=== PATIENT | female | born 1935 | race Hispanic/Latino ===

== ENCOUNTER 2017-06-09 13:52 | Emergency (ER) | payer MEDICARE ==
[~2017-06-09] VITALS: Ht 142.2 cm; Wt 35.4 kg
--- NOTE | ~2017-06-09 | EKG ---
[facility] [address] [facility], [place] [address] Draft EK completed, results pending confirmation PATIENT NAME: ARAMIS STARK Electrocardiogram DATE OF : 33 PHYSICIAN: PRELIMINARY REPORT #: [id number] REPORT IS CONFIDENTIAL AND NOT TO BE RELEASED WITHOUT AUTHORIZATION
[~2017-06-09 13:52] MED LIST: ALBUTEROL2.5 MG/3 M INH; ASPIR-LOW81 MG PO; AZITHROMYCIN500 MG PO; BENAZEPRIL HCL20 MG PO; BUSPIRONE HCL5 MG PO; CEPHALEXIN500 M1 PO; DEXILANT60 MG PO; FERROUS SULFAT325 MG PO; HYDROCHLOROTH12.5 M1 PO; HYDROCODON-ACE1 EAC8 PO; IPRAT-ALBUT 0.5-3 ML INH; LEXAPRO10 MG PO; METOPROLOL TART25 MG PO; MIRALAX17 GM PO; PREDNISONE10 MG PO; RANITIDINE HCL150 MG PO; SYNTHROID50 MCG PO; VITAMIN C500 M1 PO; ZOFRAN ODT4 MG PO
[2017-06-09] MEDS ORDERED: NORCO 7.5-3251 EACH PO (14:15)
[2017-06-09] MEDS ORDERED: BUSPIRONE HCL5 MG PO (14:15)
--- NOTE | 2017-06-09 21:36 | EKG ---
[facility] [address] [facility] [place] [address] Signed Sinus tachycardia Left bundle branch block Abnormal ECG No previous ECGs available Confirmed by YADI HAWK MD ([id number]) on 06/09/2017 9:36:34 PM Electronically Signed By: YADI HAWK MD 06/09/17 2136 PATIENT NAME: JOE STARKNIA EULOGIO Electrocardiogram DATE OF : 33 PHYSICIAN: YADI HAWK MD REPORT #: [id number] REPORT IS CONFIDENTIAL AND NOT TO BE RELEASED WITHOUT AUTHORIZATION
--- NOTE | 2017-06-09 21:36 | EKG ---
[facility] [address] [facility] [place], [place] [address] Signed Sinus tachycardia Left bundle branch block Abnormal ECG When compared with ECG of 09-JUN-2017 14:04, (Unconfirmed) No significant change was found Confirmed by YADI HAWK MD ([id number]) on 06/09/2017 9:36:44 PM Electronically Signed By: YADI HAWK MD 06/09/17 2136 PATIENT NAME: STARKARAMIS Electrocardiogram DATE OF : 33 PHYSICIAN: YADI HAWK MD REPORT #: [id number] REPORT IS CONFIDENTIAL AND NOT TO BE RELEASED WITHOUT AUTHORIZATION
== END 2017-06-09 17:00 ==
LOC: ED 13:52
DX: I44.7 Left bundle-branch block, unspecified (principal); I10 Essential (primary) hypertension; Z88.6 Allergy status to analgesic agent; Z79.899 Other long term (current) drug therapy
CPT/HCPCS: 80053; 84484; 85025; 85610; 93005; 93010; 96374; 99285

== ENCOUNTER 2018-01-08 11:17 | Inpatient (IN) | payer MEDICARE ==
[~2018-01-08] VITALS: Ht 142.2 cm; Wt 43.5 kg
--- OUTSIDE RECORDS SUMMARY | ~2018-01-08 | XMS | Encounter Summary ---
Demographics + + + | Address | [address] | | | [place] [address] | + + + | Home Phone | | + + + | Preferred Language | Unknown | + + + | Marital Status | | + + + | Hindu Affiliation | 1041 | + + + | Race | Unknown | + + + | Ethnic Group | Unknown | + + + Author + + + | Author | [facility] | | | and Rajinderana | + + + | Organization | [facility] | | | and Rajinderana [...] Team Providers + +------+ + | Care Pin Game Machine Inspector Name | Role | Phone | + [...] + + | 10/21/ | Office | [facility] [place] | Ranjan Gómez MD | Chest pain, | | 2018 | Visit | CARDIOLOGY [address] | | unspecified type | | | | [place], | | | | | | [place] [address] | | | | | | [phone] | | | +--------+---------+ + + + [...] on file | | + + + as of this encounter Last Filed Vital Signs + + + + | Vital Sign | Reading | Time Taken | + + + + | Blood Pressure | 145/72 | 10/21/20171127 PDT | + + + + | Pulse | 45 | 10/21/20171127 PDT | + + + + | Temperature | - | - | + + + + | Respiratory Rate | 14 | 10/21/20171127 PDT | + + + + | Oxygen Saturation | - | - | + + + + | Inhaled Oxygen | - | - | | Concentration | | | + + + + | Weight | 36 kg (79 lb 5.9 oz) | 10/21/20171127 PDT | + + + + | Height | 142.2 cm (4' 8") | 10/21/20171127 PDT | + + + + | Body Mass Index | 17.79 | 10/21/20171127 PDT | + + + + in this encounter Instructions Patient Instructions - Sirisha Rich RN - 10/21/2017 1100 PDT Decrease Amiodarone to 100mg one time daily Follow up appointment: 6 months Provider: Ranjan Gómez MD Date: Check-In Time: in this encounter Progress Notes Ranjan Gómez MD - 10/21/2017 1100 PDTFormatting of this note may be different from the o riginal. PATIENT NAME: Luz Falcon : 1935: AGE: 82 y.o. PRIMARY CARE: Brooks Cardnoa MD CARDIOLOGY CLINIC PROGRESS NOTE Ms. Falcon [...] change was found Confirmed by JOLENE LOWE, [facility] ([id number] on 10/21/2017 4:29:15 PM IMAGING: No results found. Resting ECG 10/21/17: Sinus bradycardia 45 bpm, first-degree AV block, left bundle branch b lock, when compared with prior ECG dated , the CA interval is slightly more prolonge d DIAGNOSES [...] this patient. Ranjan Gómez MD, 11/03/2017 11:39 in this encounter Plan of Treatment Not on fileas of this encounter Procedures + +--------+ + + + | Procedure Name | Priori | Date/Time | Associated Diagnosis | Comments | | | ty | | | | + +--------+ + + + | ECG 12 LEAD | Routin | 10/21/2017 | Chest pain, | Results for this | | | e | 1139 PDT | unspecified type | procedure are in the | | | | | | results section. | + +--------+ + + + in this encounter Results ECG 12 lead (10/21/2017 1139) + + + + + | Component | Value | Ref Range | Performed At | + + + + + | VENTRICULAR RATE EKG | 45 | BPM | [facility] | + + + + + | ATRIAL RATE | 45 | BPM | [facility] | + + + + + | P-R INTERVAL | 202 | ms | [facility] | + + + + + | QRS DURATION | 152 | ms | [facility] | + + + + + | Q-T INTERVAL | 548 | ms | [facility] | + + + + + | Q-T INTERVAL | 474 | ms | [facility] | | (CORRECTED) | | | | + + + + + | P WAVE AXIS | 67 | degrees | [facility] | + + + + + | QRS AXIS | 5 | degrees | [facility] | + + + + + | T AXIS | 66 | degrees | [facility] | + + + + + | INTERPRETATION TEXT | Sinus bradycardiaLeft | | [facility] | | | bundle branch | | | | | blockAbnormal ECGWhen | | | | | compared with ECG of | | | | | 10-JUL-2017 13:17,No | | | | | significant change was | | | | | foundConfirmed by | | | | | JOLENE LOWE, MATT | | | | | ([id number]) on 10/21/2017 | | | | | 4:29:15 PM | | | + + + + + + + + | Narrative | Performed At | + + + | | | + + + + +---------+ + + | Performing | Address | City/State/Zipcode | Phone Number | | Organization | | | | + +---------+ + + | [facility] | | | | + +---------+ + + in this encounter Visit Diagnoses + + | Diagnosis | + + | Chest pain, unspecified type | + +
--- OUTSIDE RECORDS SUMMARY | ~2018-01-08 | XMS | Clinical Summary ---
Demographics + + + | Address | [address] | | | [place] [address] | + + + | Home Phone | | + + + | Preferred Language | Unknown | + + + | Marital Status | | + + + | Confucianism Affiliation | 1041 | + + + | Race | Unknown | + + + | Ethnic Group | Unknown | + + + Author + + + | Author | [facility] | | | and Rajinderana | + + + | Organization | [facility] | | | and Rajinderana [...] Team Providers + +------+ + | Care Service Station Console Operator Name | Role | Phone | + +------+ + | Brooks Cardona MD | PP | | + +------+ + Allergies + + + + + + | Active Allergy | Reactions | Severity | Noted | Comments | | | | | Date | | + + + + + + | Acetaminophen | Itching | Low | 05/18/19 | | | | | | 15 | | + + + + + + Current Medications + + +--------+---------+------+------+-------+ | Prescription | Sig. | Disp. | Refills | Star | End | Statu | | | | | | t | Date | s | | | | | | Date | | | + + +--------+---------+------+------+-------+ | busPIRone (BUSPAR) | Take 5 mg by mouth 3 | | | | | Activ | | 5 mg tablet | times daily. | | | | | e | + + +--------+---------+------+------+-------+ | dexlansoprazole | Take 60 mg by mouth | | | | | Activ | | (DEXILANT) [address] | Daily. | | | | | e | | capsule | | | | | | | + + +--------+---------+------+------+-------+ | ferrous sulfate | Take 325 mg by mouth | | | | | Activ | | 325 mg tablet | 2 times daily (with | | | | | e | | | breakfast & | | | | | | | | dinner). | | | | | | + + +--------+---------+------+------+-------+ | | Take 1 tablet by | | | | | Activ | | HYDROcodone-acetamin | mouth 3 times daily. | | | | | e | | ophen (NORCO) | | | | | | | | 7.5-325 mg per | | | | | | | | tablet | | | | | | | + + +--------+---------+------+------+-------+ | metoprolol | Take 25 mg by mouth | | | | | Activ | | tartrate (LOPRESSOR) | 2 times daily. | | | | | e | | 25 mg tablet | | | | | | | + + +--------+---------+------+------+-------+ | Multiple | Take 1 tablet by | | | | | Activ | | Vitamins-Minerals | mouth Daily. | | | | | e | | (ADULT MULTIVITAMIN | | | | | | | | WITH MINERALS/IRON) | | | | | | | | TABS | | | | | | | + + +--------+---------+------+------+-------+ | ascorbic acid | Take 500 mg by mouth | | | | | Activ | | (VITAMIN C) 500 mg | Daily. | | | | | e | | tablet | | | | | | | + + +--------+---------+------+------+-------+ | apixaban (ELIQUIS) | Take 1 tablet by | 60 | 1 | 02/2 | | Activ | | 2.5 mg tablet | mouth 2 times daily. | tablet | | 1/20 | | e | | | | | | 18 | | | + + +--------+---------+------+------+-------+ | aspirin 81 MG EC | Take 1 tablet by | 30 | | 02/2 | | Activ | | tablet | mouth Daily. | tablet | | 2/20 | | e | | | | | | 18 | | | + + +--------+---------+------+------+-------+ | | Take 1 tablet by | 30 | 5 | 03/2 | | Activ | | hydroCHLOROthiazide | mouth Daily. | tablet | | 2/20 | | e | | 25 mg tablet | | | | 18 | | | + + +--------+---------+------+------+-------+ | benazepril | Take 40 mg by mouth | | | | | Activ | | (LOTENSIN) 40 MG | Daily. Patient is | | | | | e | | tablet | taking 20mg in the | | | | | | | | am and 20mg in the | | | | | | | | pm | | | | | | + + +--------+---------+------+------+-------+ | amiodarone | Take 0.5 tablets by | 45 | 3 | 07/0 | 08/0 | Activ | | (PACERONE) 200 mg | mouth Daily. | tablet | | 3/20 | 2/20 | e | | tablet | | | | 18 | 19 | | + + +--------+---------+------+------+-------+ Active Problems + + + | Problem | Noted Date | + + + | Chest pain | 10/21/2017 | + + + | Influenza A | 06/10/2017 | + + + | Paroxysmal atrial flutter (HCC) | 06/10/2017 | + + + | Moderate protein-calorie malnutrition (HCC) | 06/10/2017 | + + + | Essential hypertension | 06/10/2017 | + + + | GERD (gastroesophageal reflux disease) | 06/10/2017 | + + + Encounters +--------+---------+ + + + | Date | Type | Specialty | Care Team | Description | +--------+---------+ + + + | 10/21/ | Office | | Ranjan Gómez MD | Chest pain, | | 2018 | Visit | | | unspecified type | +--------+---------+ + + + from Last 3 Months [...] | Blood Pressure | 145/72 | 10/21/2017 1128 PDT | + + + + | Pulse | 45 | 10/21/20171127 PDT | + + + + | Temperature | 35.7 C (96.3 F) | 06/11/2017755 PST | + + + + | Respiratory Rate | 14 | 10/21/20171127 PDT | + + + + | Oxygen Saturation | 98% | 06/11/2017755 PST | + + + + | Inhaled [...] 10/21/20171127 PDT | + + + + Plan of Treatment + + + + + | Health Maintenance | Due Date | Last Done | Comments | + + + + + | Vaccine: | | | | | Dtap/Tdap/Td (1 - | 4 | | | | Tdap) | | | | + + + + + | Vaccine: Zoster (1 | | | | | of 2) | 5 | | | + + + + + | Vaccine: | | 01/19/2014 | | | Pneumococcal 65+ | 5 | | | | Low/Medium Risk (2 | | | | | of 2 - PPSV23) | | | | + + + + + | Vaccine: Influenza | | | | | (#1) | 8 | | | + + + + [...] section. | + +--------+ + + + from Last 3 Months Results ECG 12 lead (10/21/2017 1139) + [...] foundConfirmed by | | | | | MATT FERNÁNDEZ MD | | | | | ([id number]) on 10/21/2017 | | | | | [...] Last 3 Months Insurance + +--------+ +--------+ +---------+ | Payer | Benefi | Subscriber | Type | Phone | Address | | | t Plan | ID | | | | | | / | | | | | | | Group | | | | | + +--------+ +--------+ +---------+ | MEDICARE | MEDICA | [id number] | Medica | [phone] | | | RE | | re | [phone] | | | | PART A | | | | | | | AND B | | | | | + +--------+ +--------+ +---------+ + +--------+ +--------+ + + | Guarantor Name | Accoun | Relation to | Date | Phone | Billing Address | | | t Type | Patient | of | | | | | | | | | | + +--------+ +--------+ + + | LUZ STARK | Person | Self [birth year] | Home: | [address] | | | al/Fam | | 1936 | [phone] | [place] [address] | | | josephine | | | [phone] | | + +--------+ +--------+ + +
[~2018-01-08 11:17] MED LIST changes: +NORCO 7.5-3251 EACH PO; -VITAMIN C500 M1 PO; +VITAMIN C500 M5 PO
--- NOTE | 2018-01-08 16:10 | NUR ---
PATIENT TO THE ROOM. ASSISTED TO BED FROM . DAUGHTER IN ROOM TO ASSIST WITH COMMUNICATION. PATIENT WEAK WITH TRANSFER NEEDING ASSISTANCE. REPOSITIONED IN BED. VITALS DONE. ORIENTED TO ROOM. ASSESSMENT COMPLETE. IV PLACED. SCHEDULED TYLENOL AND TORADOL GIVEN. PATIENT RATING PAIN 6/10.
--- NOTE | 2018-01-08 16:45 | NUR ---
CRYO CUFF IN ROOM. SET UP WITH BREAKFAST ORDER. ENSURE BROUGHT TO ROOM.
[2018-01-08] MEDS ORDERED: HYDROCHLOROTHIA25 MG PO (17:19)
[2018-01-08] MEDS ORDERED: AMIODARONE HCL200 MG PO (17:21)
[2018-01-08] MEDS ORDERED: ELIQUIS2.5 MG PO (17:21)
[2018-01-08] MEDS ORDERED: ONDANSETRON ODT8 MG PO (17:22)
--- NOTE | 2018-01-08 17:45 | NUR ---
TEDS, SCDS, HEEL PROTECTORS PLACED ON PATIENT.
--- NOTE | 2018-01-08 17:45 | NUR ---
PATIENT WAS A DIRECT ADMIT FROM [facility] THIS AFTERNOON. PATIENT WILL BE SWG BED WHILE SHE IS HERE. DR. MCLAUGHLIN HERE TO SEE PATIENT ONCE TO FLOOR. VITALS DONE. IV STARTED. PRN PAIN MEDICATION ORDERED. PATIENT IS PRIMARY SLOVENIAN SPEAKING. DOING WELL WITH FOLLOW INSTRUCTIONS AND ANSWERING QUESTIONS. IF ANY QUESTIONS PLEASE CALL DAUGHTER. NUMBER IS ON THE BOARD. TEDS, SCDS, CYRO, AND HEEL PROTECTORS ON PATIENT. PLAN TO WORK WITH PT AND OT WHILE SHE IS HERE.
--- NOTE | 2018-01-08 21:35 | NUR ---
COOP WITH ASSESSMENT6, TURNS EASILY IN BED, MEDICATED WITH TORADOL IV, DRESSING INTACT R KNEE, TEDHOSE, SCDS, HEEL PROTECTORS IN PLACE, CRYOCUFF IN PLACE
--- NOTE | 2018-01-08 21:59 | NUR ---
Declined MOM and Tylenol. "I get sores in my head states"
--- NOTE | 2018-01-09 00:01 | NUR ---
RESTING, NO C/O PAIN, NO REQUESTS, CRYOCUFF, SCDS, JASPER HOSE, HEEL PROTECTORS IN PLACE, DRESSING R KNEE CDI, GOOD CMS. FRESH WATER WITH NO ICE GIVEN. SL INTACT
--- NOTE | 2018-01-09 01:59 | NUR ---
RESTING, NO C/O PAIN, EARLIER DECLINED TYLENOL SCHEDULED , CRYOCUFF, SCDS, JASPER HOSE AND HEEL PROTECTORS IN PLACE, TURNS SELF IN BED
--- NOTE | 2018-01-09 03:00 | NUR ---
ASSUMED CARE FOR THIS PT AT 0230. PAIN AT THIS TIME IS 6/10, SCHEDULED TORADOL TO BE GIVEN. PT DENIED ANY OTHER NEEDS AT THIS TIME.
--- NOTE | 2018-01-09 05:05 | NUR ---
PT IS RESTING AT THIS TIME.
--- NOTE | 2018-01-09 06:09 | NUR ---
SINCE 229 PT HAD AN UNEVENTFUL NIGHT. SO FAR PT HAS ONLY REQUIRED HER SCHEDULED DOSE OF TORADOL FOR PAIN. PT REFUSES TYLENOL. V/S WDL, KRAMEE TO RIGHT KNEE. NO NEW CONCERNS AT THIS TIME.
--- NOTE | 2018-01-09 07:55 | NUR ---
PATIENT AWAKE IN BED WITH HOB ELEVATED. PATIENT REQUEST TO USE BR. STBY ASSIST TO BR. PATIENT STATING WHILE RESTING IN BED PAIN WAS 3/10. 6/10 WHEN AMBULATING. PATIENT VOIDED 150MLS OF URINE. ASSISTED TO CHAIR FOR BREAKFAST. COFFEE GIVEN TO PATIENT. WARM BLANKER. PATIENTS CRYO FILLED WITH ICE. CALL LIGHT GIVEN TO PATIENT. PATIENT VERY STRONG WITH ACTIVITY. UPDATED ON PLAN OF CARE AND PLAN FOR MEDICATION THIS MORNING WITH BREAKFAST.
--- NOTE | 2018-01-09 09:49 | NUR ---
PATIENT FINISHED BREAKFAST. DOING WELL. EATING 50 PERCENT. ASSISTED IN ORDERING LUNCH. PATIENT STATING HER CURRENT PAIN RATING IS 3/10 WITH THE TORADOL THAT WAS GIVEN THIS MORNING. UPDATED ON PLAN OF CARE TO DO PT THIS MORNING. ASKED IF SHE WOULD LIKE MORE PAIN MEDICATION BEFORE THERAPY. PATIENT STATED OF RIGHT NOW SHE IS DOING WELL. UPDATED CHELSEY FROM PT THAT SHE IS READY WHEN EVER SHE IS TO WORK WITH HER. CALL LIGHT WITHIN REACH. PATIENT SITTING IN CHAIR WITH LEGS ELEVATED.
--- NOTE | 2018-01-09 10:02 | NUR ---
physical therapy in room working with patient.
--- NOTE | 2018-01-09 10:49 | NUR ---
patient resting in bed. patient stated having 6/10 pain. oxy 5 mg given. patient request to take just one pill at this time. scds, cryo, and heel protectors in place. no other needs at this time.
--- NOTE | 2018-01-09 11:40 | NUR ---
PATIENT SET UP FOR LUNCH. PATEINT CURRENTLY ON HER PHONE. STATING JUST EAT IN BED AT THIS TIME. PAIN OKAY AT THIS TIME.
--- NOTE | 2018-01-09 11:57 | NUR ---
THIS MORNING PATIENT WAS ALREADY SITTING UP IN HER CHAIR. LINENS CHANGED.
[2018-01-09] MEDS ORDERED: BENAZEPRIL HCL40 MG PO (11:58)
--- NOTE | 2018-01-09 12:07 | NUR ---
MED REC COMPLETE
--- NOTE | 2018-01-09 12:09 | NUR ---
COME IN TO CHECK ON HER TO SEE IF SHE WAS DONE WITH LUNCH AND SHE WAS THAN SHE SAID SHE HAD TO USE THE RESTROOM TOOK HER WAITED UNTIL SHE WAS DONE. NOW SITTING UP IN THE CHAIR WAITING DO GET A BED BATH DONE.
--- NOTE | 2018-01-09 12:38 | NUR ---
PATIENT IS SITTING UP IN CHAIR BED BATH DONE. CRYO ON AND FEET UP CALL LIGHT NEXT TO HER.
--- NOTE | 2018-01-09 13:22 | NUR ---
PATIENT SITTING UP IN CHAIR. PATIENT STATED NO PAIN AT THIS TIME.
--- NOTE | 2018-01-09 13:54 | NUR ---
PATIENT WORKING WITH PT. AMBULATING IN ANTOINE. TOLERATING THE ENTIRE LAP WELL.
--- NOTE | 2018-01-09 15:15 | NUR ---
WALKED INTO HER ROOM AROUND 1500 AND PATIENT WAS SLEEPING SO I LEFT THE NEWSPAPERS ON HER BEDSIDE TABLE. NOW SHE HAS VISITORS IN HER ROOM.
--- NOTE | 2018-01-09 15:22 | NUR ---
PATIENT HAD FMAILY VISITORS. GAVE SCHEDULED MEDICATION. PATIENT STATED THAT HER PAIN IS 8/10. OXY 5 MG GIVEN WITH PLAN TO RECHECK IN 30 MIN AND IF PAIN NOT IMPROVED THAN GIVEN ANOTHER 5 MG OXY. PATIENT AGREED. ORDERED DINNER. CRYO FILLED WITH ICE AT THIS TIME.
--- NOTE | 2018-01-09 16:43 | NUR ---
MARYJANETNET DOING WELL TODAY. SCHEDULED TYLENOL GIVEN. OXY 5 MG GIVEN X 2. AMBULATED IN THE ANTOINE WITH PT. TOLERATING WELL. CRYO, TEDS, SCDS, AND HEEL PROTECTORS SET UP FOR PATIENT. ENCOURAGING PO. OFFERING ENSURE INBETWEEN MEALS.
--- NOTE | 2018-01-09 18:14 | NUR ---
patient requesting to ambulate in rowley. patient tolerated well. ambulated well. assisted to br to brush her teeth. assisted back to bed. patient tolerated well.
--- NOTE | 2018-01-09 20:00 | NUR ---
RECEIVED REPORTAT 0, FOUND PT IN BED SLEEPING. PT DENIED PAIN AND HAD NO OTHER NEEDS OR CONCERNS AT THAT TIME.
--- NOTE | 2018-01-09 20:15 | NUR ---
FILLED CRYO WITH FRESH ICE. PT NEEDS NOTHING AT THIS TIME.
--- NOTE | 2018-01-09 22:00 | NUR ---
V/S ARE WDL, SOME VERY FINE CRACKLES NOTED IN THE BASES. ABD SOUNDS ARE ACTIVE. RIGHT KNEE DRESSING IS C/D/I, EDEMA ON RIGHT KNEE IS MINIMAL. PEDIS PULSES ARE +2. PAIN IS WELL CONTROLLED WITH SCHEDULED AND PRN PAIN MEDS AVAILABLE. SCHEDULED TYLENOL WAS GIVEN AND PT DID NOT REFUSE. NO NEW CONCERNS AT THIS TIME.
--- NOTE | 2018-01-10 | NUR ---
PT IS SLEEPING AT THIS TIME.
--- NOTE | 2018-01-10 00:20 | NUR ---
MAINTENANCE DATA ANALYST ROUNDING. PT RESTING WITH EYES CLOSED, APPEARS TO BE SLEEPING, PT WAKES EASILY WHEN MOLD PRESS OPERATOR ENTERS THE ROOM. CALL LIGHT WITHIN REACH.
--- NOTE | 2018-01-10 01:35 | NUR ---
HELPED PT TO THE BATHROOM AND BACK TO BED WITH HER FWW. FILLED HER CRYO WITH MORE ICE. BEDSIDE TABLE AND CALL LIGHT IN REACH. BED ALARM SET.
--- NOTE | 2018-01-10 02:00 | NUR ---
PT AT THIS TIME IS SLEEPING. NO NEW CONCERNS AT THIS TIME.
--- NOTE | 2018-01-10 06:38 | NUR ---
PT SLEPT MOST OF THIS SHIFT. V/S ARE WDL, RIGHT KNEE EDEMA IS MINIMAL. PEDIS PULSES ARE +2 KRYO TO RIGHT KNEE. PAIN IS WELL CONTROLLED AND PT IS ABLE TO GET IN AND OUT OF BED BY HERSELF. BILATERAL LOWER LOBES HAVE FINE CRACKLES PRESENT. UPPER LOBES ARE CLEAR. PT DENIES SOB. NO NEW CONCERNS SO FAR THIS SHIFT.
--- NOTE | 2018-01-10 08:46 | NUR ---
Kimberleyt used restroom, she is up in her chair using the cryo cuff, she ate her breakfast and is currently relaxing, patient needed no other assistance at the time, will recheck soon
--- NOTE | 2018-01-10 11:15 | NUR ---
DR MCLAUGHLIN CALLED TO CLARIFY MEDICATION ADMINISTRATION. BP TAKEN AT BEGINNING OF MED PASS AND SBP FOUND TO BE 100. DR MCLAUGHLIN ORDERED AMIODARONE TO BE GIVEN WITH MED PASS TO CONTROL HER HEART RATE. HCTZ, BENAZAPRIL, AND METOPROLOL HELD. WILL FOLLOW BPs THROUGHOUT DAY. IF BP ELEVATES LATER IN SHIFT, DR MCLAUGHLIN STATED HE WOULD LIKE METOPROLOL GIVEN, BUT WILL CALL TO CLARIFY ABOUT OTHER MEDS WELL. PT SITTING UP IN RECLINER WITH CRYOCUFF IN PLACE. NO NEEDS AT THIS TIME.
--- NOTE | 2018-01-10 11:35 | NUR ---
0735 RECIEVED CHANGE OF SHIFT REPORT FROM RIKY DIEGO. PATIENT RESTING COMFORTABLY IN BED. DR. MCLAUGHLIN IN ROOM VISITING PATIENT. NO COMPLAINTS AT THIS TIME. CALL LIGHT WITHIN REACH. POSSESSIONS AT BEDSIDE. 1050: ROUNDED ON PATIENT FOR MEDICATION ADMINISTRATON AND ASSESSMENT. PATIENT'S BLOOD PRESSURE 100/73, DR. MCLAUGHLIN NOTIFIED AND STATED TO HOLD HYDROCHLOROTHIZIDE, METOPROPOLOL, AND BENAZEPRIL, WILL CONTINUE TO MONITOR PATIENTS BLOOD PRESSURE THROUGHOUT THE DAY. PATIENT STATED PAIN WAS A "5/10" SCHEDULED TORADOL ADMINISTERED AND PRN OXYCODONE. PATIENT UP WITH PHYSICAL THERAPIST, PATIENT STATES THEY FEEL "GOOD" AFTER THERAPY SESSION. CALL LIGHT WITHIN REACH. CRYOCUFF ON. NO MORE COMPLAINTS AT THIS TIME. WILL CONTINUE TO MONITOR PAIN LEVELS. POSSESSIONS AT BEDSIDE.
--- NOTE | 2018-01-10 12:25 | NUR ---
ROUNDED ON PATIENT TO ASSESS PAIN LEVEL. PATIENT REPORTS "3/10" PAIN, WHICH DECREASED FROM A PREVIOUS "5/10" PAIN LEVEL. PATIENT RESTING COMFORTABLY IN CHAIR EATING LUNCH. PATIENT REPORTS AN INCREASED APPETITE. EDUCATED ON USING CALL LIGHT, PATIENT EXPRESSED UNDERSTANDING. NO MORE COMPLAINTS AT THIS TIME. WILL CONTINUE TO MONITOR PATIENT.
--- NOTE | 2018-01-10 13:50 | NUR ---
THIS RN ASSISTED WITH SET UP FOR SHOWER. DAUGHTER ASSISTING WITH ACTUAL SHOWER. THIS RN COVERED IV WITH ZIPLOC AND FOAM TAPE. GRANDDAUGHTER AT BEDSIDE ALSO.
--- NOTE | 2018-01-10 14:32 | NUR ---
ROUNDED ON PATIENT FOR MEDICATION ADMINISTRATION. PATIENT UP IN CHAIR AFTER TAKING SHOWER, STATED THAT THE SHOWER MADE HER FEEL A LOT BETTER. BLOOD PRESSURE REASSESSED: 125/67, MAP: 78, PULSE: 69, TEMPERATURE: 98.0, O2 SATS: 100%. ASSESSED PATIENT'S PAIN LEVEL, REPORTS "6/10" PAIN IN RIGHT KNEE, PATIENT WOULD LIKE ANOTHER OXYCODONE, PLAN TO BRING PATIENT ANOTHER DOSE AROUND 1530. BROUGHT PATIENT FRESH WATER. NO MORE COMPLAINTS AT THIS TIME. CALL LIGHT WITHIN REACH.
--- NOTE | 2018-01-10 18:24 | NUR ---
ROUNDED ON PATIENT TO REASSESS PAIN. PATIENT REPORTS "5/10" PAIN IN RIGHT KNEE. PATIENT STATES THEY WOULD LIKE TO GET UP IN THE HALLWAY AND WALK, PLAN TO HAVE PATIENT AMBULATE SOON.
--- NOTE | 2018-01-10 18:50 | NUR ---
PATIENT UP WITH ELECTRIC DRILL OPERATOR WALKING IN HALLWAY. EDUCATION PROVIDED TO PATIENT ABOUT THE IMPORTANCE OF HAVING ASSISTANCE WHILE AMBULATING IN ROOM WITH FWW, PATIENT EXPRESSED UNDERSTANDING, CONTINUES TO AMBULATE IN ROOM AFTER EDUCATION WAS PROVIDED. WILL CONTINUE TO REINFORCE.
--- NOTE | 2018-01-10 20:00 | NUR ---
RECEIVED REPORT AT 1900, PT WAS WALKING FROM THE HALLWAY TO HER ROOM AT THAT TIME. PT WAS ASKED TO STAY SEATED UNTIL REPORT WAS DONE. PT HOWEVER PROCEEDED TO WALK AROUND IN HER ROOM ALONE. PT WAS EDUCATED IN REGARDS TO SAFETY POLICY OF THIS HOSPITAL. PT AGREED AND SAT AT THE EDGE OF HER BED. PT WANTED TO GET HER NITGHT GOWN ON AND GET READY FOR BED. I TOLD HER THAT I WOULD RETURN AFTER REPORT AND HELP HER WITH ALL THAT.
--- NOTE | 2018-01-10 20:02 | NUR ---
PATIENT IS ALERT AND ORIENTED X4. SWING BED. RECIEVED PRN OXYCODONE FOR PAIN, LAST DOSE WAS ADMINISTERED AT 1540. WORKED WITH PHYSICAL THERAPY TODAY. SHOWERED TODAY. ONLY ADMINISTRED AMIODARONE WITH MORNING MEDICATIONS FOR BLOOD PRESSURE DUE TO 100/73 BP, DOCTOR ARNOLDO AWARE. SALINE LOCKED. DRESSING ON RIGHT KNEE, CDI. MAY NEED BED/CHAIR ALARM DUE TO PATIENT NOT USING CALL LIGHT APPROPRIATELY TO AMBULATE.
--- NOTE | 2018-01-10 22:00 | NUR ---
ASSISTED PT WITH BEDTIME ROUTINE. V/S ARE WDL, RIGHT KNEE HAS MINIMAL EDEMA AND AQUACEL DRESSING IS C/D/I. PT IS DOING VERY WELL WALKING AND GEETING IN AND OUT OF BED ON HER OWN. ALL LOBES ARE CLEAR, ABD SOUNDS ARE PRESENT. NO NEW CONCERNS FOR THIS PT AT THIS TIME. PT IS IN BED SLEEPING.
--- NOTE | 2018-01-11 00:08 | NUR ---
PT IS SLEEPING AT THIS TIME.
--- NOTE | 2018-01-11 02:00 | NUR ---
PT IS SLEEPING AT THIS TIME.
--- NOTE | 2018-01-11 02:28 | NUR ---
ASSISTED PT TO AND FROM BATHROOM, PT STATED PAIN IS TOLERABLE AT THIS TIME. I NOTED THAT HER RIGHT KNEE AND LOWER LEG EDEMA HAS INCREASED SOME. KENNY TO RIGHT KNEE. WILL CONTINUE TO MONITOR.
--- NOTE | 2018-01-11 04:03 | NUR ---
PT IS SLEEPING AT THIS TIME.
--- NOTE | 2018-01-11 04:23 | NUR ---
ASSISTED PT TO BATHROOM AND BACK TO BED. PT STATED THAT HER PAIN IS NOT TOO BAD. PT BACK IN BED TRYING TO SLEEP. NO NEW CONCERNS AT THIS TIME.
--- NOTE | 2018-01-11 05:31 | NUR ---
PT OVERALL HAD AN UNEVENTFUL NIGHT. NO PRN PAIN MEDICATION NEEDED SO FAR. PT IS ABLE TO FUNCTION ON HER OWN. KRYO TO RIGHT KNEE. NO NEW CONCERNS NOTED FOR THIS PT SO FAR THIS SHIFT.
[2018-01-11] MEDS ORDERED: NEURONTIN300 MG PO (08:07)
[2018-01-11] MEDS ORDERED: OXYCODONE HCL5 MG PO (08:07)
--- NOTE | 2018-01-11 08:23 | NUR ---
PATIENT WAS ASSISTED BY NURSE IN THE BATHROOM, AND WENT TO THE CHAIR, VISITED HER, SHE IS CURRENTLY EATING HER BREAKFAST.
--- NOTE | 2018-01-11 08:50 | NUR ---
ROUNDED ON PATIENT FOR MORNING ASSESSMENT AND MEDICATION ADMINSTRATION. UP IN CHAIR. CALL LIGHT WITHIN REACH. RECIEVED PRN OXYCODONE FOR PAIN. PLAN TO WORK WITH PHYSICAL THERAPY THIS AM. POSSESSIONS AT BEDSIDE. NO MORE NEEDS AT THIS TIME. SALINE LOCKED. NO MORE NEEDS AT THIS TIME.
--- NOTE | 2018-01-11 10:52 | NUR ---
PATIENT BEING DISCHARGED FROM PHYSICAL THEARPY, PATIENT ABLE TO AMBULATE IN HALLS AND STAIRS MULTIPLE TIMES. REPORTS PAIN CONTROLLED, WITH ACTIVITY PATIENT REPORTS PAIN 3/10, TOLERABLE. NOTIFIED DR. MCLAUGHLIN VIA TELEPHONE OF PATIENT STATUS, AND NOTIFIED OF SCRIPT NEEDING TO BE SIGNED. DR. MCLAUGHLIN VERBAL ORDER FOR UA, AND THAT HE WILL BE IN LATER THIS AFTERNOON.
--- NOTE | 2018-01-11 11:16 | NUR ---
ROUNDED ON PATIENT TO REASSESS PAIN LEVEL, PATIENT REPORTS A "3/10" PAIN LEVEL AND DOING "OK". PATIENT REPORTS THAT THEY TOLERATED PHYSICAL THERAPY AND "IT WENT WELL". PATIENT GAVE LUNCH ORDER TO NURSING STAFF TO PROVIDE TO DIETARY, DIETARY NOTIFIED. CALL LIGHT WITHIN REACH. POSSESSIONS AT BEDSIDE. PATIENT UP TO CHAIR AND RESTING COMFORTABLY. PLAN TO PLACE CRYOCUFF ON PATIENT'S RIGHT KNEE. NO MORE NEEDS AT THIS TIME.
--- NOTE | 2018-01-11 11:52 | NUR ---
CRYOCUFF ON AND IN PLACE.
--- NOTE | 2018-01-11 12:32 | NUR ---
COLLECTED URINE SAMPLE, SENT TO LAB. DAUGHTER ASSISTING PATIENT WITH DRESSING. NEW COMPRESSION STOCKINGS PROVIDED.
--- NOTE | 2018-01-11 12:45 | NUR ---
ROUNDED ON PATIENT TO REPLACE ANTISLIP SOCKS DUE TO OLDER PAIR BECOMING DIRTY. WAIT TO FIND COMPRESSION SOCKS THAT ARE PATIENTS SIZE, WILL PLACE ON PATIENT ONCE THOSE ARE RECIEVED. CRYOCUFF PLACED ON PATIENT. FAMILY AT BEDSIDE. CALL LIGHT WITHIN REACH. NO COMPLAINTS AT THIS TIME.
--- NOTE | 2018-01-11 14:09 | NUR ---
ROUNDED ON PATIENT FOR MEDICATION ADMINISTRTION. PATIENT REPORTED A "7/10" PAIN LEVEL, SCHEDULED TYLENOL AND TORADOL GIVEN, PRN OXYCODONE ADMINISTRED WELL. PATIENT UP TO RESTROOM AND BACK UP IN CHAIR. FAMILY AT BEDSIDE. NO MORE COMPLAINTS AT THIS TIME. CALL LIGHT WITHIN REACH. CRYOCUFF IN PLACE.
--- NOTE | 2018-01-11 14:50 | NUR ---
TOOK OUT PATIENT IV, CATHETER IN TACT
--- NOTE | 2018-01-11 15:21 | NUR ---
PATIENT DISCHARGED HOME WITH DAUGHTER, RATES PAIN 3/10 ON PAIN SCALE, REPORTS TOLERABLE. DISCUSSED MEDICATIONS AND DISCHARGE INSTRUCTIONS. PROIVED DC EDUCATION IN REGARDS TO S/S OF INFECTION AND HOME CARE. PATIENT TO FOLLOW UP WITH OUTPATIENT PHYSICAL THERAPY AND CALL TO MAKE AN APPOINTMENT FOR FOLLOW UP WITH DR. MCLAUGHLIN. XIAO LYNN.
--- NOTE | 2018-01-12 07:24 | DS ---
[facility] [address] [place] [address] Signed ADMISSION DATE: 01/08/2018 DISCHARGE DATE: 01/11/2018 ADMISSION DIAGNOSIS: Status post right total knee. DISCHARGE DIAGNOSIS: Status post right total knee. PROCEDURE PERFORMED THIS HOSPITALIZATION: None. BRIEF HISTORY: Luz is an 82-year-old female, who underwent total knee arthroplasty at an outside facility on Friday, but needed continued inpatient rehab and wished to be closer to home. I accepted her on transfer and placed her on swing bed. She was given physical therapy daily and did well. She was able to ambulate up and down the rowley and up and down stairs by discharge. She was kept on DVT prophylaxis of SCDs, TEDs, and her normal blood thinner. The apixaban was kept to 2.5 mg b.i.d. She was kept on a regular diet and her lab work remained normal throughout her hospitalization. She was felt to be stable for discharge by physical therapy today and would be discharged to home with continued outpatient rehab. Should she have any problems, she will notify me or her doctor in [facility]. Solis Brandon MD BA/AMIE /[id number] Copies: ~ Electronically Signed By: SOLIS BRANDON MD 01/12/18 0724 PATIENT NAME: LUZ STARK DISCHARGE SUMMARY DATE OF : 33 REPORT #: [id number] PHYSICIAN: SOLIS BRANDON MD PCP: POPEYE HOWARD MD REPORT IS CONFIDENTIAL AND NOT TO BE RELEASED WITHOUT AUTHORIZATION
== END 2018-01-11 15:10 | disposition home or self-care (01) | DRG 555 ==
LOC: MS 11:17
PROVIDERS: ADMIT Specialist
DX: M25.561 Pain in right knee (principal); J18.9 Pneumonia, unspecified organism; Z96.651 Presence of right artificial knee joint; I44.7 Left bundle-branch block, unspecified; R00.0 Tachycardia, unspecified; I10 Essential (primary) hypertension; K21.9 Gastro-esophageal reflux disease without esophagitis; D64.9 Anemia, unspecified
CPT/HCPCS: 81001; 97110; 97116; 97162; G8978; G8979; G8980; J1885

== ENCOUNTER 2019-11-14 19:23 | Emergency (ER) | payer MEDICARE ==
[~2019-11-14] VITALS: Ht 142.2 cm; Wt 40.4 kg
--- OUTSIDE RECORDS SUMMARY | ~2019-11-14 | XMS | Encounter Summary ---
Demographics + + + | Address | [address] | | | [place] [address] | + + + | Home Phone | | + + + | Preferred Language | Unknown | + + + | Marital Status | | + + + | Caodaism Affiliation | 1041 | + + + | Race | Unknown | + + + | Ethnic Group | Unknown | + + + Author + + + | Author | [facility] | | | and [place] | + + + | Organization | [facility] | | | and [place] | + + + | Address | Unknown | + + + | Phone | Unavailable | + + + Support + + +---------+ + | Name | Relationship | Address | Phone | + + +---------+ + | Jeana Brandon | ECON | Unknown | | + + +---------+ + Care Team Providers + +------+ + | Care Vegetable Loader Machine Operator Name | Role | Phone | + +------+ + | Brooks Cardona MD | PCP | | + +------+ + Reason for Visit + + + | Reason | Comments | + + + | Medication Refill | | + + + Encounter Details +--------+--------+ + + + | Date | Type | Department | Care Team | Description | +--------+--------+ + + + | 07/20/ | Refill | [facility] | Ranjan Gómez MD | Medication Refill | | 2018 | | CARDIOLOGY [address] | | | | | [place], | [place], [place] | | | | | [place] [address] | [address] | | | | | [phone] | | | +--------+--------+ + + + Social History + +-------+ +--------+------+ | Tobacco Use | Types | Packs/Day | Years | Date | | | | | Used | | + +-------+ +--------+------+ | Never Smoker | | | | | + +-------+ +--------+------+ + +---+---+---+ | Smokeless Tobacco: | | | | | Never Used | | | | + +---+---+---+ + + + | Sex Assigned at | Date Recorded | | | | + + + | Not on file | | + + + documented as of this encounter Plan of Treatment Not on filedocumented as of this encounter Visit Diagnoses Not on filedocumented in this encounter"
--- OUTSIDE RECORDS SUMMARY | ~2019-11-14 | XMS | Encounter Summary ---
Demographics + + + | Address | [address] | | | [place] [address] | + + + | Home Phone | | + + + | Preferred Language | Unknown | + + + | Marital Status | | + + + | Sikhism Affiliation | 1041 | + + + | Race | Unknown | + + + | Ethnic Group | Unknown | + + + Author + + + | Author | [facility] | | | and [place] | + + + | Organization | [facility] | | | and [place] | [...] Team Providers + +------+ + | Care Senior Linux Administrator Name | Role | Phone | + [...] Description | +--------+--------+ + + + | 02/18/ | Refill | [facility] [place] | Ranjan Gómez MD | Medication Refill | | 2018 | | CARDIOLOGY [address] | | | | | [place], | [place], [place] | | | | | [place] [address] | [address] | | | | | [phone] | | | +--------+--------+ + + + [...]
--- OUTSIDE RECORDS SUMMARY | ~2019-11-14 | XMS | Encounter Summary ---
Demographics + + + | Address | [address] | | | [place] [address] | + + + | Home Phone | | + + + | Preferred Language | Unknown | + + + | Marital Status | | + + + | Yazdanism Affiliation | 1041 | + + + | Race | Unknown | + + + | Ethnic Group | Unknown | + + + Author + + + | Author | [facility] | | | and [place] | + + + | Organization | [facility] | | | and [place] [...] Team Providers + +------+ + | Care Kiss Machine Operator Name | Role | Phone | + +------+ + | Brooks Cardona MD | PCP | | + +------+ + Reason for Visit + + + | Reason | Comments | + + + | Follow-up | | + + + | Chest Pain | | + + + Encounter Details +--------+---------+ + + + | Date | Type | Department | Care Team | Description | +--------+---------+ + + + | 10/21/ | Office | [facility] | Ranjan Gómez MD | Chest pain, | | 2017 | Visit | CARDIOLOGY [address] | unspecified type | | | | [place], | [place], [place] | | | | | [place] [address] | [address] | | | | | [phone] | | | +--------+---------+ + + + Social History + +-------+ [...] + + documented as of this encounter Last Filed Vital Signs + + + + + | Vital Sign | Reading | Time Taken | Comments | + + + + + | Blood Pressure | 145/72 | 10/21/2017 11:28 AM | | | | | PDT | | + + + + + | Pulse | 45 | 10/21/2017 11:28 AM | | | | | PDT | | + + + + + | Temperature | - | - | | + + + + + | Respiratory Rate | 14 | 10/21/2017 11:28 AM | | | | | PDT | | + + + + + | Oxygen Saturation | - | - | | + + + + + | Inhaled Oxygen | - | - | | | Concentration | | | | + + + + + | Weight | 36 kg (79 lb 5.9 oz) | 10/21/2017 11:28 AM | | | | | PDT | | + + + + + | Height | 142.2 cm (4' 8") | 10/21/2017 11:28 AM | | | | | PDT | | + + + + + | Body Mass Index | 17.79 | 10/21/2017 11:28 AM | | | | | PDT | | + + + + + documented in this encounter Patient Instructions Patient Instructions Sirisha Rich RN - 10/21/2017 11:00 AM PDT Decrease Amiodarone to 100mg one time daily Follow up appointment: 6 months Provider: Ranjan Gómez MD Date: Check-In Time: documented in this encounter Progress Notes Ranjan Gómez MD - 10/21/2017 11:00 AM PDT PATIENT NAME: Luz Falcon : 1935: AGE: 82 y.o. PRIMARY CARE: Brooks Cardona MD CARDIOLOGY CLINIC PROGRESS NOTE Ms. Falcon presents for clinic follow-up. Since her visit of 07/10/17, she is doing well f rom a cardiac viewpoint without complaints of rapid heart beating. She continues on amiodar one 200 mg daily. She is experiencing some right-sided chest pain that is nonexertional and has been a chronic problem in the past. Her blood pressure readings at home have been elev ated at times. MEDICATIONS: Current Outpatient Prescriptions Medication Sig Dispense Refill amiodarone (PACERONE) 200 mg tablet Take 0.5 tablets by mouth Daily. 45 tablet 3 apixaban (ELIQUIS) 2.5 mg tablet Take 1 tablet by mouth 2 times daily. 60 tablet 1 ascorbic acid (VITAMIN C) 500 mg tablet Take 500 mg by mouth Daily. aspirin 81 MG EC tablet Take 1 tablet by mouth Daily. 30 tablet benazepril (LOTENSIN) 40 MG tablet Take 40 mg by mouth Daily. Patient is taking 20mg in the am and 20mg in the pm busPIRone (BUSPAR) 5 mg tablet Take 5 mg by mouth 3 times daily. dexlansoprazole (DEXILANT) [address] capsule Take 60 mg by mouth Daily. ferrous sulfate 325 mg tablet Take 325 mg by mouth 2 times daily (with breakfast & dinn er). hydroCHLOROthiazide 25 mg tablet Take 1 tablet by mouth Daily. 30 tablet 5 HYDROcodone-acetaminophen (NORCO) 7.5-325 mg per tablet Take 1 tablet by mouth 3 times daily. metoprolol tartrate (LOPRESSOR) 25 mg tablet Take 25 mg by mouth 2 times daily. Multiple Vitamins-Minerals (ADULT MULTIVITAMIN WITH MINERALS/IRON) TABS Take 1 tablet b y mouth Daily. No current facility-administered medications for this visit. ALLERGIES Allergies Allergen Reactions Acetaminophen Itching PHYSICAL EXAM Vital signs: Vitals: 10/21/17 1128 BP: 145/72 Pulse: (!) 45 Resp: 14 Admit Weight: Weight: 36 kg (79 lb 5.9 oz) Current weight: Weight: 36 kg (79 lb 5.9 oz) Body mass index is 17.79 kg/m. General: Resting comfortably Chest: Clear Cardiovascular: Nondisplaced apical impulse, regular rhythm, normal S1, paradoxic splitting of S2, S4 present, no S3, jugular venous pressure normal Gastrointestinal: Abdomen soft, non-tender, normal bowel sounds, no organomegaly nor masses . Extremities: No edema Neuro: within normal LABS: Office Visit on 10/21/2017 Component Date Value Ref Range Status VENTRICULAR RATE EKG 10/21/2017 45 BPM Final ATRIAL RATE 10/21/2017 45 BPM Final P-R INTERVAL 10/21/2017 202 ms Final QRS DURATION 10/21/2017 152 ms Final Q-T INTERVAL 10/21/2017 548 ms Final Q-T INTERVAL (CORRECTED) 10/21/2017 474 ms Final P WAVE AXIS 10/21/2017 67 degrees Final QRS AXIS 10/21/2017 5 degrees Final T AXIS 10/21/2017 66 degrees Final INTERPRETATION TEXT 10/21/2017 Final Value:Sinus bradycardia Left bundle branch block Abnormal ECG When compared with ECG of 10-JUL-2017 13:17, No significant change was found Confirmed by JOLENE LOWE, [facility] ([id number]) on 10/21/2017 4:29:15 PM IMAGING: No results found. Resting ECG 10/21/17: Sinus bradycardia 45 bpm, first-degree AV block, left bundle branch b lock, when compared with prior ECG dated , the [place] interval is slightly more prolonge d DIAGNOSES AND ASSESSMENTS: 1. Paroxysmal atrial flutter: The patient remains in a sinus rhythm. She continues on apix aban 2. Hypertension: Patient's blood pressure control remains borderline PLAN OR RECOMMENDATIONS: Decrease amiodarone 100 mg daily Home blood pressure monitoring Clinic follow-up 6 months or sooner as needed I appreciate the opportunity of participating in the care of this patient. Ranjan Gómez MD, 11/03/2017 11:39 documented in this enc ounter Plan of Treatment Not on filedocumented as of this encounter Procedures + +--------+ + + + | Procedure Name | Priori | Date/Time | Associated Diagnosis | Comments | | | ty | | | | + +--------+ + + + | ECG 12 LEAD | Routin | 10/21/2017 | Chest pain, | Results for this | | | e | 11:39 AM | unspecified type | procedure are in the | | | | PDT | | results section. | + +--------+ + + + documented in this encounter Results ECG 12 lead (10/21/2017 11:39 AM PDT) + + + + + + | Component | Value | Ref Range | Performed | Pathologist | | | | | At | Signature | + + + + + + | VENTRICULAR | 45 | BPM | [facility] | | | RATE EKG | | | | | + + + + + + | ATRIAL RATE | 45 | BPM | [facility] | | + + + + + + | P-R | 202 | ms | [facility] | | | INTERVAL | | | | | + + + + + + | QRS | 152 | ms | [facility] | | | DURATION | | | | | + + + + + + | Q-T | 548 | ms | [facility] | | | INTERVAL | | | | | + + + + + + | Q-T | 474 | ms | [facility] | | | INTERVAL | | | | | | (CORRECTED) | | | | | + + + + + + | P WAVE AXIS | 67 | degrees | [facility] | | + + + + + + | QRS AXIS | 5 | degrees | [facility] | | + + + + + + | T AXIS | 66 | degrees | [facility] | | + + + + + + | INTERPRETAT | Sinus bradycardiaLeft | | [facility] | | | ION TEXT | bundle branch | | | | | | blockAbnormal ECGWhen | | | | | | compared with ECG of | | | | | | 10-JUL-2017 13:17,No | | | | | | significant change was | | | | | | foundConfirmed by | | | | | | MATT FERNÁNDEZ MD | | | | | | ([id number]) on 10/21/2017 | | | | | | 4:29:15 PM | | | | + + + + + + + + | Specimen | + + | | + + + + + | Narrative | Performed At | + + + | | | + + + + +---------+ + + | Performing | Address | City/State/Zipcode | Phone Number | | Organization | | | | + +---------+ + + | [facility] | | | | + +---------+ + + documented in this encounter Visit Diagnoses + + | Diagnosis | + + | Chest pain, unspecified type | + + documented in this encounter
--- OUTSIDE RECORDS SUMMARY | ~2019-11-14 | XMS | Encounter Summary ---
Demographics + + + | Address | [address] | | | [place] [address] | + + + | Home Phone | | + + + | Preferred Language | Unknown | + + + | Marital Status | | + + + | Restorationism Affiliation | 1041 | + + + | Race | Unknown | + + + | Ethnic Group | Unknown | + + + Author + + + | Author | [facility] | | | and [place] | + + + | Organization | [facility] | | | and [...] Team Providers + +------+ + | Care Certified Juvenile Probation Officer Name | Role | Phone | + +------+ + PCP | Unavailable | + +------+ + Encounter Details +--------+ + + + + | Date | Type | Department | Care Team | Description | +--------+ + + + + | 10/02/ | Hospital | [facility] | Conversion | Postmenopausal | | 1995 - | Encounter | [facility] | Transaction, | bleeding | | | | CLINICAL DECISION | Provider Unknown | | | 10/04/ | | [address] | | | | 1996 | | [place], [place] | | | | | | [address] | | | | | | [phone] | | | +--------+ + + + + Social History + +-------+ +--------+------+ | Tobacco Use | Types | Packs/Day | Years | Date | | | | | Used | | + +-------+ +--------+------+ | Never Assessed | | | | | + +-------+ +--------+------+ + + + | Sex Assigned at | Date Recorded | | | | + + + | Not on file | | + + + documented as of this encounter Plan of Treatment Not on filedocumented as of this encounter Visit Diagnoses + + | Diagnosis | + + | Postmenopausal bleeding | + + documented in this encounter"
--- OUTSIDE RECORDS SUMMARY | ~2019-11-14 | XMS | Encounter Summary ---
Demographics + + + | Address | [address] | | | [place] [address] | + + + | Home Phone | | + + + | Preferred Language | Unknown | + + + | Marital Status | | + + + | Rastafari Affiliation | 1041 | + + + | Race | Unknown | + + + | Ethnic Group | Unknown | + + + Author + + + | Author | [facility] | | | and [place] | + + + | Organization | [facility] | | | and [place] | [...] Team Providers + +------+ + | Care Student Driving Instructor Name | Role | Phone | + [...] Description | +--------+--------+ + + + | 09/25/ | Refill | [facility] [place] | Ranjan Gómez MD | Medication Refill | | 2019 | | CARDIOLOGY [address] | | | | | [place], | [place], [place] | | | | | [place] [address] | [address] | | | | | [phone] | | | +--------+--------+ + + + [...]
--- OUTSIDE RECORDS SUMMARY | ~2019-11-14 | XMS | Encounter Summary ---
Demographics + + + | Address | [address] | | | [place] [address] | + + + | Home Phone | | + + + | Preferred Language | Unknown | + + + | Marital Status | | + + + | Restoration Affiliation | [id number] | + + + | Race | Unknown | + + + | Ethnic Group | Unknown | + + + Author + + + | Author | [facility] | | | and Rajinderana | + + + | Organization | [facility] | | | and Rajinderana | [...] Team Providers + +------+ + | Care Exceptional Needs Teacher Name | Role | Phone | + +------+ + | Brooks Cardona MD | PCP | | + +------+ + Encounter Details +--------+ + + + + | Date | Type | Department | Care Team | Description | +--------+ + + + + | 08/21/ | Abstract | [facility] | Ranjan Gómez MD | | | 2018 | | CARDIOLOGY [address] | | | | | [place], | [place] | | | | | [place] [address] | [address] | | | | | [phone] | | | +--------+ + + + [...] | + +--------+ + + + | EXTERNAL LAB: SUZE | Routin | 08/18/2017 | | Results for this | | | e | | | procedure are in the | | | | | | results section. | + +--------+ + + + | EXTERNAL LAB: | Routin | 08/18/2017 | | Results for this | | GLUCOSE | e | | | procedure are in the | | | | | | results section. | + +--------+ + + + | EXTERNAL LAB: ALT | Routin | 08/18/2017 | | Results for this | | | e | | | procedure are in the | | | | | | results section. | + +--------+ + + + | EXTERNAL LAB: AST | Routin | 08/18/2017 | | Results for this | | | e | | | procedure are in the | | | | | | results section. | + +--------+ + + + | EXTERNAL LAB: | Routin | 08/18/2017 | | Results for this | | BILIRUBIN, TOTAL | e | | | procedure are in the | | | | | | results section. | + +--------+ + + + | EXTERNAL LAB: | Routin | 08/18/2017 | | Results for this | | ALBUMIN | e | | | procedure are in the | | | | | | results section. | + +--------+ + + + | EXTERNAL LAB: | Routin | 08/18/2017 | | Results for this | | PROTEIN, TOTAL | e | | | procedure are in the | | | | | | results section. | + +--------+ + + + | EXTERNAL LAB: | Routin | 08/18/2017 | | Results for this | | CALCIUM | e | | | procedure are in the | | | | | | results section. | + +--------+ + + + | EXTERNAL LAB: CARBON | Routin | 08/18/2017 | | Results for this | | DIOXIDE | e | | | procedure are in the | | | | | | results section. | + +--------+ + + + | EXTERNAL LAB: | Routin | 08/18/2017 | | Results for this | | CHLORIDE | e | | | procedure are in the | | | | | | results section. | + +--------+ + + + | EXTERNAL LAB: | Routin | 08/18/2017 | | Results for this | | POTASSIUM | e | | | procedure are in the | | | | | | results section. | + +--------+ + + + | EXTERNAL LAB: SODIUM | Routin | 08/18/2017 | | Results for this | | | e | | | procedure are in the | | | | | | results section. | + +--------+ + + + | EXTERNAL LAB: EGFR | Routin | 08/18/2017 | | Results for this | | | e | | | procedure are in the | | | | | | results section. | + +--------+ + + + | EXTERNAL LAB: | Routin | 08/18/2017 | | Results for this | | CREATININE | e | | | procedure are in the | | | | | | results section. | + +--------+ + + + | COMPREHENSIVE | Routin | 08/18/2017 | | Results for this | | METABOLIC PANEL | e | | | procedure are in the | | | | | | results section. | + +--------+ + + + documented in this encounter Results Comprehensive Metabolic Panel (08/18/2017) + +-------+ + + + | Component | Value | Ref Range | Performed | Pathologist | | | | | At | Signature | + +-------+ + + + | Anion Gap | 15 | mmol/L | | | + +-------+ + + + | BUN/Creatin | 25.5 | | | | | ine Ratio | | | | | + +-------+ + + + + + | Specimen | + + | Blood | + + External Lab: BUN (08/18/2017) + +-------+ + + + | Component | Value | Ref Range | Performed | Pathologist | | | | | At | Signature | + +-------+ + + + | BUN, | 27 | | | | | External | | | | | + +-------+ + + + External Lab: Glucose (08/18/2017) + +-------+ + + + | Component | Value | Ref Range | Performed | Pathologist | | | | | At | Signature | + +-------+ + + + | Glucose, | 91 | | | | | External | | | | | + +-------+ + + + External Lab: ALT (08/18/2017) + +-------+ + + + | Component | Value | Ref Range | Performed | Pathologist | | | | | At | Signature | + +-------+ + + + | ALT, | 15 | | | | | External | | | | | + +-------+ + + + External Lab: AST (08/18/2017) + +-------+ + + + | Component | Value | Ref Range | Performed | Pathologist | | | | | At | Signature | + +-------+ + + + | AST, | 24 | | | | | External | | | | | + +-------+ + + + External Lab: Bilirubin, Total (08/18/2017) + +-------+ + + + | Component | Value | Ref Range | Performed | Pathologist | | | | | At | Signature | + +-------+ + + + | Bilirubin, | 39 | | | | | Total, | | | | | | External | | | | | + +-------+ + + + External Lab: Albumin (08/18/2017) + +-------+ + + + | Component | Value | Ref Range | Performed | Pathologist | | | | | At | Signature | + +-------+ + + + | Albumin, | 3.9 | | | | | External | | | | | + +-------+ + + + External Lab: Protein, Total (08/18/2017) + +-------+ + + + | Component | Value | Ref Range | Performed | Pathologist | | | | | At | Signature | + +-------+ + + + | Protein, | 6.5 | | | | | Total, | | | | | | External | | | | | + +-------+ + + + External Lab: Calcium (08/18/2017) + +-------+ + + + | Component | Value | Ref Range | Performed | Pathologist | | | | | At | Signature | + +-------+ + + + | Calcium, | 8.9 | | | | | External | | | | | + +-------+ + + + External Lab: Carbon Dioxide (08/18/2017) + +-------+ + + + | Component | Value | Ref Range | Performed | Pathologist | | | | | At | Signature | + +-------+ + + + | Carbon | 21 | | | | | Dioxide, | | | | | | External | | | | | + +-------+ + + + External Lab: Chloride (08/18/2017) + +-------+ + + + | Component | Value | Ref Range | Performed | Pathologist | | | | | At | Signature | + +-------+ + + + | Chloride, | 106 | | | | | External | | | | | + +-------+ + + + External Lab: Potassium (08/18/2017) + +-------+ + + + | Component | Value | Ref Range | Performed | Pathologist | | | | | At | Signature | + +-------+ + + + | Potassium, | 4.5 | | | | | External | | | | | + +-------+ + + + External Lab: Sodium (08/18/2017) + +-------+ + + + | Component | Value | Ref Range | Performed | Pathologist | | | | | At | Signature | + +-------+ + + + | Sodium, | 137 | | | | | External | | | | | + +-------+ + + + External Lab: eGFR (08/18/2017) + +-------+ + + + | Component | Value | Ref Range | Performed | Pathologist | | | | | At | Signature | + +-------+ + + + | eGFR, | 50 | | | | | External | | | | | + +-------+ + + + + + | Specimen | + + | Blood | + + External Lab: Creatinine (08/18/2017) + +-------+ + + + | Component | Value | Ref Range | Performed | Pathologist | | | | | At | Signature | + +-------+ + + + | Creatinine, | 1.06 | | | | | External | | | | | + +-------+ + + + + + | Specimen | + + | Blood | + + documented in this encounter Visit Diagnoses Not on filedocumented in this encounter"
--- OUTSIDE RECORDS SUMMARY | ~2019-11-14 | XMS | Encounter Summary ---
Demographics + + + | Address | [address] | | | [place] [address] | + + + | Home Phone | | + + + | Preferred Language | Unknown | + + + | Marital Status | | + + + | Rastafarian Affiliation | [id number] | + + + | Race | Unknown | + + + | Ethnic Group | Unknown | + + + Author + + + | Author | [facility] | | | and Rajinderana | + + + | Organization | [facility] | | | and Rajinderana | + [...] Team Providers + +------+ + | Care Real Estate Administrator Name | Role | Phone | + +------+ + | Brooks Cardona MD | PCP | | + +------+ + Reason for Visit + + + | Reason | Comments | + + + | Follow-up | | + + + Follow Up (Routine) + +--------+ + + + + | Status | Reason | Specialty | Diagnoses / | Referred By | Referred To | | | | | Procedures | Contact | Contact | + +--------+ + + + + | Authorized | | Cardiology | Diagnoses | Brendan, | Rico | | | | | Essential | Brooks | MD Ranjan | | | | | (primary) | MD Lupis | [address] | | | | | hypertension | [address] [place] | | | | | Procedures | [place] | [place] | | | | | FOLLOW UP | [place], | [address] Phone: | | | | | | [place] [address] | [phone] | | | | | | Phone: | Fax: | | | | | | [phone] | [phone] | | | | | | Fax: | | | | | | | [phone] | | + +--------+ + + + + Encounter Details +--------+---------+ + + + | Date | Type | Department | Care Team | Description | +--------+---------+ + + + | 10/20/ | Office | [facility] [place] | Ranjan Gómez MD | Essential | | 2020 | Visit | CARDIOLOGY [address] | hypertension | | | | [place], | [place], [place] | (Primary Dx); | | | | [place] [address] | [address] | Paroxysmal atrial | | | | [phone] | | flutter (HCC) | +--------+---------+ + + + Social History [...] + + + | Blood Pressure | 146/74 | 10/21/2019 11:02 AM | | | | | PDT | | + + + + + | Pulse | 66 | 10/21/2019 11:02 AM | | | | | PDT | | + + + + + | Temperature | - | - | | + + + + + | Respiratory Rate | 14 | 10/21/2019 11:02 AM | | | | | PDT | | + + + + + | Oxygen Saturation | - | - | | + + + + + | Inhaled Oxygen | - | - | | | Concentration | | | | + + + + + | Weight | 38 kg (83 lb 12.4 | 10/21/2019 11:02 AM | | | | oz) | PDT | | + + + + + | Height | 142.2 cm (4' 8") | 10/21/2019 11:02 AM | | | | | PDT | | + + + + + | Body Mass Index | 18.78 | 10/21/2019 11:02 AM | | | | | PDT | | + + + + + documented in this encounter Patient Instructions Patient Instructions Efrain Bailon RN - 10/21/2019 11:00 AM PDT You will need blood drawn soon. The orders will be faxed to [facility] in [place]. Blood test: Fasting- 12 hours prior to test, no food, no caffiene, water is ok and encourag ed Date Due: soon Where to go for labs: [facility] Follow up appointment: 1 year Provider: Ranjan Gómez MD Date: Check-In Time: documented in this encounter Progress Notes Ranjan Gómez MD - 10/21/2019 11:00 AM PDT PATIENT NAME: Luz Falcon : 1935: AGE: 84 y.o. PRIMARY CARE: Brooks Cardona MD CARDIOLOGY CLINIC PROGRESS NOTE Ms. Falcon presents for clinic follow-up. Since her visit in 11/19/18, she is doing well f rom a cardiac viewpoint without complaints of palpitation. She has been very active physica lly without limiting symptoms. She has not had lab work done since last summer. She contin ues on amiodarone 100 mg daily as well as oral anticoagulation with apixaban. She has had n o black dark or bloody stools. MEDICATIONS: Current Outpatient Medications Medication Sig Dispense Refill amiodarone (PACERONE) 200 mg tablet take 1/2 tablet by mouth once daily 45 tablet 3 apixaban (ELIQUIS) 2.5 mg [...] Take 5 mg by mouth 3 times daily Patient is not taking. citalopram (CELEXA) 10 mg tablet Take 10 mg by mouth Daily. dexlansoprazole (DEXILANT) [address] capsule Take 60 mg by mouth Daily. ferrous sulfate 325 mg tablet Take 325 mg by mouth 2 times daily (with breakfast & dinn er). furosemide (LASIX) 20 mg tablet take 1 tablet by mouth once daily 30 tablet 3 gabapentin (NEURONTIN) 300 mg capsule Patient is not taking. 0 HYDROcodone-acetaminophen (NORCO) 7.5-325 mg per tablet Take 1 tablet by mouth 3 times daily. metoprolol tartrate (LOPRESSOR) 25 mg tablet Take 25 mg by mouth 2 times daily. Multiple Vitamins-Minerals (ADULT MULTIVITAMIN WITH MINERALS/IRON) TABS Take 1 tablet b y mouth Daily. No current facility-administered medications for this visit. ALLERGIES Allergies Allergen Reactions Acetaminophen Itching PHYSICAL EXAM Vital signs: Vitals: 10/21/19 1102 BP: 146/74 Pulse: 66 Resp: 14 Admit Weight: Weight: 38 kg (83 lb 12.4 oz) Current weight: Weight: 38 kg (83 lb 12.4 o z) Body mass index is 18.78 kg/m. General: Alert, resting comfortably Chest: Clear Cardiovascular: Nondisplaced apical impulse, regular rhythm, paradoxic splitting S2, no S3, jugular venous pressure normal Gastrointestinal: Abdomen soft, non-tender, normal bowel sounds, no organomegaly nor masses . Extremities: No edema Neuro: within normal LABS: No visits with results within 7 Day(s) from this visit. Latest known visit with results is: Abstract on 11/24/2018 Component Date Value Ref Range Status Creatinine, External 11/04/2018 1.32* 0.7 - 1.11 Final eGFR, External 11/04/2018 38 Final TSH, External 11/04/2018 1.67 0.27 - 4.2 Final WBC, External 11/04/2018 7.0 4.5 - 11 Final HGB, External 11/04/2018 10.9* 12 - 16 Final HCT, External 11/04/2018 33.7* 35 - 45 Final PLT, External 11/04/2018 323 140 - 440 Final Neutrophils %, External 11/04/2018 62.8 39 - 80 Final Lymphocytes %, External 11/04/2018 23.7* 24 - 44 Final Monocytes %, External 11/04/2018 7.9 0 - 12 Final Eosinophils %, External 11/04/2018 4.6 0 - 6 Final RBC, External 11/04/2018 3.64* 3.8 - 5.1 Final MCV, External 11/04/2018 93 81 - 99 Final RDW, External 11/04/2018 14 10.5 - 15 Final Sodium, External 11/04/2018 140 132 - 143 Final Potassium, External 11/04/2018 5.0 3.6 - 5.1 Final Chloride, External 11/04/2018 108 95 - 112 Final Carbon Dioxide, External 11/04/2018 21 19 - 31 Final Calcium, External 11/04/2018 8.7 8.5 - 10.3 Final Protein, Total, External 11/04/2018 6.7 6 - 8.3 Final Albumin, External 11/04/2018 3.7 3.5 - 5 Final Bilirubin, Total, External 11/04/2018 0.3 0 - 1.2 Final ALP, External 11/04/2018 55 31 - 130 Final AST, External 11/04/2018 20 13 - 39 Final ALT, External 11/04/2018 13 7 - 52 Final Glucose, External 11/04/2018 95 70 - 100 Final BUN, External 11/04/2018 16.0 7 - 21 Final BUN/Creatinine Ratio 11/04/2018 15.9 6.0 - 28.6 Final Globulin 11/04/2018 3.0 1.8 - 3.5 Final Albumin/Globulin Ratio 11/04/2018 1.2 1.1 - 2.4 Final [facility], POC 11/04/2018 30 27 - 33 Final [facility], POC 11/04/2018 32 30 - 36 Final % Basophils 11/04/2018 1.0 0.0 - 2.0 % Final IMAGING: No results found. Resting ECG 10/21/19: Sinus bradycardia 46 bpm, left bundle branch block, when compared wit h prior ECG dated 10/27/18, the sinus rate is slower DIAGNOSES AND ASSESSMENTS: 1. Paroxysmal atrial flutter: The patient has good symptom control on low-dose amiodarone. She continues on oral anticoagulation 2. Congestive heart failure with preserved ejection fraction: Patient continues to do well on low-dose furosemide PLAN OR RECOMMENDATIONS: CMP, TSH, CBC fasting lipid profile Follow-up 1 year or sooner as needed I appreciate the opportunity of participating in the care of this patient. Ranjan Gómez MD,[facility], 10/21/2019 11:24 AM PDT documented in this enc ounter Plan of Treatment Not on filedocumented as of this encounter Procedures + +--------+ + + + | Procedure Name | Priori | Date/Time | Associated Diagnosis | Comments | | | ty | | | | + +--------+ + + + | ECG 12 LEAD | Routin | 10/21/2019 | Essential | Results for this | | | e | 11:27 AM | hypertension | procedure are in the | | | | PDT | Paroxysmal atrial | results section. | | | | | flutter (HCC) | | + +--------+ + + + documented in this encounter Results ECG 12 lead (10/21/2019 11:27 AM PDT) + + + + + + | Component | Value | Ref Range | Performed | Pathologist | | | | | At | Signature | + + + + + + | VENTRICULAR | 46 | BPM | [facility] | | | RATE EKG | | | | | + + + + + + | ATRIAL RATE | 46 | BPM | [facility] | | + + + + + + | P-R | 196 | ms | [facility] | | | INTERVAL | | | | | + + + + + + | QRS | 146 | ms | [facility] | | | DURATION | | | | | + + + + + + | Q-T | 532 | ms | [facility] | | | INTERVAL | | | | | + + + + + + | Q-T | 465 | ms | [facility] | | | INTERVAL | | | | | | (CORRECTED) | | | | | + + + + + + | P WAVE AXIS | 65 | degrees | [facility] | | + + + + + + | QRS AXIS | 26 | degrees | [facility] | | + + + + + + | T AXIS | 64 | degrees | [facility] | | + + + + + + | INTERPRETAT | Sinus bradycardiaLeft | | [facility] | | | ION TEXT | bundle branch | | | | | | blockAbnormal ECGWhen | | | | | | compared with ECG of | | | | | | 27-OCT-2018 08:10,No | | | | | | significant change was | | | | | | foundConfirmed by | | | | | | MATT FERNÁNDEZ MD | | | | | | ([id number]) on 10/25/2019 | | | | | | 2:52:40 PM | | | | + + [...] + | Diagnosis | + + | Essential hypertension - Primary Unspecified essential hypertension | + + | Paroxysmal atrial flutter (HCC) Atrial flutter | + + documented in this encounter
--- OUTSIDE RECORDS SUMMARY | ~2019-11-14 | XMS | Encounter Summary ---
Demographics + + + | Address | [address] | | | [place] [address] | + + + | Home Phone | | + + + | Preferred Language | Unknown | + + + | Marital Status | | + + + | Yazdanism Affiliation | 1041 | + + + | Race | Unknown | + + + | Ethnic Group | Unknown | + + + Author + + + | Author | [facility] | | | and Rajinderana | + + + | Organization | [facility] | | | and Rajinderana [...] Team Providers + +------+ + | Care Design Maker Name | Role | Phone | + +------+ + | Brooks Cardona MD | PCP | | + +------+ + Reason for Visit + + + | Reason | Comments | + + + | Follow-up | | + + + Encounter Details +--------+---------+ + + + | Date | Type | Department | Care Team | Description | +--------+---------+ + + + | 11/19/ | Office | [facility] [place] | Ranjan Gómez MD | Essential | | 2019 | Visit | CARDIOLOGY [address] | hypertension | | | | [place], | [place], [place] | (Primary Dx) | | | | [place] [address] | [address] | | | | [phone] | | | +--------+---------+ + + + [...] + + + | Blood Pressure | 142/76 | 11/19/2018 11:14 AM | | | | | PDT | | + + + + + | Pulse | 68 | 11/19/2018 11:14 AM | | | | | PDT | | + + + + + | Temperature | - | - | | + + + + + | Respiratory Rate | 14 | 11/19/2018 11:14 AM | | | | | PDT | | + + + + + | Oxygen Saturation | - | - | | + + + + + | Inhaled Oxygen | - | - | | | Concentration | | | | + + + + + | Weight | 40.8 kg (90 lb) | 11/19/2018 11:14 AM | | | | | PDT | | + + + + + | Height | 142.2 cm (4' 8") | 11/19/2018 11:14 AM | | | | | PDT | | + + + + + | Body Mass Index | 20.18 | 11/19/2018 11:14 AM | | | | | PDT | | + + + + + documented in this encounter Patient Instructions Patient Instructions Amanda Dillon RN - 11/19/2018 11:00 AM PDT Blood test: Non-fasting Date Due: 3 months Where to go for labs: Lab of your choice, please see lab orders, take them with you to the lab. Follow up appointment: 3 months Provider: Rnajan Gómez MD Date: Check-In Time: documented in this encounter Progress Notes Ranjan Gómez MD - 11/19/2018 11:00 AM PDT PATIENT NAME: Luz Falcon : 1935: AGE: 83 y.o. PRIMARY CARE: Brooks Cardona MD CARDIOLOGY CLINIC PROGRESS NOTE Ms. Falcon presents for clinic follow-up. Since her prior visit of 10/27/18, she is feelin g improved with resolution of orthopnea, cough, and leg swelling. She continues on low-dose furosemide. Chest radiograph on 11/04/18 shows no acute nor chronic pulmonary process. Tr ansthoracic echocardiogram done today shows mild left ventricular systolic dysfunction with regional wall motion abnormality, moderate mitral valve regurgitation and mild pulmonary hyp ertension. There is no obvious significant interval change from her prior echocardiogram in 2018 though the prior echo was technically limited. MEDICATIONS: Current Outpatient Medications Medication Sig Dispense [...] dinn er). furosemide (LASIX) 20 mg tablet Take 1 tablet by mouth Daily. 30 tablet 3 gabapentin (NEURONTIN) 300 mg capsule take 1 capsule by mouth twice a day 0 HYDROcodone-acetaminophen (NORCO) 7.5-325 mg per tablet Take 1 tablet by mouth 3 times daily. metoprolol tartrate (LOPRESSOR) 25 mg tablet Take 25 mg by mouth 2 times daily. Multiple Vitamins-Minerals (ADULT MULTIVITAMIN WITH MINERALS/IRON) TABS Take 1 tablet b y mouth Daily. No current facility-administered medications for this visit. ALLERGIES Allergies Allergen Reactions Acetaminophen Itching PHYSICAL EXAM Vital signs: Vitals: 11/19/18 1114 BP: 142/76 Pulse: 68 Resp: 14 Admit Weight: Weight: 40.8 kg (90 lb) Current weight: Weight: 40.8 kg (90 lb) Body mass index is 20.18 kg/m. General: Alert, resting comfortably Chest: Clear Cardiovascular: Nondisplaced apical impulse, regular rhythm, no S3, jugular venous pressure normal Gastrointestinal: Abdomen soft, non-tender, normal bowel sounds, no organomegaly nor masses . Extremities: No edema Neuro: within normal LABS: Hospital Outpatient Visit on 11/19/2018 Component Date Value Ref Range Status Patient Weight (lbs) 11/19/2018 90 Final Patient Height 11/19/2018 4'8" Final LVIDd 11/19/2018 4.43 cm Final FS 11/19/2018 16 % Final LA volume 11/19/2018 85.57 mL Final Ascending aorta 11/19/2018 3.59 cm Final Aortic arch 11/19/2018 2.87 cm Final AV mean gradient 11/19/2018 4.02 mmHg Final MV mean gradient 11/19/2018 86.36 mmHg Final MV Area by P 1/2 method 11/19/2018 3.72 cm2 Final IVRT 11/19/2018 132.6 msec Final LVOT peak aric 11/19/2018 76.27 cm/s Final LVOT peak VTI 11/19/2018 18.23 cm Final AV peak aric 11/19/2018 142 cm/s Final AV VTI 11/19/2018 32.21 cm Final MR max aric 11/19/2018 608.67 cm/s Final AV peak gradient 11/19/2018 8.07 mmHg Final MV peak gradient 11/19/2018 148.19 mmHg Final MV VTI 11/19/2018 260.96 cm Final MV Pressure 1/2 time 11/19/2018 59.15 msec Final LA Volume Index 11/19/2018 68 mL/m2 Final AV LVOT Peak Gradient 11/19/2018 2.33 mmHg Final AV LVOT Mean Gradient 11/19/2018 1.13 mmHg Final TR Peak Gradient 11/19/2018 36 mmHg Final TR Velocity 11/19/2018 299.44 cm Final LV Diastolic Length 4C 11/19/2018 7.17 cm Final LV Systolic Area PSAX 11/19/2018 13.52 cm2 Final LV Su's Biplane EF 11/19/2018 60 % Final AV Acceleration Time 11/19/2018 82.88 msec Final LV ED Volume (Su's) 11/19/2018 72.7 ml Final LV ED Volume Index 11/19/2018 58 ml/m2 Final LV ES Volume 11/19/2018 28.78 ml Final LVOT Mean Velocity 11/19/2018 49.42 cm/s Final MV A' Lateral Velocity 11/19/2018 8.96 cm/s Final MV E' Lateral Velocity 11/19/2018 8.96 cm/s Final MV A' Septal Velocity 11/19/2018 7.88 cm/s Final MV E' Septal Velocity 11/19/2018 5.62 cm/s Final MV Deceleration [place] 11/19/2018 423.76 cm/s2 Final MV Deceleration Time 11/19/2018 203.97 msec Final MV E/A Ratio 11/19/2018 1.04 Final MV Peak A-Wave 11/19/2018 82.13 cm/s Final MV Peak E-Wave 11/19/2018 85.65 cm/s Final AV Mean Velocity 11/19/2018 93.64 cm/s Final LA/Aorta Ratio 11/19/2018 1.08 Final LA Area 11/19/2018 25.47 cm2 Final LA Systolic Pressure 11/19/2018 13.95 mmHg Final MR [place] Area 11/19/2018 0.21 cm2 Final MV E/E SEPTAL 11/19/2018 15.24 Final MV E/E LATERAL 11/19/2018 9.56 Final LA Major 11/19/2018 0.3221 cm Final LV ES Volume Index 11/19/2018 23 ml/m2 Final LV Area Diastolic 11/19/2018 25.83 cm2 Final Aortic Root Diameter 11/19/2018 3.27 cm Final IVS Diastolic Thickness MM 11/19/2018 0.99 cm Final LVPW Diastolic Thickness MM 11/19/2018 0.92 cm Final IVS Systolic Thickness MM 11/19/2018 1.06 cm Final LV Systolic Diameter MM 11/19/2018 3.73 cm Final LVPW Systolic Thickness MM 11/19/2018 0.9 cm Final AV Cusp Seperation MM 11/19/2018 2.03 cm Final LA Systolic Diameter MM 11/19/2018 3.53 cm Final TAPSE 11/19/2018 1.7 cm Final LVEF-TTE TRANSTHORACIC ECHO 11/19/2018 50 % Final IMAGING: No results found. DIAGNOSES AND ASSESSMENTS: 1. Congestive heart failure with preserved ejection fraction: The patient's symptoms are im proved on low-dose furosemide. She appears well compensated 2. Paroxysmal atrial flutter: The patient remains in a regular rhythm on amiodarone. She c ontinues on oral anticoagulation PLAN OR RECOMMENDATIONS: Home blood pressure monitoring Clinic follow-up 6 months or sooner as needed BMP prior to next visit I appreciate the opportunity of participating in the care of this patient. Ranjan Gómez MD,[facility], 11/21/2018 10:32 documented in this enc ounter Plan of Treatment Not on filedocumented as of this encounter Visit Diagnoses + + | Diagnosis | + + | Essential hypertension - Primary Unspecified essential hypertension | + + documented in this encounter
--- OUTSIDE RECORDS SUMMARY | ~2019-11-14 | XMS | Encounter Summary ---
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 | + +--------+ + + + | EXTERNAL LAB: | Routin | 11/04/2018 | | Results for this | | GLUCOSE | e | | | procedure are in the | | | | | | results section. | + +--------+ + + + | EXTERNAL LAB: LIA | Routin | 11/04/2018 | | Results for this | | | e | | | procedure are in the | | | | | | results section. | + +--------+ + + + | EXTERNAL LAB: AST | Routin | 11/04/2018 | | Results for this | | | e | | | procedure are in the | | | | | | results section. | + +--------+ + + + | EXTERNAL LAB: | Routin | 11/04/2018 | | Results for this | | ALKALINE PHOSPHATASE | e | | | procedure are in the | | | | | | results section. | + +--------+ + + + | EXTERNAL LAB: | Routin | 11/04/2018 | | Results for this | | BILIRUBIN, TOTAL | e | | | procedure are in the | | | | | | results section. | + +--------+ + + + | EXTERNAL LAB: | Routin | 11/04/2018 | | Results for this | | ALBUMIN | e | | | procedure are in the | | | | | | results section. | + +--------+ + + + | EXTERNAL LAB: | Routin | 11/04/2018 | | Results for this | | PROTEIN, TOTAL | e | | | procedure are in the | | | | | | results section. | + +--------+ + + + | EXTERNAL LAB: | Routin | 11/04/2018 | | Results for this | | CALCIUM | e | | | procedure are in the | | | | | | results section. | + +--------+ + + + | EXTERNAL LAB: CARBON | Routin | 11/04/2018 | | Results for this | | DIOXIDE | e | | | procedure are in the | | | | | | results section. | + +--------+ + + + | EXTERNAL LAB: | Routin | 11/04/2018 | | Results for this | | CHLORIDE | e | | | procedure are in the | | | | | | results section. | + +--------+ + + + | EXTERNAL LAB: | Routin | 11/04/2018 | | Results for this | | POTASSIUM | e | | | procedure are in the | | | | | | results section. | + +--------+ + + + | EXTERNAL LAB: SODIUM | Routin | 11/04/2018 | | Results for this | | | e | | | procedure are in the | | | | | | results section. | + +--------+ + + + | EXTERNAL LAB: CBC | Routin | 11/04/2018 | | Results for this | | | e | | | procedure are in the | | | | | | results section. | + +--------+ + + + | EXTERNAL LAB: TSH | Routin | 11/04/2018 | | Results for this | | | e | | | procedure are in the | | | | | | results section. | + +--------+ + + + | EXTERNAL LAB: EGFR | Routin | 11/04/2018 | | Results for this | | | e | | | procedure are in the | | | | | | results section. | + +--------+ + + + | EXTERNAL LAB: | Routin | 11/04/2018 | | Results for this | | CREATININE | e | | | procedure are in the | | | | | | results section. | + +--------+ + + + | COMPREHENSIVE | Routin | 11/04/2018 | | Results for this | | METABOLIC PANEL | e | | | procedure are in the | | | | | | results section. | + +--------+ + + + documented in this encounter Results Comprehensive Metabolic Panel (11/04/2018) + +-------+ + + + | Component | Value | Ref Range | Performed | Pathologist | | | | | At | Signature | + +-------+ + + + | BUN/Creatin | 15.9 | 6.0 - 28.6 | | | | ine Ratio | | | | | + +-------+ + + + | Globulin | 3.0 | 1.8 - 3.5 | | | + +-------+ + + + | Albumin/Madonna | 1.2 | 1.1 - 2.4 | | | | bulin Ratio | | | | | + +-------+ + + + | MCH, POC | 30 | 27 - 33 | | | + +-------+ + + + | MCHC, POC | 32 | 30 - 36 | | | + +-------+ + + + | % Basophils | 1.0 | 0.0 - 2.0 % | | | + +-------+ + + + + + | Specimen | + + | Blood | + + External Lab: BUN (11/04/2018) + +-------+ + + + | Component | Value | Ref Range | Performed | Pathologist | | | | | At | Signature | + +-------+ + + + | BUN, | 16.0 | 7 - 21 | | | | External | | | | | + +-------+ + + + External Lab: Glucose (11/04/2018) + +-------+ + + + | Component | Value | Ref Range | Performed | Pathologist | | | | | At | Signature | + +-------+ + + + | Glucose, | 95 | 70 - 100 | | | | External | | | | | + +-------+ + + + External Lab: ALT (11/04/2018) + +-------+ + + + | Component | Value | Ref Range | Performed | Pathologist | | | | | At | Signature | + +-------+ + + + | ALT, | 13 | 7 - 52 | | | | External | | | | | + +-------+ + + + External Lab: AST (11/04/2018) + +-------+ + + + | Component | Value | Ref Range | Performed | Pathologist | | | | | At | Signature | + +-------+ + + + | AST, | 20 | 13 - 39 | | | | External | | | | | + +-------+ + + + External Lab: Alkaline Phosphatase (11/04/2018) + +-------+ + + + | Component | Value | Ref Range | Performed | Pathologist | | | | | At | Signature | + +-------+ + + + | ALP, | 55 | 31 - 130 | | | | External | | | | | + +-------+ + + + External Lab: Bilirubin, Total (11/04/2018) + +-------+ + + + | Component | Value | Ref Range | Performed | Pathologist | | | | | At | Signature | + +-------+ + + + | Bilirubin, | 0.3 | 0 - 1.2 | | | | Total, | | | | | | External | | | | | + +-------+ + + + External Lab: Albumin (11/04/2018) + +-------+ + + + | Component | Value | Ref Range | Performed | Pathologist | | | | | At | Signature | + +-------+ + + + | Albumin, | 3.7 | 3.5 - 5 | | | | External | | | | | + +-------+ + + + External Lab: Protein, Total (11/04/2018) + +-------+ + + + | Component | Value | Ref Range | Performed | Pathologist | | | | | At | Signature | + +-------+ + + + | Protein, | 6.7 | 6 - 8.3 | | | | Total, | | | | | | External | | | | | + +-------+ + + + External Lab: Calcium (11/04/2018) + +-------+ + + + | Component | Value | Ref Range | Performed | Pathologist | | | | | At | Signature | + +-------+ + + + | Calcium, | 8.7 | 8.5 - 10.3 | | | | External | | | | | + +-------+ + + + External Lab: Carbon Dioxide (11/04/2018) + +-------+ + + + | Component | Value | Ref Range | Performed | Pathologist | | | | | At | Signature | + +-------+ + + + | Carbon | 21 | 19 - 31 | | | | Dioxide, | | | | | | External | | | | | + +-------+ + + + External Lab: Chloride (11/04/2018) + +-------+ + + + | Component | Value | Ref Range | Performed | Pathologist | | | | | At | Signature | + +-------+ + + + | Chloride, | 108 | 95 - 112 | | | | External | | | | | + +-------+ + + + External Lab: Potassium (11/04/2018) + +-------+ + + + | Component | Value | Ref Range | Performed | Pathologist | | | | | At | Signature | + +-------+ + + + | Potassium, | 5.0 | 3.6 - 5.1 | | | | External | | | | | + +-------+ + + + External Lab: Sodium (11/04/2018) + +-------+ + + + | Component | Value | Ref Range | Performed | Pathologist | | | | | At | Signature | + +-------+ + + + | Sodium, | 140 | 132 - 143 | | | | External | | | | | + +-------+ + + + External Lab: CBC (11/04/2018) + + + + + + | Component | Value | Ref Range | Performed | Pathologist | | | | | At | Signature | + + + + + + | WBC, | 7.0 | 4.5 - 11 | | | | External | | | | | + + + + + + | HGB, | 10.9 (A) | 12 - 16 | | | | External | | | | | + + + + + + | HCT, | 33.7 (A) | 35 - 45 | | | | External | | | | | + + + + + + | PLT, | 323 | 140 - 440 | | | | External | | | | | + + + + + + | Neutrophils | 62.8 | 39 - 80 | | | | %, | | | | | | External | | | | | + + + + + + | Lymphocytes | 23.7 (A) | 24 - 44 | | | | %, | | | | | | External | | | | | + + + + + + | Monocytes | 7.9 | 0 - 12 | | | | %, External | | | | | + + + + + + | Eosinophils | 4.6 | 0 - 6 | | | | %, | | | | | | External | | | | | + + + + + + | RBC, | 3.64 (A) | 3.8 - 5.1 | | | | External | | | | | + + + + + + | MCV, | 93 | 81 - 99 | | | | External | | | | | + + + + + + | RDW, | 14 | 10.5 - 15 | | | | External | | | | | + + + + + + External Lab: TSH (11/04/2018) + +-------+ + + + | Component | Value | Ref Range | Performed | Pathologist | | | | | At | Signature | + +-------+ + + + | TSH, | 1.67 | 0.27 - 4.2 | | | | External | | | | | + +-------+ + + + + + | Specimen | + + | Blood | + + External Lab: eGFR (11/04/2018) + +-------+ + + + | Component | Value | Ref Range | Performed | Pathologist | | | | | At | Signature | + +-------+ + + + | eGFR, | 38 | | | | | External | | | | | + +-------+ + + + + + | Specimen | + + | Blood | + + External Lab: Creatinine (11/04/2018) + + + + + + | Component | Value | Ref Range | Performed | Pathologist | | | | | At | Signature | + + + + + + | Creatinine, | 1.32 (A) | 0.7 - 1.11 | | | | External | | | | | + + + + + + + + | Specimen | + + | Blood | + + documented in this encounter Visit Diagnoses Not on filedocumented in this encounter"
--- OUTSIDE RECORDS SUMMARY | ~2019-11-14 | XMS | Encounter Summary ---
Demographics + + + | Address | [address] | | | [place] [address] | + + + | Home Phone | | + + + | Preferred Language | Unknown | + + + | Marital Status | | + + + | Pentecostal Affiliation | [id number] | + + + | Race | Unknown | + + + | Ethnic Group | Unknown | + + + Author + + + | Author | [facility] | | | and Rajinderana | + + + | Organization | [facility] | | | and Rajinderana [...] Team Providers + +------+ + | Care Media Director Name | Role | Phone | + +------+ + | Brooks Cardona MD | PCP | | + +------+ + Reason for Visit Auth/Cert +--------+--------+ + + + + | Status | Reason | Specialty | Diagnoses / | Referred By | Referred To | | | | | Procedures | Contact | Contact | +--------+--------+ + + + + | | | | Diagnoses | | | | | | | NSTEMI | | | +--------+--------+ + + + + Encounter Details +--------+ + + + + | Date | Type | Department | Care Team | Description | +--------+ + + + + | 06/09/ | Hospital | [facility] | Ranjan Alejandre MD | Atrial fibrillation | | 2018 - | Encounter | [facility] | [address] | with RVR ([facility]); | | | | [address] | [place], [place] | Viral URI with | | 06/11/ | | [place] [address] | [id number] | cough; Essential | | 2018 | | [phone] | | hypertension; | | | | | Chen Padron MD | Depression, | | | | | [address] | unspecified | | | | | [place], [place] | depression type; | | | | | [phone] | Typical atrial | | | | | | flutter ([facility]); | | | | | | Influenza A; | | | | | | Moderate | | | | | | protein-calorie | | | | | | malnutrition (HCC) | +--------+ + + + + Social [...] + + + | Blood Pressure | 126/70 | 06/11/2017 7:56 AM | | | | | PST | | + + + + + | Pulse | 60 | 06/11/2017 7:56 AM | | | | | PST | | + + + + + | Temperature | 35.7 C (96.3 F) | 06/11/2017 7:56 AM | | | | | PST | | + + + + + | Respiratory Rate | 18 | 06/11/2017 7:56 AM | | | | | PST | | + + + + + | Oxygen Saturation | 98% | 06/11/2017 7:56 AM | | | | | PST | | + + + + + | Inhaled Oxygen | - | - | | | Concentration | | | | + + + + + | Weight | 37.1 kg (81 lb 12.7 | 06/10/2017 4:00 AM | | | | oz) | PST | | + + + + + | Height | 142.2 cm (4' 8") | 06/09/2017 6:53 PM | | | | | PST | | + + + + + | Body Mass Index | 18.34 | 06/09/2017 6:53 PM | | | | | PST | | + + + + + documented in this encounter Discharge Summaries John Osorio MD - 06/11/2017 11:17 AM PSTFormatting of this note might be different f rom the original. DISCHARGE SUMMARY Patient Name: Luz Falcon : 1935 Date of Admission: 06/09/2017 Date of Discharge: 06/11/17 Admitting Physician: Ranjan Mondragon MD Discharging Physician: John Osorio MD Primary Care Provider: Brooks Cardona MD Discharge Diagnoses: Active Problems: Influenza A Moderate protein-calorie malnutrition GERD (gastroesophageal reflux disease) Essential hypertension Paroxysmal atrial flutter Resolved Problems: * No resolved hospital problems. * Patient Active Problem List Diagnosis Influenza A Paroxysmal atrial flutter Moderate protein-calorie malnutrition Essential hypertension GERD (gastroesophageal reflux disease) Consultants: Dr. Ranjan Alejandre of cardiology Procedures: 06/09 CXR: Findings: Extensive areas of peripheral predominant scarring/fibrosis are seen throughout both lungs. Mildly increased focal prominence of the interstitial markings and slight blunting of the costophrenic sulci is also thought to be most compatible with fibrosis no evidence of pneumothorax or pleural effusion. Heart is normal in size. Scattered degenerative changes are seen throughout the thoracic spine and right shoulder. 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 IMPRESSION - Peripheral predominant areas of interstitial thickening and scarring is thought to most likely represent chronic interstitial fibrosis. Blunting of the costophrenic angles is also most likely compatible with above-mentioned UIP pattern of fibrosis with superimposed infectious etiology unable to be excluded. 06/10 Echo: Conclusions Summary Left ventricle is normal in size and function. Ejection fraction is estimated at 56%. There is grade 1 LV diastolic dysfunction. Mitral valve is mildly thickened with evidence of chordal calcification without significant insufficiency or stenosis. Aortic valve is a sclerotic probable trileaflet valve with good systolic excursion. Tricuspid valve is normal with trace insufficiency and peak velocity consistent with normal pulmonary pressures. Recent Results (from the past 48 hour(s)) Culture, MRSA Result Value Ref Range Culture Negative for MRSA by chromogenic agar method Extra Blue Top Tube Result Value Ref Range Extra Blue Top Tube Done Extra Green Top Tube Result Value Ref Range Extra Green Top Tube Done Extra Lavender Top Tube Result Value Ref Range Extra Lavender Top Tube Done Procalcitonin Result Value Ref Range Procalcitonin 0.14 <=0.50 ng/mL Comment Troponin I Result Value Ref Range Troponin I 0.12 (H) <0.06 ng/mL TSH Result Value Ref Range TSH 0.94 0.45 - 5.33 uIU/mL ECG 12 lead Result Value Ref Range VENTRICULAR RATE EKG 83 BPM ATRIAL RATE 83 BPM P-R INTERVAL 152 ms QRS DURATION 130 ms Q-T INTERVAL 430 ms Q-T INTERVAL (CORRECTED) 505 ms P WAVE AXIS 63 degrees QRS AXIS -27 degrees T AXIS 70 degrees INTERPRETATION TEXT Normal sinus rhythm Left bundle branch block Abnormal ECG No previous ECGs available Confirmed by LOPEZ SAUL MD ([id number]) on 06/10/2017 7:07:54 AM Influenza A and B RNA, NAAT Result Value Ref Range Influenza A PCR Positive (A) Negative Influenza B PCR Negative Negative Troponin I Result Value Ref Range Troponin I 0.11 (H) <0.06 ng/mL Basic Metabolic Panel Result Value Ref Range NA 137 136 - 149 mmol/L K 4.2 3.5 - 5.1 mmol/L CL 103 98 - 109 mmol/L CO2 25 24 - 31 mmol/L ANION GAP 9 3 - 16 mmol/L GLUCOSE 107 70 - 109 mg/dL BUN 24 (H) 7 - 18 mg/dL Creatinine, Serum/Plasma 1.28 0.60 - 1.30 mg/dL eGFR if not 40 (L) >=60 mL/min/1.73m2 CALCIUM 8.7 8.3 - 10.5 mg/dL BUN/CREA 18.8 CBC with Differential Result Value Ref Range WBC 5.4 4.0 - 11.0 K/uL RBC 3.87 3.70 - 5.20 M/uL Hgb 11.7 11.5 - 16.0 g/dL Hct 35.5 34.0 - 47.0 % MCV 91.7 83.0 - 101.0 fL MCH 30.3 28.0 - 35.0 pg MCHC 33.0 32.0 - 36.0 g/dL RDW-CV 12.9 <15.0 % Platelet Count 216 140 - 440 K/uL MPV 8.1 fL % Neutrophils 54.6 45.0 - 82.0 % % Lymphocytes 28.0 20.0 - 45.0 % % Monocytes 13.1 (H) 4.0 - 12.0 % % Eosinophils 3.8 0.0 - 5.0 % % Basophils 0.5 0.0 - 1.0 % Absolute Neutrophils 3.00 1.80 - 8.50 K/uL Absolute Lymphocytes 1.50 0.60 - 3.20 K/uL Absolute Monocytes 0.70 0.00 - 1.00 K/uL Absolute Eosinophils 0.20 0.00 - 0.40 K/uL Absolute Basophils 0.00 0.00 - 0.10 K/uL Magnesium Result Value Ref Range MG 2.5 1.8 - 2.5 mg/dL Troponin I Result Value Ref Range Troponin I 0.08 (H) <0.06 ng/mL Extra Lavender Top Tube Result Value Ref Range Extra Lavender Top Tube Done ECHO Complete Result Value Ref Range LVEF-TTE TRANSTHORACIC ECHO 56 Troponin I Result Value Ref Range Troponin I 0.07 (H) <0.06 ng/mL Reason for Admission: Please refer to the H&P for full details. In short, this is a 81 y.o. female with a histor y of hypertension, recent weight loss, a week of influenza symptoms, who presented with tach ycardia, weakness, found to have atrial flutter with RVR initially. Problem-Oriented Hospital Course: 1. New onset afib/flutter w/ RVR--Converted to NSR after amiodarone drip, has remained in N SR since 06/10. Continue home metoprolol, discussed with Dr. Alejandre and will continue po ami odarone until cardiology follow up in 2-4 weeks. Started apixaban for stroke prophylaxis. Echo showed normal EF, no significant valvular disease, TSH normal, serial trops trended becky n from 0.12 to 0.07. May have underlying CAD, and Dr. Alejandre recommended daily aspirin unti l follow up. 2. Influenza A: --CXR showed chronic scarring, no new consolidations. Afebrile, symptoms for almost a week, no respiratory distress or hypoxia, no indication for oseltamivir. Sympt oms improving daily. 3. HTN--Takes metoprolol, benazepril, and HCTZ at home, and BP here were on the lower side at 101/53 at times. She appeared somewhat hypovolemic on arrival, so advised her to continu e metoprolol, cut benazepril from 40 to 20 mg daily, and stop HCTZ. 4. Depression--continue buspar 5. Moderate protein calorie malnutrition: 20 pound weight loss in last year, encourage outp atient workup. Eating adequately in the hospital, no difficulty swallowing. Code Status: Full Code Disposition: Home Discharge Condition: stable Thin, oriented, pleasant Lungs with scattered rhonchi/crackles Heart RRR in the 60's Abd soft, NT, bowel sounds present No edema, Ext WWP Follow-up Information Brooks Cardona MD In 1 week. Specialty: Family Medicine Contact information: [address] [place] [address] Ranjan Alejandre MD In 2 weeks. Specialties: Interventional Cardiology, Cardiology Contact information: [address] [facility] [address] Discharge Medications New Medications Details amiodarone 200 mg tablet Take 1 tablet by mouth 2 times daily for 30 days. aka: PACERONE apixaban 2.5 mg tablet Take 1 tablet by mouth 2 times daily. aka: ELIQUIS aspirin 81 MG EC tablet Take 1 tablet by mouth Daily. Start: 06/12/2017 Changed Medications Details benazepril 20 mg tablet Take 1 tablet by mouth Daily. What changed: medication strength how much to take aka: LOTENSIN Unchanged Medications Details adult multivitamin with minerals/iron Tabs Take 1 tablet by mouth Daily. ascorbic acid 500 mg tablet Take 500 mg by mouth Daily. aka: VITAMIN C busPIRone 5 mg tablet Take 5 mg by mouth 3 times daily. aka: BUSPAR DEXILANT [address] capsule Generic drug: dexlansoprazole Take 60 mg by mouth Daily. ferrous sulfate 325 mg tablet Take 325 mg by mouth 2 times daily (with breakfast & dinner). HYDROcodone-acetaminophen 7.5-325 mg per tablet Take 1 tablet by mouth 3 times daily. aka: NORCO metoprolol tartrate 25 mg tablet Take 25 mg by mouth 2 times daily. aka: LOPRESSOR Discontinued Medications hydroCHLOROthiazide 12.5 MG capsule aka: MICROZIDE Studies With Pending Results: None Less than 30 minutes were spent on discharge and coordination of post-hospital care. Electronically signed by: John Osorio MD, 06/11/2017 11:17 [facility] documented in this encounter Discharge Instructions Instructions John Osorio MD - 06/11/2017You were admitted with influenza, mild dehyd ration, and fast irregular heart rate. With the medicine amiodarone, your heart rate return ed to normal. You need to take amiodarone twice daily until you follow up with the cardiolo gy team. Take apixaban twice daily to help prevent stroke. Your bloodwork showed slight st ress on the heart on arrival, and you need to take a baby aspirin daily to help prevent hear t attack. The aspirin and apixaban can increase your risk of bleeding, so if you have signi ficant bleeding, stop taking aspirin and apixaban and call your doctor. You were somewhat d ehydrated on arrival, and to avoid dehydration, stop taking hydrochlorothiazide, and decreas e your benazepril from 40 to 20 mg daily. documented in this encounter Medications at Time of Discharge + + + +---------+ + + | Medication | Sig | Dispensed | Refills | Start | End Date | | | | | | Date | | + + + +---------+ + + | apixaban (ELIQUIS) | Take 1 tablet by | 60 | 1 | 06/11/19 | | | 2.5 mg tablet | mouth 2 times daily. | tablet | | 18 | | + + + +---------+ + + | ascorbic acid | Take 500 mg by mouth | | 0 | | | | (VITAMIN C) 500 mg | Daily. | | | | | | tablet | | | | | | + + + +---------+ + + | aspirin 81 MG EC | Take 1 tablet by | 30 | 0 | 06/12/19 | | | tablet | mouth Daily. | tablet | | 18 | | + + + +---------+ + + | busPIRone (BUSPAR) | Take 5 mg by mouth 3 | | 0 | | | | 5 mg tablet | times daily Patient | | | | | | | is not taking. | | | | | + + + +---------+ + + | dexlansoprazole | Take 60 mg by mouth | | 0 | | | | (DEXILANT) [address] | Daily. | | | | | | capsule | | | | | | + + + +---------+ + + | ferrous sulfate | Take 325 mg by mouth | | 0 | | | | 325 mg tablet | 2 times daily (with | | | | | | | breakfast & | | | | | | | dinner). | | | | | + + + +---------+ + + | | Take 1 tablet by | | 0 | | | | HYDROcodone-acetamin | mouth 3 times daily. | | | | | | ophen (NORCO) | | | | | | | 7.5-325 mg per | | | | | | | tablet | | | | | | + + + +---------+ + + | metoprolol | Take 25 mg by mouth | | 0 | | | | tartrate (LOPRESSOR) | 2 times daily. | | | | | | 25 mg tablet | | | | | | + + + +---------+ + + | Multiple | Take 1 tablet by | | 0 | | | | Vitamins-Minerals | mouth Daily. | | | | | | (ADULT MULTIVITAMIN | | | | | | | WITH MINERALS/IRON) | | | | | | | TABS | | | | | | + + + +---------+ + + | amiodarone | Take 1 tablet by | 60 | 0 | 06/11/19 | | | (PACERONE) 200 mg | mouth 2 times daily | tablet | | 18 | 8 | | tablet | for 30 days. | | | | | + + + +---------+ + + | benazepril | Take 1 tablet by | 30 | 1 | 06/11/19 | | | (LOTENSIN) 20 mg | mouth Daily. | tablet | | 18 | 8 | | tablet | | | | | | + + + +---------+ + + documented as of this encounter Progress Notes John Osorio MD - 06/10/2017 6:08 PM PSTFormatting of this note might be different f rom the original. [facility] Hospitalist Progress Note Luz Falcon is a 81 y.o. female SUBJECTIVE: Reports about 20 pound weight loss over the past year, poor appetite. No chest pain curr ently, no acute shortness of breath. No nausea/vomiting, no difficulty swallowing, feels be tter than yesterday. Converted to NSR last night, has remained in NSR. VITALS: Temp: 36.8 C (98.2 F), Pulse: 86, Resp: 24, BP: 112/56, SpO2 97 % on room air at flow r ate L/min Temp Min: 35.7 C (96.3 F) Max: 36.8 C (98.2 F) Weight: 35.5 kg (78 lb 4.2 oz) Intake/Output Summary (Last 24 hours) at 06/10/171815 Last data filed at 06/10/17 1003 Gross per 24 hour Intake 528.2 ml Output 425 ml Net 103.2 ml PHYSICAL EXAM: General: Alert, pleasant, frail, thin Cardiovascular: RRR Respiratory: CTA bilaterally other than scattered rhonchi Abdomen: Soft, scaphoid, bowel sounds present Extremities: No edema Neurological: Alert, no distress Rivera catheter present: No DIAGNOSTIC STUDIES: Available data and images were reviewed personally. Significant results and findings are a ddressed here or in the Assessment and Plan. Recent Results (from the past 24 hour(s)) Culture, MRSA Result Value Ref Range Culture Negative for MRSA by chromogenic agar method Extra Blue Top Tube Result Value Ref Range Extra Blue Top Tube Done Extra Green Top Tube Result Value Ref Range Extra Green Top Tube Done Extra Lavender Top Tube Result Value Ref Range Extra Lavender Top Tube Done Procalcitonin Result Value Ref Range Procalcitonin 0.14 <=0.50 ng/mL Comment Troponin I Result Value Ref Range Troponin I 0.12 (H) <0.06 ng/mL TSH Result Value Ref Range TSH 0.94 0.45 - 5.33 uIU/mL ECG 12 lead Result Value Ref Range VENTRICULAR RATE EKG 83 BPM ATRIAL RATE 83 BPM P-R INTERVAL 152 ms QRS DURATION 130 ms Q-T INTERVAL 430 ms Q-T INTERVAL (CORRECTED) 505 ms P WAVE AXIS 63 degrees QRS AXIS -27 degrees T AXIS 70 degrees INTERPRETATION TEXT Normal sinus rhythm Left bundle branch block Abnormal ECG No previous ECGs available Confirmed by LOPEZ SAUL MD ([id number]) on 06/10/2017 7:07:54 AM Influenza A and B RNA, NAAT Result Value Ref Range Influenza A PCR Positive (A) Negative Influenza B PCR Negative Negative Troponin I Result Value Ref Range Troponin I 0.11 (H) <0.06 ng/mL Basic Metabolic Panel Result Value Ref Range NA 137 136 - 149 mmol/L K 4.2 3.5 - 5.1 mmol/L CL 103 98 - 109 mmol/L CO2 25 24 - 31 mmol/L ANION GAP 9 3 - 16 mmol/L GLUCOSE 107 70 - 109 mg/dL BUN 24 (H) 7 - 18 mg/dL Creatinine, Serum/Plasma 1.28 0.60 - 1.30 mg/dL eGFR if not 40 (L) >=60 mL/min/1.73m2 CALCIUM 8.7 8.3 - 10.5 mg/dL BUN/CREA 18.8 CBC with Differential Result Value Ref Range WBC 5.4 4.0 - 11.0 K/uL RBC 3.87 3.70 - 5.20 M/uL Hgb 11.7 11.5 - 16.0 g/dL Hct 35.5 34.0 - 47.0 % MCV 91.7 83.0 - 101.0 fL MCH 30.3 28.0 - 35.0 pg MCHC 33.0 32.0 - 36.0 g/dL RDW-CV 12.9 <15.0 % Platelet Count 216 140 - 440 K/uL MPV 8.1 fL % Neutrophils 54.6 45.0 - 82.0 % % Lymphocytes 28.0 20.0 - 45.0 % % Monocytes 13.1 (H) 4.0 - 12.0 % % Eosinophils 3.8 0.0 - 5.0 % % Basophils 0.5 0.0 - 1.0 % Absolute Neutrophils 3.00 1.80 - 8.50 K/uL Absolute Lymphocytes 1.50 0.60 - 3.20 K/uL Absolute Monocytes 0.70 0.00 - 1.00 K/uL Absolute Eosinophils 0.20 0.00 - 0.40 K/uL Absolute Basophils 0.00 0.00 - 0.10 K/uL Magnesium Result Value Ref Range MG 2.5 1.8 - 2.5 mg/dL Troponin I Result Value Ref Range Troponin I 0.08 (H) <0.06 ng/mL Extra Lavender Top Tube Result Value Ref Range Extra Lavender Top Tube Done ECHO Complete Result Value Ref Range LVEF-TTE TRANSTHORACIC ECHO 56 Troponin I Result Value Ref Range Troponin I 0.07 (H) <0.06 ng/mL Xr Chest Ap Portable Result Date: 06/09/2017 XR CHEST AP PORTABLE 06/09/2017 8:28 PM HISTORY: coarse breath sounds. COMPARISON: None. Fin dings: Extensive areas of peripheral predominant scarring/fibrosis are seen throughout both lungs. Mildly increased focal prominence of the interstitial markings and slight blunting of the costophrenic sulci is also thought to be most compatible with fibrosis no evidence of p neumothorax or pleural effusion. Heart is normal in size. Scattered degenerative changes are seen throughout the thoracic spine and right shoulder. 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 IMPRESSION - Peripheral predominant areas of interstitial thickening and scarring is thought to most likely represent chronic interstitial fibrosis. Blunting of the costophrenic angles is also most likely compatible with above-mentioned UIP pattern of fibro sis with superimposed infectious etiology unable to be excluded. Dictated and Signed by: Jaspreet Norman MD Electronically signed: 06/09/2017 8:59 PM ASSESSMENT and PLAN: Active Hospital Problems Diagnosis Influenza A Moderate protein-calorie malnutrition GERD (gastroesophageal reflux disease) Essential hypertension Paroxysmal atrial flutter Resolved Hospital Problems Diagnosis Date Noted Date Resolved No resolved problems to display. 1. New onset afib/flutter w/ RVR--Converted to NSR after amiodarone drip, has remained in N SR since 06/10. Continue metoprolol, now on po amiodarone. Started apixaban for stroke prop hylaxis. Echo pending, TSH normal, serial trops trended down from 0.12 to 0.07. 2. Influenza A: --CXR from OSH reportedly negative for infiltrate. Afebrile, symptoms for almost a week, no respiratory distress or hypoxia, no indication for oseltamivr 3. HTN--continue lisinopril and metoprolol. 4. Depression--continue buspar 5. Moderate protein calorie malnutrition: 20 pound weight loss in last year, encourage outp atient workup, nutrition to see in the hospital Disposition : Transfer to floor today Prophylaxis : apixaban Current Facility-Administered Medications: amiodarone 200 mg Oral BID apixaban 2.5 mg Oral BID aspirin 81 mg Oral Daily benzonatate 200 mg Oral TID PRN bisacodyl 10 mg Rectal Daily PRN busPIRone 5 mg Oral TID calcium carbonate 1,000 mg Oral Q4H PRN docusate sodium 100 mg Oral BID PRN ferrous sulfate 325 mg Oral BID WC guaiFENesin 200 mg Oral Q4H PRN HYDROcodone-acetaminophen 1 tablet Oral Q6H PRN ipratropium 500 mcg Nebulization RT Q8H lisinopril 40 mg Oral Daily melatonin 1.5 mg Oral Nightly PRN metoprolol tartrate 25 mg Oral BID pantoprazole 40 mg Oral QAM AC polyethylene glycol 17 g Oral Daily PRN senna 8.6 mg Oral BID PRN Total time of approximately 25 minutes was spent with the patient and/or patient's family, and/or on the patient's floor/unit, of which more than 50% was spent counseling and/or coord ination the patient's care as outlined above. John Osorio 06/10/2017 18:16 [facility] Ranjan Aguero MD - 06/10/2017 2:36 PM PST PATIENT NAME: Luz Falcon : 1935: AGE: 81 y.o. ADMISSION DATE: 06/09/2017 HOSPITAL DAY NUMBER: 1 PRIMARY CARE: Brooks Cardona MD CARDIOLOGY PROGRESS NOTE The patient is alert, sitting up in a chair this morning, feeling clinically improved. The patient converted from atrial flutter to sinus rhythm late last evening on IV amiodarone. She has no complaints of chest pain this morning. Serum troponin levels were 0.12, 0.11, an d 0.08. TSH is in the low range of normal. Chest x-ray showed evidence of chronic fibrotic change without evidence of pneumonitis. The patient remains afebrile with normal white blo od cell count. Her blood pressure control is good. MEDICATIONS: Current Facility-Administered Medications Medication Dose Route Frequency Provider Last Rate Last Dose amiodarone (PACERONE) tablet 200 mg 200 mg Oral BID Ranjan Mondragon MD 200 mg at 0959 apixaban (ELIQUIS) tablet 2.5 mg 2.5 mg Oral BID Ranjan Mondragon MD 2.5 mg at 06/10 0959 aspirin EC tablet 81 mg 81 mg Oral Daily Chen Padron MD 81 mg at 06/10/17 0819 benzonatate (TESSALON) capsule 200 mg 200 mg Oral TID PRN Chen Padron MD bisacodyl (DULCOLAX) suppository 10 mg 10 mg Rectal Daily PRN Chen Padron MD busPIRone (BUSPAR) tablet 5 mg 5 mg Oral TID Chen Padron MD 5 mg at 06/10/17 0819 calcium carbonate (TUMS) chewable tablet 1,000 mg 1,000 mg Oral Q4H PRN Chen Padron MD docusate sodium (COLACE) capsule 100 mg 100 mg Oral BID PRN Chen Padron MD ferrous sulfate tablet 325 mg 325 mg Oral BID WC Chen Padron MD 325 mg at 8 0819 guaiFENesin (ROBITUSSIN) 100 mg/5 mL liquid 200 mg 200 mg Oral Q4H PRN Chen Padron MD ipratropium (ATROVENT) 500 mcg/2.5 mL nebulizer solution 500 mcg 500 mcg Nebulization RT Q8H Sarah Maynard MD 500 mcg at 06/10/17 1433 lisinopril (PRINIVIL,ZESTRIL) tablet 40 mg 40 mg Oral Daily Chen Padron MD 40 mg at 06/10/17 0819 melatonin tablet 1.5 mg 1.5 mg Oral Nightly PRN Chen Padron MD metoprolol tartrate (LOPRESSOR) tablet 25 mg 25 mg Oral BID Chen Padron MD 25 mg at 06/10/17 0819 pantoprazole (PROTONIX) DR tablet 40 mg 40 mg Oral QAM AC Chen Padron MD 40 mg at 06/10/17 0642 polyethylene glycol (MIRALAX) powder 17 g 17 g Oral Daily PRN Chen Padron MD senna (SENOKOT) tablet 8.6 mg 8.6 mg Oral BID PRN Chen Padron MD ALLERGIES Allergies Allergen Reactions Acetaminophen Itching PHYSICAL EXAM Vital signs: Vitals: 06/10/17 1137 BP: 126/59 Pulse: 58 Resp: 20 Temp: 36 C (96.8 F) Admit Weight: Weight: 35.5 kg (78 lb 4.2 oz) Current weight: Weight: 37.1 kg (81 lb 12. 7 oz) Body mass index is 18.34 kg/m. General: Alert, resting comfortably Chest: Coarse breath sounds right posterior lung field with coarse crackles Cardiovascular: Regular rhythm, no S3, jugular venous pressure normal Gastrointestinal: Abdomen soft, non-tender, normal bowel sounds Extremities: No edema Neuro: within normal LABS: Admission on 06/09/2017 Component Date Value Ref Range Status Culture 06/09/2017 Negative for MRSA by chromogenic agar method Final Troponin I 06/09/2017 0.12* <0.06 ng/mL Final Troponin I 06/10/2017 0.11* <0.06 ng/mL Final TSH 06/09/2017 0.94 0.45 - 5.33 uIU/mL Final Extra Blue Top Tube 06/09/2017 Done Final Extra Green Top Tube 06/09/2017 Done Final Extra Lavender Top Tube 06/09/2017 Done Final VENTRICULAR RATE EKG 06/09/2017 83 BPM Final ATRIAL RATE 06/09/2017 83 BPM Final P-R INTERVAL 06/09/2017 152 ms Final QRS DURATION 06/09/2017 130 ms Final Q-T INTERVAL 06/09/2017 430 ms Final Q-T INTERVAL (CORRECTED) 06/09/2017 505 ms Final P WAVE AXIS 06/09/2017 63 degrees Final QRS AXIS 06/09/2017 -27 degrees Final T AXIS 06/09/2017 70 degrees Final INTERPRETATION TEXT 06/09/2017 Final Value:Normal sinus rhythm Left bundle branch block Abnormal ECG No previous ECGs available Confirmed by KG LOWE, LOPEZ ([id number]) on 06/10/2017 7:07:54 AM Influenza A PCR 06/09/2017 Positive* Negative Final Influenza B PCR 06/09/2017 Negative Negative Final Procalcitonin 06/09/2017 0.14 <=0.50 ng/mL Final Comment 06/09/2017 Final < 0.50 ng/mL: Procalcitonin levels below 0.50 ng/mL on the first day of admission represents a low risk f or progression to severe sepsis and/or septic shock, however these do not exclude an infecti on, because localized infections (without systemic signs) may also be associated with such l ow levels. > 2.00 ng/mL: Procalcitonin levels above 2.00 ng/mL on the first day of admission represents a high risk for progression to severe sepsis and/or septic shock. If the procalcitonin measurement is performed shortly after the systemic infection process has started (usually less than 6 hours), these values may still be low. As various non-infec tious conditions are known to induce procalcitonin as well, procalcitonin levels between 0.5 0 ng/mL and 2.00 ng/mL should be reviewed carefully to take into account the specific clinic al background and condition(s) of the individual patient. NA 06/10/2017 137 136 - 149 mmol/L Final K 06/10/2017 4.2 3.5 - 5.1 mmol/L Final CL 06/10/2017 103 98 - 109 mmol/L Final CO2 06/10/2017 25 24 - 31 mmol/L Final ANION GAP 06/10/2017 9 3 - 16 mmol/L Final GLUCOSE 06/10/2017 107 70 - 109 mg/dL Final BUN 06/10/2017 24* 7 - 18 mg/dL Final Creatinine, Serum/Plasma 06/10/2017 1.28 0.60 - 1.30 mg/dL Final eGFR if not 06/10/2017 40* >=60 mL/min/1.73m2 Final CALCIUM 06/10/2017 8.7 8.3 - 10.5 mg/dL Final BUN/CREA 06/10/2017 18.8 Final WBC 06/10/2017 5.4 4.0 - 11.0 K/uL Final RBC 06/10/2017 3.87 3.70 - 5.20 M/uL Final Hgb 06/10/2017 11.7 11.5 - 16.0 g/dL Final Hct 06/10/2017 35.5 34.0 - 47.0 % Final MCV 06/10/2017 91.7 83.0 - 101.0 fL Final MCH 06/10/2017 30.3 28.0 - 35.0 pg Final MCHC 06/10/2017 33.0 32.0 - 36.0 g/dL Final RDW-CV 06/10/2017 12.9 <15.0 % Final Platelet Count 06/10/2017 216 140 - 440 K/uL Final MPV 06/10/2017 8.1 fL Final % Neutrophils 06/10/2017 54.6 45.0 - 82.0 % Final % Lymphocytes 06/10/2017 28.0 20.0 - 45.0 % Final % Monocytes 06/10/2017 13.1* 4.0 - 12.0 % Final % Eosinophils 06/10/2017 3.8 0.0 - 5.0 % Final % Basophils 06/10/2017 0.5 0.0 - 1.0 % Final Absolute Neutrophils 06/10/2017 3.00 1.80 - 8.50 K/uL Final Absolute Lymphocytes 06/10/2017 1.50 0.60 - 3.20 K/uL Final Absolute Monocytes 06/10/2017 0.70 0.00 - 1.00 K/uL Final Absolute Eosinophils 06/10/2017 0.20 0.00 - 0.40 K/uL Final Absolute Basophils 06/10/2017 0.00 0.00 - 0.10 K/uL Final MG 06/10/2017 2.5 1.8 - 2.5 mg/dL Final Troponin I 06/10/2017 0.08* <0.06 ng/mL Final IMAGING: Xr Chest Ap Portable Result Date: 06/09/2017 XR CHEST AP PORTABLE 06/09/2017 8:28 PM HISTORY: coarse breath sounds. COMPARISON: None. Fin dings: Extensive areas of peripheral predominant scarring/fibrosis are seen throughout both lungs. Mildly increased focal prominence of the interstitial markings and slight blunting of the costophrenic sulci is also thought to be most compatible with fibrosis no evidence of p neumothorax or pleural effusion. Heart is normal in size. Scattered degenerative changes are seen throughout the thoracic spine and right shoulder. 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 IMPRESSION - Peripheral predominant areas of interstitial thickening and scarring is thought to most likely represent chronic interstitial fibrosis. Blunting of the costophrenic angles is also most likely compatible with above-mentioned UIP pattern of fibro sis with superimposed infectious etiology unable to be excluded. Dictated and Signed by: Jaspreet Norman MD Electronically signed: 06/09/2017 8:59 PM DIAGNOSES AND ASSESSMENTS: 1. Paroxysmal atrial flutter: Patient converted to sinus rhythm on IV amiodarone. Patient has been treated with Lovenox. After discussion with patient and daughter regarding choice of oral anticoagulant, the patient will be started on low-dose apixaban 2.5 mg twice daily. Her estimated GFR is 40. IV amiodarone will be discontinued and she will be started on ora l amiodarone 200 mg twice daily. She will be discharged home on 200 mg once daily. 2. Mild troponin elevation: Troponin elevation likely due to demand ischemia from tachyca rdia. Patient will have outpatient stress study to assess for inducible ischemia. PLAN OR RECOMMENDATIONS: apixaban 2.5 mg twice daily Amiodarone 200 mg twice daily, 200 mg daily on discharge Cardiology clinic follow-up 2-4 weeks, we will plan on noninvasive testing for ischemia at future date I appreciate the opportunity of participating in the care of this patient. Ranjan Alejandre MD, 06/10/2017 14:36 apphire Mccauley, Pharm D - 06/10/2017 1:05 PM PST PHARMACY SERVICES: ADMISSION MEDICATION REVIEW Luz Falcon is a 81 y.o. female admitted on 06/09/17. Patient is a reliable historian. Location of Patient when reviewed: ED X Medical Floor Patient s prior to admit medication and over the counter (OTC) medications/herbal supplem ents list obtained from: X Verbal interview X Patient ABLE to recall name, strength, and directions X Pharmacy list names: [facility] insurance reported information X Care Everywhere X Outside Information Vaccines up to date? Yes No Unsure Influenza X Pneumococcal X Tdap X Shingles X Noted medications discrepancies or medication-related issues: Medication added: Medication: Prior to Admission Sig: Benazepril 40mg 1 tab by mouth daily Buspirone 5mg 1 tab by mouth three times daily Dexlansoprazole DR 60mg 1 capsule by mouth daily Ferrous sulfate 325mg 1 tab by mouth twice daily with food Hydrochlorothiazide 12.5mg caps 1 capsule by mouth daily Hydrocodone-acetaminophen 7.5-325 mg 1 tab by mouth three times daily scheduled dose Metoprolol tartrate 25mg 1 tab by mouth twice daily Ascorbic acid 500mg 1 tab by mouth daily multivitamin 1 tab by mouth daily Best possible 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 benazepril (LOTENSIN) 40 MG tablet Take 40 mg by mouth Daily. busPIRone (BUSPAR) 5 mg tablet Take 5 mg by mouth 3 times daily. dexlansoprazole (DEXILANT) [address] capsule Take 60 mg by mouth Daily. ferrous sulfate 325 mg tablet Take 325 mg by mouth 2 times daily (with breakfast & dinner). hydroCHLOROthiazide (MICROZIDE) 12.5 MG capsule Take 12.5 mg by mouth Daily. HYDROcodone-acetaminophen (NORCO) 7.5-325 mg per tablet Take 1 tablet by mouth 3 times morro y. metoprolol tartrate (LOPRESSOR) 25 mg tablet Take 25 mg by mouth 2 times daily. Multiple Vitamins-Minerals (ADULT MULTIVITAMIN WITH MINERALS/IRON) TABS Take 1 tablet by cox monett Daily. Medication review performed and electronically signed by Estee Anderson, Paint Spraying Machine Operator Helper 2017 12:53 Reviewed by Sapphire Mccauley, PharmD 06/10/2017 13:04 Dioni Jackson, PharmD - 06/10/2017 6:11 AM PSTFormatting of this note might be different from the origi nal. RENAL DOSE ADJUSTMENT PER PHARMACY PROTOCOL: Subjective/Objective: Luz Falcon is a 81 y.o. year old female admitted on 06/09/2017 16:25 for NSTEMI and i s receiving ENOXAPARIN for NSTEMI. BP 116/65 | Pulse 54 | Temp 35.8 C (96.4 F) (Oral) | Resp 18 | Ht 1.422 m (4' 8") | Wt 37.1 kg (81 lb 12.7 oz) | SpO2 96% | BMI 18.34 kg/m Intake/Output Summary (Last 24 hours) at 06/10/17 0611 Last data filed at 06/10/17 0500 Gross per 24 hour Intake 120 ml Output 425 ml Net -305 ml Recent Labs Lab 06/10/17 0107 CREA 1.28 CrCl cannot be calculated (Unknown ideal weight.). Date 06/10 Day of therapy 1 Serum Creatinine 1.28 CrCl (mL/min) 19 Dose - current 36 mg q12hr Dose - new 36 mg q24hr Assessment/Plan: 1. For creatinine clearance <30 mL/min, decrease dose of ENOXAPARIN from 36 mg q12hr to 36 mg q24hr. 2. Pharmacy will continue to follow and adjust dose as appropriate to clinical condition an d creatinine clearance changes RENAL DOSE ADJUSTMENT PROTOCOL Electronically signed by: Dioni Patrick PharmDemond 06/10/2017 6:11 documented in this encounter H&P Notes Chen Padron MD - 06/09/2017 7:56 PM PST HISTORY AND PHYSICAL EXAMINATION Pt. Name/Age/: Luz Falcon 81 y.o. 1935 Date of admission: 06/09/2017 Admitting Physician: Chen Padron Primary Care Physician: Brooks Cardona History taken from: patient and past medical records Chief Complaint/Reason for Visit: Sent for new onset afib History of Present Illness: 81yoF w/ hx of HTN, depression, who presented to OSH for 1 week of viral symptoms with inte rmittent palpitations and chest tightness. She says that she had a fever the first few days of her illness, but this has subsided. She says that she still has a nonproductive cough, but this has been improving as well. She notes that when the episodes of palpitations happe n, her chest feels very tight and it is hard to breathe. These last for different lengths o f time. She denies any hx of [place] or CVA. She has otherwise been pretty healthy. Her daught er had noted to other providers that she had issues with SVT with a bout of pneumonia in the past. Patient currently feels fine, and has since converted back to NSR on amio gtt starte d by cardiology. Past Medical History: No past medical history on file. No past surgical history on file. Allergies: Allergies Allergen Reactions Acetaminophen Itching Current Medications: Current Facility-Administered Medications Medication Dose Route Frequency Provider Last Rate Last Dose amiodarone (CORDARONE) 1.8 mg/mL in dextrose 5% 500 mL infusion 1 mg/min Intravenous T itrated Ranjan Mondragon MD 33.3 mL/hr at 06/09/171933 1 mg/min at 06/09/171933 Followed by [START ON 06/10/2017] amiodarone (CORDARONE) 1.8 mg/mL in dextrose 5% 500 mL infusion 0 .5 mg/min Intravenous Titrated Ranjan Mondragon MD benzonatate (TESSALON) capsule 200 mg 200 mg Oral TID PRN Chen Padron MD bisacodyl (DULCOLAX) suppository 10 mg 10 mg Rectal Daily PRN Chen Padron MD busPIRone (BUSPAR) tablet 5 mg 5 mg Oral TID Chen Padron MD calcium carbonate (TUMS) chewable tablet 1,000 mg 1,000 mg Oral Q4H PRN Chen Padron MD docusate sodium (COLACE) capsule 100 mg 100 mg Oral BID PRN Chen Padron MD enoxaparin (LOVENOX) 60 mg/0.6 mL injection 36 mg 1 mg/kg Subcutaneous 2 times per day Ranjan Mondragon MD ferrous sulfate tablet 325 mg 325 mg Oral BID WC Chen Padron MD guaiFENesin (ROBITUSSIN) 100 mg/5 mL liquid 200 mg 200 mg Oral Q4H PRN Chen Padron MD ipratropium (ATROVENT) 500 mcg/2.5 mL nebulizer solution 500 mcg 500 mcg Nebulization RT Q8H Sarah Maynard MD [START ON 06/10/2017] lisinopril (PRINIVIL,ZESTRIL) tablet 40 mg 40 mg Oral Daily Fatimah Padron MD melatonin tablet 1.5 mg 1.5 mg Oral Nightly PRN Chen Padron MD metoprolol tartrate (LOPRESSOR) tablet 25 mg 25 mg Oral BID Chen Padron MD ondansetron (ZOFRAN) injection 4 mg 4 mg Intravenous Q6H PRN Chen Padron MD [START ON 06/10/2017] pantoprazole (PROTONIX) DR tablet 40 mg 40 mg Oral QAM AC Chen Padron MD polyethylene glycol (MIRALAX) powder 17 g 17 g Oral Daily PRN Chen Padron MD senna (SENOKOT) tablet 8.6 mg 8.6 mg Oral BID PRN Chen Padron MD Family History: No family history on file. Social History: Social History Social History Marital status: Spouse name: N/A Number of children: N/A Years of education: N/A Occupational History Not on file. Social History Main Topics Smoking status: Not on file Smokeless tobacco: Not on file Alcohol use Not on file Drug use: Unknown Sexual activity: Not on file Other Topics Concern Not on file Social History Narrative No narrative on file Review of Systems: A 12 system, 2 point review was conducted and is negative except as not ed in the HPI. Exam: Vital Signs on Arrival: Temp: 36.8 C (98.2 F) BP: 126/76 Pulse: 149 Resp: 23 SpO2: 98 % on Most Recent Vital Signs: Temp: 36.8 C (98.2 F) BP: 117/71 Pulse: 80 Resp: 21 SpO2: 96 % on Admission Weight: Weight: 35.5 kg (78 lb 4.2 oz) BMI: Body mass index is 17.55 kg/m . Physical Examination: General: Alert, pleasant, NAD HEENT: MMM Cardiovascular: Regular s1S2, no murmur Respiratory: CTAB, no crackles or wheeze Abdomen: S NT ND BS normoactive Genitourinary: deferred Extremities: No c/c/e Skin: no rashes Neurological: nonfocal Psychiatric: appropriate Diagnostic Studies: Available Labs and Images were reviewed personally. Significant resul ts and findings are addressed below or in the Assessment and Plan. Code Status: FULL Assessment and Plan: 1. New onset afib/flutter w/ RVR--now converted to NSR and likely episodic based on her sym ptoms and probably brought on by her URI. On amio gtt and on therapeutic lovenox. Continui ng her lopressor. Her CHADS 2 score is 2, putting her at 4.2% risk of CVA per year. She is agreeable to jail anticoagulation. Echo, TSH, serial trops pending. 2. Upper respiratory infection, likely viral--CXR from OSH reportedly negative for infiltra te. Checking flu swab, PCT. Patient afebrile and w/o leukocytosis. Will provide symptom c ontrol and monitor. 3. HTN--continue lisinopril and metoprolol. 4. Depression--continue buspar FEN: Cardiac PPx: on lovenox, SCDs Code: FULL, per patient wishes Dispo: Inpatient, as will likely require >2mN hospital stay. Stepdown for close cardiac mo nitoring. Addendum Upon further review of patient's EKGs, it appears that her LBBB is relatively new (not seen on EKG from 02/2016). Her troponins are mildly elevated at 0.11, and this is likely demand in the setting of tachycardia, and will continuing to cycle. Added aspirin to meds, and she remains on lovenox. She may benefit from an ischemic workup at some point. Her flu swab is also + for influenza A. Since she has had symptoms for a week, I did not st art tamiflu because this would likely not provide any benefit at this point. Electronically signed by: Chen Padron MD, 06/09/2017 19:56 [facility] Lab data: Recent Results (from the past 24 hour(s)) Extra Green Top Tube Collection Time: 06/09/17 19:09 Result Value Ref Range Extra Green Top Tube Done Troponin I Collection Time: 06/09/17 19:10 Result Value Ref Range Troponin I 0.12 (H) <0.06 ng/mL ECG 12 lead Collection Time: 06/09/17 19:53 Result Value Ref Range INTERPRETATION TEXT Not Confirmed documented in this enc ounter Consult Notes Huma Arvziu, RD - 06/11/2017 12:32 PM PSTAssociated Order(s): IP CONSULT TO NUTRI TION SERVICES; IP CONSULT TO NUTRITION SERVICESFormatting of this note might be different fr om the original. Medical Nutrition Therapy Summary: Patient reports gradual weight loss of 20# in the last year. This represents a 8% insignificant weight loss. However, she is underweight now. She is eating about 25% of meal s. She states she is eating more at time here and usually snacks a lot at home. She is not i nterested in supplements. Education provided related to increasing protein/calorie intake an d nutrient dense foods. Nutrition Diagnosis: Underweight, Inadequate protein-energy intake related to anorexia as evidenced by intake <25% and UBW of 90 lbs. Interventions: 1. Follow up on nutrition education provided previously. 2. Encourage intake of nutrient dense foods. Nutrition Goals: 1. Meet nutritional needs by eating 75% of most meals. Monitor: 1. Nutrition parameters F/u in 2 days. O:Diet Order: For your reference, current, active order is: Diet fat and cholesterol modified; sodium restricted 3-4 gm; Effective Now @FLOW([id number]: :1) Physical Assessment: )Overall Physical Appearance: overweight, underweight (UBW 90 lbs) Labs: Recent Labs 06/10/17 0107 NA 137 K 4.2 CL 103 BUN 24* CREA 1.28 MG 2.5 Anthropometrics: Height: 142.2 cm (4' 8") Weight: 37.1 kg (81 lb 12.7 oz) Body mass index is 18.34 kg/ m. Estimated Energy and Protein Needs: Kcal needs: Energy Calorie Requirements: 4025-9133 Protein needs: Range Gm Protein (gm): 50-60 Fluid goal : Fluid Requirements: [id number] Electronically Signed by: Huma Arvizu RDN 06/11/2017 12:32 Ranjan Aguero MD - 06/09/2017 8:40 AM PST PATIENT NAME: Luz Falcon : 1935: AGE: 81 y.o. ADMISSION DATE: 06/09/2017 HOSPITAL DAY NUMBER: 1 PRIMARY CARE: Brooks Cardona MD REFERRING PROVIDER: Marbella Garrett DO CONSULTING PROVIDER: Ranjan Alejandre MD CARDIOLOGY CONSULTATION DATE OF CONSULTATION: 06/10/17 REASON FOR CONSULT: Chest pressure, atrial tachycardia, new left bundle branch block HISTORY OF PRESENT ILLNESS: Luz Falcon is a 81 y.o. female with a history of paroxysmal atrial tachycardia who p resented to her primary care physician's office this morning complaining of one-week history of cough initially nonproductive and then mildly productive of sputum. She was noted to ferrell ve a heart rate of 140 bpm and was sent to the [facility] emergency department in [facility]. The patient was given intravenous diltiazem and intermittently converted to sinus rhythm. She is complaining of mild chest pressure and was noted to have left bundl e branch block which reportedly was new. We were consulted to accept the patient on transfe r. The patient has a history of atrial tachycardia in 2013 that was treated with metoprolol and felt to be controlled. The patient has experienced episodes of palpitations occurring 3 times per week typically at night while in bed lasting less than one hour. She is not a g ood historian. She has felt some chest tightness intermittently for several months. She de nies exertional chest discomfort. She is active for her age generally walking without limit ing symptoms. She has no history of ischemic heart disease, stroke, nor syncope. She has n o complaints of leg claudication. She reports having an echocardiogram at the time of her a trial tachycardia diagnosis. She denies a history of thyroid disease. She is nondiabetic a nd a nonsmoker. She does not abuse alcohol. She has no history of gastrointestinal hemorrh age. She denies fever and chills through her interpreter deaf. She has had no recent leg swelli ng. She has had poor appetite recently her daughter states that she has had gradual weight loss of 20 pounds over the past year. Upon arrival the patient appears to be resting comfor tably lying in bed complaints of minimal chest pressure. She is currently in atrial flutter with ventricular rate of 140 bpm. PAST MEDICAL HISTORY No past medical history on file. PAST SURGICAL HISTORY No past surgical history on file. FAMILY HISTORY No family history on file. SOCIAL HISTORY Social History Social History Marital status: Spouse name: N/A Number of children: N/A Years of education: N/A Occupational History Not on file. Social History Main Topics Smoking status: Not on file Smokeless tobacco: Not on file Alcohol use Not on file Drug use: Unknown Sexual activity: Not on file Other Topics Concern Not on file Social History Narrative No narrative on file MEDICATIONS: Current Facility-Administered Medications Medication Dose Route Frequency Provider Last Rate Last Dose amiodarone (PACERONE) tablet 200 mg 200 mg Oral BID Ranjan Mondragon MD apixaban (ELIQUIS) tablet 2.5 mg 2.5 mg Oral BID Ranjan Mondragon MD aspirin EC tablet 81 mg 81 mg Oral Daily Chen Padron MD 81 mg at 06/10/17 0819 benzonatate (TESSALON) capsule 200 mg 200 mg Oral TID PRN Chen Padron MD bisacodyl (DULCOLAX) suppository 10 mg 10 mg Rectal Daily PRN Chen Padron MD busPIRone (BUSPAR) tablet 5 mg 5 mg Oral TID Chen Padron MD 5 mg at 06/10/17 0819 calcium carbonate (TUMS) chewable tablet 1,000 mg 1,000 mg Oral Q4H PRN Chen Padron MD docusate sodium (COLACE) capsule 100 mg 100 mg Oral BID PRN Chen Padron MD ferrous sulfate tablet 325 mg 325 mg Oral BID WC Chen Padron MD 325 mg at 8 0819 guaiFENesin (ROBITUSSIN) 100 mg/5 mL liquid 200 mg 200 mg Oral Q4H PRN Chen Padron MD ipratropium (ATROVENT) 500 mcg/2.5 mL nebulizer solution 500 mcg 500 mcg Nebulization RT Q8H Sarah Maynard MD 500 mcg at 06/10/17 0752 lisinopril (PRINIVIL,ZESTRIL) tablet 40 mg 40 mg Oral Daily Chen Padron MD 40 mg at 06/10/17 0819 melatonin tablet 1.5 mg 1.5 mg Oral Nightly PRN Chen Padron MD metoprolol tartrate (LOPRESSOR) tablet 25 mg 25 mg Oral BID Chen Padron MD 25 mg at 06/10/17 0819 ondansetron (ZOFRAN) injection 4 mg 4 mg Intravenous Q6H PRN Chen Padron MD pantoprazole (PROTONIX) DR tablet 40 mg 40 mg Oral QAM AC Chen Padron MD 40 mg at 06/10/17 0642 polyethylene glycol (MIRALAX) powder 17 g 17 g Oral Daily PRN Chen Padron MD senna (SENOKOT) tablet 8.6 mg 8.6 mg Oral BID PRN Chen Padron MD [facility] list of outpatient meds: No prescriptions prior to admission. ALLERGIES Allergies Allergen Reactions Acetaminophen Itching REVIEW OF SYSTEMS The items listed in the history and physical were reviewed and the following updates or melani ndments were found: PHYSICAL EXAM Vital signs: Vitals: 06/10/17 0730 BP: 130/65 Pulse: 58 Resp: 14 Temp: 36.4 C (97.5 F) Admit Weight: Weight: 35.5 kg (78 lb 4.2 oz) Current weight: Weight: 37.1 kg (81 lb 12. 7 oz) Body mass index is 18.34 kg/m. General appearance: Thin elderly woman, alert, resting comfortably Chest: Coarse breath sounds and crackles right posterior lung cormier Cardiovascular: Nondisplaced apical impulse, rapid regular rhythm, no S3, jugular venous pressure ashia l Gastrointestinal Abdomen: soft, non-tender, normal bowel sounds, no organomegaly nor masses. Mental Status/Neurological Grossly oriented. No obvious motor or cranial nerve deficits. Affect/Mood: appropriate. Extremities No edema Skin: Unremarkable LABS: Admission on 06/09/2017 Component Date Value Ref Range Status Troponin I 06/09/2017 0.12* <0.06 ng/mL Final Troponin I 06/10/2017 0.11* <0.06 ng/mL Final TSH 06/09/2017 0.94 0.45 - 5.33 uIU/mL Final Extra Blue Top Tube 06/09/2017 Done Final Extra Green Top Tube 06/09/2017 Done Final Extra Lavender Top Tube 06/09/2017 Done Final VENTRICULAR RATE EKG 06/09/2017 83 BPM Final ATRIAL RATE 06/09/2017 83 BPM Final P-R INTERVAL 06/09/2017 152 ms Final QRS DURATION 06/09/2017 130 ms Final Q-T INTERVAL 06/09/2017 430 ms Final Q-T INTERVAL (CORRECTED) 06/09/2017 505 ms Final P WAVE AXIS 06/09/2017 63 degrees Final QRS AXIS 06/09/2017 -27 degrees Final T AXIS 06/09/2017 70 degrees Final INTERPRETATION TEXT 06/09/2017 Final Value:Normal sinus rhythm Left bundle branch block Abnormal ECG No previous ECGs available Confirmed by KG LOWE, LOPEZ ([id number]) on 06/10/2017 7:07:54 AM Influenza A PCR 06/09/2017 Positive* Negative Final Influenza B PCR 06/09/2017 Negative Negative Final Procalcitonin 06/09/2017 0.14 <=0.50 ng/mL Final Comment 06/09/2017 Final < 0.50 ng/mL: Procalcitonin levels below 0.50 ng/mL on the first day of admission represents a low risk f or progression to severe sepsis and/or septic shock, however these do not exclude an infecti on, because localized infections (without systemic signs) may also be associated with such l ow levels. > 2.00 ng/mL: Procalcitonin levels above 2.00 ng/mL on the first day of admission represents a high risk for progression to severe sepsis and/or septic shock. If the procalcitonin measurement is performed shortly after the systemic infection process has started (usually less than 6 hours), these values may still be low. As various non-infec tious conditions are known to induce procalcitonin as well, procalcitonin levels between 0.5 0 ng/mL and 2.00 ng/mL should be reviewed carefully to take into account the specific clinic al background and condition(s) of the individual patient. NA 06/10/2017 137 136 - 149 mmol/L Final K 06/10/2017 4.2 3.5 - 5.1 mmol/L Final CL 06/10/2017 103 98 - 109 mmol/L Final CO2 06/10/2017 25 24 - 31 mmol/L Final ANION GAP 06/10/2017 9 3 - 16 mmol/L Final GLUCOSE 06/10/2017 107 70 - 109 mg/dL Final BUN 06/10/2017 24* 7 - 18 mg/dL Final Creatinine, Serum/Plasma 06/10/2017 1.28 0.60 - 1.30 mg/dL Final eGFR if not 06/10/2017 40* >=60 mL/min/1.73m2 Final CALCIUM 06/10/2017 8.7 8.3 - 10.5 mg/dL Final BUN/CREA 06/10/2017 18.8 Final WBC 06/10/2017 5.4 4.0 - 11.0 K/uL Final RBC 06/10/2017 3.87 3.70 - 5.20 M/uL Final Hgb 06/10/2017 11.7 11.5 - 16.0 g/dL Final Hct 06/10/2017 35.5 34.0 - 47.0 % Final MCV 06/10/2017 91.7 83.0 - 101.0 fL Final MCH 06/10/2017 30.3 28.0 - 35.0 pg Final MCHC 06/10/2017 33.0 32.0 - 36.0 g/dL Final RDW-CV 06/10/2017 12.9 <15.0 % Final Platelet Count 06/10/2017 216 140 - 440 K/uL Final MPV 06/10/2017 8.1 fL Final % Neutrophils 06/10/2017 54.6 45.0 - 82.0 % Final % Lymphocytes 06/10/2017 28.0 20.0 - 45.0 % Final % Monocytes 06/10/2017 13.1* 4.0 - 12.0 % Final % Eosinophils 06/10/2017 3.8 0.0 - 5.0 % Final % Basophils 06/10/2017 0.5 0.0 - 1.0 % Final Absolute Neutrophils 06/10/2017 3.00 1.80 - 8.50 K/uL Final Absolute Lymphocytes 06/10/2017 1.50 0.60 - 3.20 K/uL Final Absolute Monocytes 06/10/2017 0.70 0.00 - 1.00 K/uL Final Absolute Eosinophils 06/10/2017 0.20 0.00 - 0.40 K/uL Final Absolute Basophils 06/10/2017 0.00 0.00 - 0.10 K/uL Final MG 06/10/2017 2.5 1.8 - 2.5 mg/dL Final Troponin I 06/10/2017 0.08* <0.06 ng/mL Final IMAGING: Xr Chest Ap Portable Result Date: 06/09/2017 XR CHEST AP PORTABLE 06/09/2017 8:28 PM HISTORY: coarse breath sounds. COMPARISON: None. Fin dings: Extensive areas of peripheral predominant scarring/fibrosis are seen throughout both lungs. Mildly increased focal prominence of the interstitial markings and slight blunting of the costophrenic sulci is also thought to be most compatible with fibrosis no evidence of p neumothorax or pleural effusion. Heart is normal in size. Scattered degenerative changes are seen throughout the thoracic spine and right shoulder. 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 IMPRESSION - Peripheral predominant areas of interstitial thickening and scarring is thought to most likely represent chronic interstitial fibrosis. Blunting of the costophrenic angles is also most likely compatible with above-mentioned UIP pattern of fibro sis with superimposed infectious etiology unable to be excluded. Dictated and Signed by: Jaspreet Norman MD Electronically signed: 06/09/2017 8:59 PM EC06/09/17, 15:33, normal sinus rhythm 97 bpm, left bundle branch block, when compared with prior ECG dated 03/11/16, left bundle branch block is new DIAGNOSES AND ASSESSMENTS: 1. 81-year-old woman with a history of paroxysmal atrial tachycardia, found to be in atrial flutter with rapid ventricular rate in the setting of a one-week history of cough. The pat ient has mild chest pressure associated with her atrial flutter and rapid ventricular rates. Her symptoms are not suggestive of unstable coronary syndrome. Serial chronic enzymes razia l be drawn. Echocardiography will be ordered. The patient will be treated with intravenous amiodarone infusion and started on low molecular weight heparin for thromboembolism prophyl axis. The patient will be admitted to the hospitalist service for further workup of her res piratory complaints. PLAN OR RECOMMENDATIONS: IV amiodarone infusion TSH level Lovenox for anticoagulation Serial troponin levels I appreciate the opportunity of participating in the care of this patient. Ranjan Alejandre MD, 06/10/2017 8:40 documented in this enc ounter Miscellaneous Notes Plan of Care - Mamie Castillo RN - 06/11/2017 1:45 PM PSTDischarge instructions given t o patient and daughters present at bedside. Pt adequate for discharge. IV sites discontinued no s/sx of infection noted at sites. All questions answered. lan of Care - Edwige Landon RRT - 06/11/2017 11: 33 AM PSTProblem: Patient Care Overview (Adult) Goal: Care Team Goals & Evaluation PROBLEM-RELATED GOALS: 1. Luz will be in a normal sinus rhythm by 06-10-17. 2. Luz will be free from falls during hospitalization. 3. Luz will be free from skin breakdown during hospitalization. STRATEGY TO ACHIEVE GOALS: - Monitor heart rhythm and administer medications as ordered - Monitor fall risk and use assistive devices. - Monitor skin for breakdown and encourage frequent position changes. RESTRAINT-RELATED GOALS: STRATEGIES TO ACHIEVE RESTRAINT GOALS: Goal Evaluation: Pt is on room air with a SpO2 of 98 % and a heart rate of 60. Breath sounds are clear wit h crackles posterior bases bilateral Pt has a strong congested cough. Pt has a unlabored, pattern regular, depth regular. lan of Care - Barrett Ibarra RRT - 06/11/2017 5:04 AM PSTProblem: Patient Care Overview (Adult) Goal: Care Team Goals & Evaluation PROBLEM-RELATED GOALS: 1. Luz will be in a normal sinus rhythm by 18. 2. Luz will be free from falls during hospitalization. 3. Luz will be free from skin breakdown during hospitalization. STRATEGY TO ACHIEVE GOALS: - Monitor heart rhythm and administer medications as ordered - Monitor fall risk and use assistive devices. - Monitor skin for breakdown and encourage frequent position changes. RESTRAINT-RELATED GOALS: STRATEGIES TO ACHIEVE RESTRAINT GOALS: Outcome: Improving Goal Evaluation: Luz SpO2 93 % on room air, One scheduled tx given. Lung sound s appear vesicular. RT will continue to monitor and treat as indicated. lan of Care - Ambika Rodriguez RN - 06/11/2017 4:04 AM PSTProblem: Patient Care Overview (Adult) Goal: Care Team Goals & Evaluation PROBLEM-RELATED GOALS: 1. Luz will be in a normal sinus rhythm by 18. 2. Luz will be free from falls during hospitalization. 3. Luz will be free from skin breakdown during hospitalization. STRATEGY TO ACHIEVE GOALS: - Monitor heart rhythm and administer medications as ordered - Monitor fall risk and use assistive devices. - Monitor skin for breakdown and encourage frequent position changes. RESTRAINT-RELATED GOALS: STRATEGIES TO ACHIEVE RESTRAINT GOALS: Goal Evaluation: Patient is alert and oriented, ambulatory with assistance from daughter. Denied pain/disco mfort. On telemetry. VS stable. lan of James - Silvana Mcguire RN - 06/10/2017 5:17 PM PSTProblem: Discharge Planning Goal: Patient will be discharged in a safe manner Outcome: Improving This CM met with patient and her daughter, Jeana, to discuss discharge plans. Patient was transferred here by ground ambulance from [facility] for continuity of care f or her NSTEMI. Patient lives with her daughter in [place] and is basically independent with all her need [place] works during the day but Luz is fine, per Jeana. She uses a cane at home and also has a 4WW and 2WW but they are too big for her so she does not use them. Patient just saw her PCP, Brooks Cardona yesterday and he sent her to the ED. Patient actually lives downstairs but it has rails and she is very careful and usually her daughter helps her. 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 Her preferred pharmacy is [facility] in [place]. Preference form was signed for having HH services f/u at discharge and daughter thought thi s would be a good idea. Signed form placed in ghost chart. Faxed the HH referral to [facility]. Fax transmission plu s referral placed in ghost chart. Sticky note left for MD requesting HH referral order at discharge. Dispo plan: Return home to [place] with daughter transporting, with HH RN f/u. CM to follow. Electronically signed by: Silvana Mcguire RN 06/10/2017 17:17 lan of Care - Melvi Conner RRT - 06/10/2017 5:01 PM PSTProblem: Patient Care Overview (Adult) Goal: Care Team Goals & Evaluation PROBLEM-RELATED GOALS: 1. Luz will be in a normal sinus rhythm by 06-10-17. 2. Luz will be free from falls during hospitalization. 3. Luz will be free from skin breakdown during hospitalization. STRATEGY TO ACHIEVE GOALS: - Monitor heart rhythm and administer medications as ordered - Monitor fall risk and use assistive devices. - Monitor skin for breakdown and encourage frequent position changes. RESTRAINT-RELATED GOALS: STRATEGIES TO ACHIEVE RESTRAINT GOALS: Outcome: Improving Goal Evaluation: BS clear, SpO2 97% on RA, Atrovent nebs remain Q8, no other interventions indicated at this time lan of Care - Marciano Morris RN - 06/10/2017 3:42 AM PSTProblem: Patient Care Overview (Adult) Goal: Care Team Goals & Evaluation PROBLEM-RELATED GOALS: 1. Luz will be in a normal sinus rhythm by 06-10-17. 2. Luz will be free from falls during hospitalization. 3. Luz will be free from skin breakdown during hospitalization. STRATEGY TO ACHIEVE GOALS: - Monitor heart rhythm and administer medications as ordered - Monitor fall risk and use assistive devices. - Monitor skin for breakdown and encourage frequent position changes. RESTRAINT-RELATED GOALS: STRATEGIES TO ACHIEVE RESTRAINT GOALS: Outcome: Improving Goal Evaluation: Patient converted to Sinus Rhythm with Amiodarone bolus. Droplet precautions began for in fluenza A. Patient up to restroom with standby assist. Moving in bed independently. lan of Care - Aleksandar Saab, Bozena Rizvi RN - 06/09/2017 7:06 PM PSTProblem: Patient Care Overview (Adult) Goal: Care Team Goals & Evaluation PROBLEM-RELATED GOALS: STRATEGY TO ACHIEVE GOALS: RESTRAINT-RELATED GOALS: STRATEGIES TO ACHIEVE RESTRAINT GOALS: Outcome: Unchanged Goal Evaluation: Patient alert and oriented X4, c/o chest tightness 5/10, appears comfortable. LS diminishe d in the bases. On room air, denies feeling SOB. Afebrile. SVT vs A.Flutter HR 140-150's. Ne uro's intact. Daughter Jeana at bedside, she will be spending the night with the patient for language barriers. Dr. Alejandre spoke with PT and daughter. Call light within reach. documented in this encounter Plan of Treatment Not on filedocumented as of this encounter Procedures + +--------+ + + + | Procedure Name | Priori | Date/Time | Associated Diagnosis | Comments | | | ty | | | | + +--------+ + + + | TROPONIN I | Routin | 06/10/2017 | | Results for this | | | e | 1:15 PM | | procedure are in the | | | | PST | | results section. | + +--------+ + + + | ECHO COMPLETE | Routin | 06/10/2017 | | Results for this | | | e | 10:25 AM | | procedure are in the | | | | PST | | results section. | + +--------+ + + + | EXTRA LAVENDER TOP | Routin | 06/10/2017 | | Results for this | | TUBE | e | 6:57 AM | | procedure are in the | | | | PST | | results section. | + +--------+ + + + | TROPONIN I | Routin | 06/10/2017 | | Results for this | | | e | 6:52 AM | | procedure are in the | | | | PST | | results section. | + +--------+ + + + | TROPONIN I | Routin | 06/10/2017 | | Results for this | | | e | 1:07 AM | | procedure are in the | | | | PST | | results section. | + +--------+ + + + | CBC WITH | Routin | 06/10/2017 | | Results for this | | DIFFERENTIAL | e | 1:07 AM | | procedure are in the | | | | PST | | results section. | + +--------+ + + + | MAGNESIUM | Routin | 06/10/2017 | | Results for this | | | e | 1:07 AM | | procedure are in the | | | | PST | | results section. | + +--------+ + + + | BASIC METABOLIC | Routin | 06/10/2017 | | Results for this | | PANEL | e | 1:07 AM | | procedure are in the | | | | PST | | results section. | + +--------+ + + + | XR CHEST AP PORTABLE | STAT | 06/09/2017 | | Results for this | | | | 8:28 PM | | procedure are in the | | | | PST | | results section. | + +--------+ + + + | INFLUENZA A AND B | Routin | 06/09/2017 | | Results for this | | RNA, NAAT | e | 8:00 PM | | procedure are in the | | | | PST | | results section. | + +--------+ + + + | ECG 12 LEAD | Routin | 06/09/2017 | | Results for this | | | e | 7:53 PM | | procedure are in the | | | | PST | | results section. | + +--------+ + + + | TROPONIN I | Routin | 06/09/2017 | | Results for this | | | e | 7:10 PM | | procedure are in the | | | | PST | | results section. | + +--------+ + + + | TSH | Routin | 06/09/2017 | | Results for this | | | e | 7:10 PM | | procedure are in the | | | | PST | | results section. | + +--------+ + + + | PROCALCITONIN, SERUM | Add-On | 06/09/2017 | | Results for this | | | | 7:09 PM | | procedure are in the | | | | PST | | results section. | + +--------+ + + + | EXTRA LAVENDER TOP | Routin | 06/09/2017 | | Results for this | | TUBE | e | 7:09 PM | | procedure are in the | | | | PST | | results section. | + +--------+ + + + | EXTRA GREEN TOP TUBE | Routin | 06/09/2017 | | Results for this | | | e | 7:09 PM | | procedure are in the | | | | PST | | results section. | + +--------+ + + + | EXTRA BLUE TOP TUBE | Routin | 06/09/2017 | | Results for this | | | e | 7:09 PM | | procedure are in the | | | | PST | | results section. | + +--------+ + + + | CULTURE, MRSA | Routin | 06/09/2017 | | Results for this | | | e | 6:31 PM | | procedure are in the | | | | PST | | results section. | + +--------+ + + + | LABS - EXTERNAL SCAN | | 06/09/2017 | | Results for this | | | | 12:00 AM | | procedure are in the | | | | PST | | results section. | + +--------+ + + + | ECG - EXTERNAL SCAN | | 06/09/2017 | | Results for this | | | | 12:00 AM | | procedure are in the | | | | PST | | results section. | + +--------+ + + + documented in this encounter Results Troponin I (06/10/2017 1:15 PM PST) + + + + + + | Component | Value | Ref Range | Performed | Pathologist | | | | | At | Signature | + + + + + + | Troponin I | 0.07 (H)Comment: | <0.06 ng/mL | [facility] | | | | Reference | | [facility] | | | | Ranges:0.00-0.06 = | | MEDICAL | | | | NORMAL>0.06 = | | CENTER - | | | | SUSPICIOUS FOR | | LABORATORY | | | | MYOCARDIAL DAMAGE NOTE: | | | | | | Values greater than 0.50 | | | | | | ng/mL have been shown | | | | | | to be strongly | | | | | | associated with acute | | | | | | myocardial infarction. | | | | | | The [employer] | | | | | | Cardiology (ACC) | | | | | | recommends a decision | | | | | | limit of 0.06 ng/mL for | | | | | | this assay. Results | | | | | | greater than 0.06 can | | | | | | reflect a pre-infarct | | | | | | acute coronary syndrome, | | | | | | but can also reflect | | | | | | myocardial necrosis or | | | | | | injury that is not due | | | | | | to coronary artery | | | | | | disease. Some of these | | | | | | causes are sepsis, | | | | | | hypocolemia, atrial | | | | | | fibrillation, heart | | | | | | failure, pulmonary | | | | | | embolism, myocarditis, | | | | | | myocardial contusion, | | | | | | and renal failure. The | | | | | | diagnosis of myocardial | | | | | | infarction should be | | | | | | based on a combination | | | | | | of the patient's | | | | | | clinical presentation | | | | | | and the clinical | | | | | | laboratory test results | | | | | | (especially serial | | | | | | troponin levels). | | | | + + + + + + + + | Specimen | + + | Blood | + + + + + + + | Performing | Address | City/State/Zipcode | Phone Number | | Organization | | | | + + + + + | [facility] | [address] | [place] | [phone] | | [facility] | | [id number] | | | - LABORATORY | | | | + + + + + ECHO Complete (06/10/2017 10:25 AM PST) + +-------+ + + + | Component | Value | Ref Range | Performed | Pathologist | | | | | At | Signature | + +-------+ + + + | LVEF-TTE | 56 | | [facility] | | | TRANSTHORAC | | | | | | IC ECHO | | | | | + +-------+ + + + + + | Specimen | + + | | + + + +-- + | Narrative | P erformed At | + +-- + | Transthoracic | [facility] | | Echocardiography Report (TTE) Demographics Patient Name MI | | | LUZ Room Number 459 D Patient | | | [id number] Date of Study 06/10/2017 Number | | | Visit Number [id number] | | | Referring Physician RANJAN ALEJANDRE MD, Number | | | [facility] Date of | | | 1935 Sales And Marketing Specialist Cj Lorenzo Age | | | 81 year(s) Interpreting DARI GALAN | | | ANGEL Woods Superintendent | | | ANGEL CHAPIN MD Gender Female 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 Procedure | | | dateDate: 06/10/2017Start: 10:03 AM Technical Quality: Adequate | | | visualizationStudy Location: ICUIndications: Atrial Flutter | | | 427.32/I48.92.Patient Status: RoutineHeight: 56 inchesWeight: 77.82 | | | poundsBSA: 1.19 m^2BMI: 17.45 kg/m^2Rhythm: Sinus bradycardiaHR: 54 | | | bpm ConclusionsSummaryLeft ventricle is normal in size and function. | | | Ejection fraction isestimated at 56%.There is grade 1 LV diastolic | | | dysfunction.Mitral valve is mildly thickened with evidence of chordal | | | calcificationwithout significant insufficiency or stenosis.Aortic | | | valve is a sclerotic probable trileaflet valve with good | | | systolicexcursion.Tricuspid valve is normal with trace insufficiency | | | and peak velocityconsistent with normal pulmonary pressures. | | | Signature | | | | | | PM | | | -------- FindingsMitral ValveMitral valve is mildly thickened with | | | evidence of chordal calcificationwithout significant insufficiency or | | | stenosis.Aortic ValveAortic valve is a sclerotic probable trileaflet | | | valve with good systolicexcursion.Tricuspid ValveTricuspid valve is | | | normal with trace insufficiency and peak velocityconsistent with | | | normal pulmonary pressures.Pulmonic ValveStructurally normal pulmonic | | | valve without significant stenosis orregurgitation.Left AtriumNormal | | | size left atrium.Left VentricleLeft ventricle is normal in size and | | | function. Ejection fraction isestimated at 56%.There is grade 1 LV | | | diastolic dysfunction.Right AtriumNormal right atrial size.Right | | | VentricleNormal right ventricular size.Right ventricle global systolic | | | function is normal.TAPSE = 2.4 cm.Pericardial EffusionNo evidence of | | | pericardial effusion.Pleural EffusionNo evidence of pleural | | | effusion.MiscellaneousNormal aortic root.The IVC appears normal | | | size.IVC respiratory change in dimension > 50%. Valves Mitral Valve | | | Peak E-Wave: 0.51 m/s Peak A-Wave: 0.81 m/s Tissue Doppler Septal e' | | | Velocity: 0.05 m/s Aortic Valve Tricuspid Valve TR Velocity: 2 m/s | | | LVOT Peak Velocity: 0.68 m/s Structures Left Atrium LA A/P | | | Dimension: 3.07 cm LA Area: 11.64 cm^2 | | | LA Vol/BSA Index: 22 mL/m^2 LA Volume: | | | 26.5 ml | | | EF Gdoesyrrz15% Left Ventricle Diastolic Dimension: 4.47 cm | | | Septum Diastolic: 0.79 cm PW Diastolic: 0.7 cm EF Calculated: 56% | | | Miscellaneous Aorta Aortic Root: 3.36 cm | | | | | | Electronically signed by ANGEL CHAPIN MD(Interpreting physician) on | | | 06/10/2017 04:47 PM | | | | | | | | |Findings | | |Mitral Valve | | |Mitral valve is mildly thickened with evidence of chordal calcification | | |without significant insufficiency or stenosis. | | |Aortic Valve | | |Aortic valve is a sclerotic probable trileaflet valve with good systolic | | |excursion. | | |Tricuspid Valve | | |Tricuspid valve is normal with trace insufficiency and peak velocity | | |consistent with normal pulmonary pressures. | | |Pulmonic Valve | | |Structurally normal pulmonic valve without significant stenosis or | | |regurgitation. | | |Left Atrium | | |Normal size left atrium. | | |Left Ventricle | | |Left ventricle is normal in size and function. Ejection fraction is | | |estimated at 56%. | | |There is grade 1 LV diastolic dysfunction. | | |Right Atrium | | |Normal right atrial size. | | |Right Ventricle | | |Normal right ventricular size. | | |Right ventricle global systolic function is normal. | | |TAPSE = 2.4 cm. | | |Pericardial Effusion | | |No evidence of pericardial effusion. | | |Pleural Effusion | | |No evidence of pleural effusion. | | |Miscellaneous | | |Normal aortic root. | | |The IVC appears normal size. | | |IVC respiratory change in dimension > 50%. | | | | | |Valves | | | | | | Mitral Valve | | | | | | Peak E-Wave: 0.51 m/s | | | Peak A-Wave: 0.81 m/s | | | | | | Tissue Doppler | | | | | | Septal e' Velocity: 0.05 m/s | | | | | | Aortic Valve | | | | | | Tricuspid Valve | | | | | | TR Velocity: 2 m/s | | | | | | LVOT | | | | | | Peak Velocity: 0.68 m/s | | | | | |Structures | | | | | | Left Atrium | | | | | | LA A/P Dimension: 3.07 cm LA Area: 11.64 cm^2 | | | LA Vol/BSA Index: 22 mL/m^2 LA Volume: 26.5 ml | | | EF Iemtmdxlx59% | | | | | | Left Ventricle | | | | | | Diastolic Dimension: 4.47 cm | | | Septum Diastolic: 0.79 cm | | | PW Diastolic: 0.7 cm | | | EF Calculated: 56% | | | | | | Miscellaneous | | | | | | Aorta | | | | | | Aortic Root: 3.36 cm | | | | | + +-- + + + | Procedure Note | + + | Larry Partida Results In - 06/10/2017 4:47 PM [facility] Transthoracic Echocardiography Report | | (TTE) Demographics Patient Name MI SELF Room Number 459 | | D Patient [id number] Date of Study 06/10/2017 Number Visit Number | | [id number] Referring Physician RANJAN ALEJANDRE MD, | | Number [facility] Date of 1935 | | Sales And Marketing Specialist Cj Lorenzo Age 81 year(s) Interpreting | | DARI ORTIZ Woods Superintendent ANGEL CHAPIN, | | Gender Female Nurse Stress | | TechnicianProcedureType of Study TTE procedure: ECHO Complete.Procedure dateDate: | | 06/10/2017Start: 10:03 AMTechnical Quality: Adequate visualizationStudy Location: | | ICUIndications: Atrial Flutter 427.32/I48.92.Patient Status: RoutineHeight: 56 | | inchesWeight: 77.82 poundsBSA: 1.19 m^2BMI: 17.45 kg/m^2Rhythm: Sinus bradycardiaHR: 54 | | bpmConclusionsSummaryLeft ventricle is normal in size and function. Ejection fraction | | isestimated at 56%.There is grade 1 LV diastolic dysfunction.Mitral valve is mildly | | thickened with evidence of chordal calcificationwithout significant insufficiency or | | stenosis.Aortic valve is a sclerotic probable trileaflet valve with good | | systolicexcursion.Tricuspid valve is normal with trace insufficiency and peak | | velocityconsistent with normal pulmonary | | pressures.Signature | | ------- | | 04:47 | | PM FindingsMi | | tral ValveMitral valve is mildly thickened with evidence of chordal calcificationwithout | | significant insufficiency or stenosis.Aortic ValveAortic valve is a sclerotic probable | | trileaflet valve with good systolicexcursion.Tricuspid ValveTricuspid valve is normal | | with trace insufficiency and peak velocityconsistent with normal pulmonary | | pressures.Pulmonic ValveStructurally normal pulmonic valve without significant stenosis | | orregurgitation.Left AtriumNormal size left atrium.Left VentricleLeft ventricle is | | normal in size and function. Ejection fraction isestimated at 56%.There is grade 1 LV | | diastolic dysfunction.Right AtriumNormal right atrial size.Right VentricleNormal right | | ventricular size.Right ventricle global systolic function is normal.TAPSE = 2.4 | | cm.Pericardial EffusionNo evidence of pericardial effusion.Pleural EffusionNo evidence | | of pleural effusion.MiscellaneousNormal aortic root.The IVC appears normal size.IVC | | respiratory change in dimension > 50%.Valves Mitral Valve Peak E-Wave: 0.51 m/s Peak | | A-Wave: 0.81 m/s Tissue Doppler Septal e' Velocity: 0.05 m/s Aortic Valve Tricuspid | | Valve TR Velocity: 2 m/s LVOT Peak Velocity: 0.68 m/sStructures Left Atrium LA A/P | | Dimension: 3.07 cm LA Area: 11.64 cm^2 LA Vol/BSA Index: 22 mL/m^2 | | LA Volume: 26.5 ml EF | | Fpcyxovha99% Left Ventricle Diastolic Dimension: 4.47 cm Septum Diastolic: 0.79 cm PW | | Diastolic: 0.7 cm EF Calculated: 56% Miscellaneous Aorta Aortic Root: 3.36 cm | |Summary | |Left ventricle is normal in size and function. Ejection fraction is | |estimated at 56%. | |There is grade 1 LV diastolic dysfunction. | |Mitral valve is mildly thickened with evidence of chordal calcification | |without significant insufficiency or stenosis. | |Aortic valve is a sclerotic probable trileaflet valve with good systolic | |excursion. | |Tricuspid valve is normal with trace insufficiency and peak velocity | |consistent with normal pulmonary pressures. | | | |Signature | | | | Electronically signed by ANGEL CHAPIN MD(Interpreting physician) on | | 06/10/2017 04:47 PM | | | | | |Findings | |Mitral Valve | |Mitral valve is mildly thickened with evidence of chordal calcification | |without significant insufficiency or stenosis. | |Aortic Valve | |Aortic valve is a sclerotic probable trileaflet valve with good systolic | |excursion. | |Tricuspid Valve | |Tricuspid valve is normal with trace insufficiency and peak velocity | |consistent with normal pulmonary pressures. | |Pulmonic Valve | |Structurally normal pulmonic valve without significant stenosis or | |regurgitation. | |Left Atrium | |Normal size left atrium. | |Left Ventricle | |Left ventricle is normal in size and function. Ejection fraction is | |estimated at 56%. | |There is grade 1 LV diastolic dysfunction. | |Right Atrium | |Normal right atrial size. | |Right Ventricle | |Normal right ventricular size. | |Right ventricle global systolic function is normal. | |TAPSE = 2.4 cm. | |Pericardial Effusion | |No evidence of pericardial effusion. | |Pleural Effusion | |No evidence of pleural effusion. | |Miscellaneous | |Normal aortic root. | |The IVC appears normal size. | |IVC respiratory change in dimension > 50%. | | | |Valves | | | | Mitral Valve | | | | Peak E-Wave: 0.51 m/s | | Peak A-Wave: 0.81 m/s | | | | Tissue Doppler | | | | Septal e' Velocity: 0.05 m/s | | | | Aortic Valve | | | | Tricuspid Valve | | | | TR Velocity: 2 m/s | | | | LVOT | | | | Peak Velocity: 0.68 m/s | | | |Structures | | | | Left Atrium | | | | LA A/P Dimension: 3.07 cm LA Area: 11.64 cm^2 | | LA Vol/BSA Index: 22 mL/m^2 LA Volume: 26.5 ml | | EF Hrwyskmzs75% | | | | Left Ventricle | | | | Diastolic Dimension: 4.47 cm | | Septum Diastolic: 0.79 cm | | PW Diastolic: 0.7 cm | | EF Calculated: 56% | | | | Miscellaneous | | | | Aorta | | | | Aortic Root: 3.36 cm | + + + +---------+ + + | Performing | Address | City/State/Zipcode | Phone Number | | Organization | | | | + +---------+ + + | [facility] | | | | + +---------+ + + Extra Lavender Top Tube (06/10/2017 6:57 AM PST) + +-------+ + + + | Component | Value | Ref Range | Performed | Pathologist | | | | | At | Signature | + +-------+ + + + | Extra | Done | | [facility] | | | Lavender | | | [facility] | | | Top Tube | | | MEDICAL | | | | | | CENTER - | | | | | | LABORATORY | | + +-------+ + + + + + | Specimen | + + | Blood | + + + + + + + | Performing | Address | City/State/Zipcode | Phone Number | | Organization | | | | + + + + + | [facility] | [address] | [place] | [phone] | | [facility] | | [address] | | | - LABORATORY | | | | + + + + + Troponin I (06/10/2017 6:52 AM PST) + + + + + + | Component | Value | Ref Range | Performed | Pathologist | | | | | At | Signature | + + + + + + | Troponin I | 0.08 (H)Comment: | <0.06 ng/mL | [facility] | | | | Reference | | [facility] | | | | Ranges:0.00-0.06 = | | MEDICAL | | | | NORMAL>0.06 = | | CENTER - | | | | SUSPICIOUS FOR | | LABORATORY | | | | MYOCARDIAL DAMAGE NOTE: | | | | | | Values greater than 0.50 | | | | | | ng/mL have been shown | | | | | | to be strongly | | | | | | associated with acute | | | | | | myocardial infarction. | | | | | | The [employer] | | | | | | Cardiology (ACC) | | | | | | recommends a decision | | | | | | limit of 0.06 ng/mL for | | | | | | this assay. Results | | | | | | greater than 0.06 can | | | | | | reflect a pre-infarct | | | | | | acute coronary syndrome, | | | | | | but can also reflect | | | | | | myocardial necrosis or | | | | | | injury that is not due | | | | | | to coronary artery | | | | | | disease. Some of these | | | | | | causes are sepsis, | | | | | | hypocolemia, atrial | | | | | | fibrillation, heart | | | | | | failure, pulmonary | | | | | | embolism, myocarditis, | | | | | | myocardial contusion, | | | | | | and renal failure. The | | | | | | diagnosis of myocardial | | | | | | infarction should be | | | | | | based on a combination | | | | | | of the patient's | | | | | | clinical presentation | | | | | | and the clinical | | | | | | laboratory test results | | | | | | (especially serial | | | | | | troponin levels). | | | | + + + + + + + + | Specimen | + + | Blood | + + + + + + + | Performing | Address | City/State/Zipcode | Phone Number | | Organization | | | | + + + + + | [facility] | [address] | [place] | [phone] | | [facility] | | [address] | | | - LABORATORY | | | | + + + + + Magnesium (06/10/2017 1:07 AM PST) + +-------+ + + + | Component | Value | Ref Range | Performed | Pathologist | | | | | At | Signature | + +-------+ + + + | Magnesium | 2.5 | 1.8 - 2.5 mg/dL | [facility] | | | | | | [facility] | | | | | [facility]ICAL | | | | | | CENTER - | | | | | | LABORATORY | | + +-------+ + + + + + | Specimen | + + | Blood | + + + + + + + | Performing | Address | City/State/Zipcode | Phone Number | | Organization | | | | + + + + + | [facility] | [address] | [place] | [phone] | | [facility] | | [address] | | | - LABORATORY | | | | + + + + + CBC with Differential (06/10/2017 1:07 AM PST) + + + + + + | Component | Value | Ref Range | Performed | Pathologist | | | | | At | Signature | + + + + + + | White Blood | 5.4 | 4.0 - 11.0 K/uL | [facility] | | | Cells | | | [facility] | | | | | | MEDICAL | | | | | | CENTER - | | | | | | LABORATORY | | + + + + + + | Red Blood | 3.87 | 3.70 - 5.20 | [facility] | | | Cells | | M/uL | [facility] | | | | | | MEDICAL | | | | | | CENTER - | | | | | | LABORATORY | | + + + + + + | Hemoglobin | 11.7 | 11.5 - 16.0 | [facility] | | | | | g/dL | [facility] | | | | | | MEDICAL | | | | | | CENTER - | | | | | | LABORATORY | | + + + + + + | Hematocrit | 35.5 | 34.0 - 47.0 % | [facility] | | | | | | [facility] | | | | | | MEDICAL | | | | | | CENTER - | | | | | | LABORATORY | | + + + + + + | MCV | 91.7 | 83.0 - 101.0 fL | [facility] | | | | | | [facility] | | | | | | MEDICAL | | | | | | CENTER - | | | | | | LABORATORY | | + + + + + + | MCH | 30.3 | 28.0 - 35.0 pg | [facility] | | | | | | [facility] | | | | | | MEDICAL | | | | | | CENTER - | | | | | | LABORATORY | | + + + + + + | MCHC | 33.0 | 32.0 - 36.0 | [facility] | | | | | g/dL | [facility] | | | | | | MEDICAL | | | | | | CENTER - | | | | | | LABORATORY | | + + + + + + | RDW-CV | 12.9 | <15.0 % | [facility] | | | | | | [facility] | | | | | | MEDICAL | | | | | | CENTER - | | | | | | LABORATORY | | + + + + + + | Platelet | 216 | 140 - 440 K/uL | [facility] | | | Count | | | [facility] | | | | | | MEDICAL | | | | | | CENTER - | | | | | | LABORATORY | | + + + + + + | MPV | 8.1 | fL | [facility] | | | | | | [facility] | | | | | | MEDICAL | | | | | | CENTER - | | | | | | LABORATORY | | + + + + + + | % | 54.6 | 45.0 - 82.0 % | [facility] | | | Neutrophils | | | [facility] | | | | | | MEDICAL | | | | | | CENTER - | | | | | | LABORATORY | | + + + + + + | % | 28.0 | 20.0 - 45.0 % | [facility] | | | Lymphocytes | | | [facility] | | | | | | MEDICAL | | | | | | CENTER - | | | | | | LABORATORY | | + + + + + + | % Monocytes | 13.1 (H) | 4.0 - 12.0 % | [facility] | | | | | | [facility] | | | | | | MEDICAL | | | | | | CENTER - | | | | | | LABORATORY | | + + + + + + | % | 3.8 | 0.0 - 5.0 % | [facility] | | | Eosinophils | | | [facility] | | | | | | MEDICAL | | | | | | CENTER - | | | | | | LABORATORY | | + + + + + + | % Basophils | 0.5 | 0.0 - 1.0 % | [facility] | | | | | | [facility] | | | | | | MEDICAL | | | | | | CENTER - | | | | | | LABORATORY | | + + + + + + | Absolute | 3.00 | 1.80 - 8.50 | [facility] | | | Neutrophils | | K/uL | [facility] | | | | | | MEDICAL | | | | | | CENTER - | | | | | | LABORATORY | | + + + + + + | Absolute | 1.50 | 0.60 - 3.20 | [facility] | | | Lymphocytes | | K/uL | [facility] | | | | | | MEDICAL | | | | | | CENTER - | | | | | | LABORATORY | | + + + + + + | Absolute | 0.70 | 0.00 - 1.00 | [facility] | | | Monocytes | | K/uL | [facility] | | | | | | MEDICAL | | | | | | CENTER - | | | | | | LABORATORY | | + + + + + + | Absolute | 0.20 | 0.00 - 0.40 | [facility] | | | Eosinophils | | K/uL | [facility] | | | | | | MEDICAL | | | | | | CENTER - | | | | | | LABORATORY | | + + + + + + | Absolute | 0.00 | 0.00 - 0.10 | [facility] | | | Basophils | | K/uL | [facility] | | | | | | MEDICAL | | | | | | CENTER - | | | | | | LABORATORY | | + + + + + + + + | Specimen | + + | Blood | + + + + + + + | Performing | Address | City/State/Zipcode | Phone Number | | Organization | | | | + + + + + | [facility] | [address] | [place] | [phone] | | [facility] | | [address] | | | - LABORATORY | | | | + + + + + Basic Metabolic Panel (06/10/2017 1:07 AM PST) + + + + + + | Component | Value | Ref Range | Performed | Pathologist | | | | | At | Signature | + + + + + + | Na | 137 | 136 - 149 | [facility] | | | | | mmol/L | [facility] | | | | | | MEDICAL | | | | | | CENTER - | | | | | | LABORATORY | | + + + + + + | K | 4.2 | 3.5 - 5.1 | [facility] | | | | | mmol/L | [facility] | | | | | | MEDICAL | | | | | | CENTER - | | | | | | LABORATORY | | + + + + + + | Cl | 103 | 98 - 109 mmol/L | [facility] | | | | | | [facility] | | | | | | MEDICAL | | | | | | CENTER - | | | | | | LABORATORY | | + + + + + + | CO2 | 25 | 24 - 31 mmol/L | [facility] | | | | | | [facility] | | | | | | MEDICAL | | | | | | CENTER - | | | | | | LABORATORY | | + + + + + + | Anion Gap | 9 | 3 - 16 mmol/L | [facility] | | | | | | [facility] | | | | | | MEDICAL | | | | | | CENTER - | | | | | | LABORATORY | | + + + + + + | Glucose | 107 | 70 - 109 mg/dL | [facility] | | | | | | [facility] | | | | | | MEDICAL | | | | | | CENTER - | | | | | | LABORATORY | | + + + + + + | BUN | 24 (H) | 7 - 18 mg/dL | [facility] | | | | | | [facility] | | | | | | MEDICAL | | | | | | CENTER - | | | | | | LABORATORY | | + + + + + + | Creatinine | 1.28 | 0.60 - 1.30 | [facility] | | | | | mg/dL | [facility] | | | | | | MEDICAL | | | | | | CENTER - | | | | | | LABORATORY | | + + + + + + | eGFR if not | 40 (L)Comment: | >=60 | [facility] | | | | GLOMERULAR FILTRATION | mL/min/1.73m2 | [facility] | | | [place] | RATE,ESTIMATED | | MEDICAL | | | | mL/min/1.36l1Dyvp than | | CENTER - | | | | 60 Chronic kidney | | LABORATORY | | | | disease,if found over a | | | | | | 3-month period.Less than | | | | | | 15 Kidney failureFor | | | | | | | | | | | | Americans,multiply the | | | | | | calculated GFR by 1.21. | | | | | | | | | | + + + + + + | Calcium | 8.7 | 8.3 - 10.5 | [facility] | | | | | mg/dL | [facility] | | | | | | MEDICAL | | | | | | CENTER - | | | | | | LABORATORY | | + + + + + + | BUN/Creatin | 18.8 | | [facility] | | | ine Ratio | | | [facility] | | | | | | MEDICAL | | | | | | CENTER - | | | | | | LABORATORY | | + + + + + + + + | Specimen | + + | Blood | + + + + + + + | Performing | Address | City/State/Zipcode | Phone Number | | Organization | | | | + + + + + | [facility] | [address] | [place] | [phone] | | [facility] | | [address] | | | - LABORATORY | | | | + + + + + Troponin I (06/10/2017 1:07 AM PST) + + + + + + | Component | Value | Ref Range | Performed | Pathologist | | | | | At | Signature | + + + + + + | Troponin I | 0.11 (H)Comment: | <0.06 ng/mL | [facility] | | | | Reference | | [facility] | | | | Ranges:0.00-0.06 = | | MEDICAL | | | | NORMAL>0.06 = | | CENTER - | | | | SUSPICIOUS FOR | | LABORATORY | | | | MYOCARDIAL DAMAGE NOTE: | | | | | | Values greater than 0.50 | | | | | | ng/mL have been shown | | | | | | to be strongly | | | | | | associated with acute | | | | | | myocardial infarction. | | | | | | The [employer] | | | | | | Cardiology (ACC) | | | | | | recommends a decision | | | | | | limit of 0.06 ng/mL for | | | | | | this assay. Results | | | | | | greater than 0.06 can | | | | | | reflect a pre-infarct | | | | | | acute coronary syndrome, | | | | | | but can also reflect | | | | | | myocardial necrosis or | | | | | | injury that is not due | | | | | | to coronary artery | | | | | | disease. Some of these | | | | | | causes are sepsis, | | | | | | hypocolemia, atrial | | | | | | fibrillation, heart | | | | | | failure, pulmonary | | | | | | embolism, myocarditis, | | | | | | myocardial contusion, | | | | | | and renal failure. The | | | | | | diagnosis of myocardial | | | | | | infarction should be | | | | | | based on a combination | | | | | | of the patient's | | | | | | clinical presentation | | | | | | and the clinical | | | | | | laboratory test results | | | | | | (especially serial | | | | | | troponin levels). | | | | + + + + + + + + | Specimen | + + | Blood | + + + + + + + | Performing | Address | City/State/Zipcode | Phone Number | | Organization | | | | + + + + + | [facility] | [address] | [place] | [phone] | | [facility] | | [address] | | | - LABORATORY | | | | + + + + + XR Chest AP Portable (06/09/2017 8:28 PM PST) + + | Specimen | + + | | + + + + + | Narrative | Performed At | + + + | XR CHEST AP PORTABLE 06/09/2017 8:28 PM HISTORY: coarse breath | [facility] | | sounds. COMPARISON: None. Findings: Extensive areas of | | | peripheral predominant scarring/fibrosis are seen throughout both | | | lungs. Mildly increased focal prominence of the interstitial markings | | | and slight blunting of the costophrenic sulci is also thought to be | | | most compatible with fibrosis no evidence of pneumothorax or pleural | | | effusion. Heart is normal in size. Scattered degenerative changes are | | | seen throughout the thoracic spine and right shoulder. 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 IMPRESSION - | | | Peripheral predominant areas of interstitial thickening and scarring | | | is thought to most likely represent chronic interstitial fibrosis. | | | Blunting of the costophrenic angles is also most likely compatible | | | with above-mentioned UIP pattern of fibrosis with superimposed | | | infectious etiology unable to be excluded. Dictated and Signed | | | by: Nigel Norman MD Electronically signed: 06/09/2017 8:59 PM | | + + + + + | Procedure Note | + + | Jaquan, Rad Results In - 06/09/2017 9:02 PM PST XR CHEST AP PORTABLE 06/09/2017 8:28 PM | | | | HISTORY: coarse breath sounds. | | | | COMPARISON: None. | | | | Findings: Extensive areas of peripheral predominant scarring/fibrosis are seen | | throughout both lungs. Mildly increased focal prominence of the interstitial | | markings and slight blunting of the costophrenic sulci is also thought to be | | most compatible with fibrosis no evidence of pneumothorax or pleural effusion. | | Heart is normal in size. Scattered degenerative changes are seen throughout the | | thoracic spine and right shoulder. Evidence of reverse shoulder arthroplasty on | | the left. | | | | IMPRESSION - | | Peripheral predominant areas of interstitial thickening and scarring is thought | | to most likely represent chronic interstitial fibrosis. | | | | Blunting of the costophrenic angles is also most likely compatible with | | above-mentioned UIP pattern of fibrosis with superimposed infectious etiology | | unable to be excluded. | | | | Dictated and Signed by: Nigel Norman MD | | Electronically signed: 06/09/2017 8:59 PM | + + + +---------+ + + | Performing | Address | City/State/Zipcode | Phone Number | | Organization | | | | + +---------+ + + | [facility] | | | | + +---------+ + + Influenza A and B RNA, NAAT (06/09/2017 8:00 PM PST) + + + + + + | Component | Value | Ref Range | Performed | Pathologist | | | | | At | Signature | + + + + + + | Influenza A | Positive (A) | Negative | [facility] | | | PCR | | | [facility] | | | | | | MEDICAL | | | | | | CENTER - | | | | | | LABORATORY | | + + + + + + | Influenza B | Negative | Negative | [facility] | | | PCR | | | [facility] | | | | | | MEDICAL | | | | | | CENTER - | | | | | | LABORATORY | | + + + + + + + + | Specimen | + + | Respiratory - Both | | anterior nares (body | | structure) | + + + + + + + | Performing | Address | City/State/Zipcode | Phone Number | | Organization | | | | + + + + + | [facility] | [address] | [place] | [phone] | | [facility] | | [address] | | | - LABORATORY | | | | + + + + + ECG 12 lead (06/09/2017 7:53 PM PST) + + + + + + | Component | Value | Ref Range | Performed | Pathologist | | | | | At | Signature | + + + + + + | VENTRICULAR | 83 | BPM | [facility] | | | RATE EKG | | | | | + + + + + + | ATRIAL RATE | 83 | BPM | [facility] | | + + + + + + | P-R | 152 | ms | [facility] | | | INTERVAL | | | | | + + + + + + | QRS | 130 | ms | [facility] | | | DURATION | | | | | + + + + + + | Q-T | 430 | ms | [facility] | | | INTERVAL | | | | | + + + + + + | Q-T | 505 | ms | [facility] | | | INTERVAL | | | | | | (CORRECTED) | | | | | + + + + + + | P WAVE AXIS | 63 | degrees | [facility] | | + + + + + + | QRS AXIS | -27 | degrees | [facility] | | + + + + + + | T AXIS | 70 | degrees | [facility] | | + + + + + + | INTERPRETAT | Normal sinus rhythmLeft | | [facility] | | | ION TEXT | bundle branch | | | | | | blockAbnormal ECGNo | | | | | | previous ECGs | | | | | | availableConfirmed by | | | | | | LOPEZ SAUL MD ([id number]) | | | | | | on 06/10/2017 7:07:54 AM | | | | + + + [...] | | | + +---------+ + + TSH (06/09/2017 7:10 PM PST) + + + + + + | Component | Value | Ref Range | Performed | Pathologist | | | | | At | Signature | + + + + + + | TSH | 0.94Comment: This is a | 0.45 - 5.33 | [facility] | | | | third generation TSH | uIU/mL | [facility] | | | | test. | | MEDICAL | | | | | | CENTER - | | | | | | LABORATORY | | + + + + + + + + | Specimen | + + | Blood | + + + + + + + | Performing | Address | City/State/Zipcode | Phone Number | | Organization | | | | + + + + + | [facility] | [address] | [place] | [phone] | | [facility] | | [address] | | | - LABORATORY | | | | + + + + + Troponin I (06/09/2017 7:10 PM PST) + + + + + + | Component | Value | Ref Range | Performed | Pathologist | | | | | At | Signature | + + + + + + | Troponin I | 0.12 (H)Comment: | <0.06 ng/mL | [facility] | | | | Reference | | [facility] | | | | Ranges:0.00-0.06 = | | MEDICAL | | | | NORMAL>0.06 = | | CENTER - | | | | SUSPICIOUS FOR | | LABORATORY | | | | MYOCARDIAL DAMAGE NOTE: | | | | | | Values greater than 0.50 | | | | | | ng/mL have been shown | | | | | | to be strongly | | | | | | associated with acute | | | | | | myocardial infarction. | | | | | | The [employer] | | | | | | Cardiology (ACC) | | | | | | recommends a decision | | | | | | limit of 0.06 ng/mL for | | | | | | this assay. Results | | | | | | greater than 0.06 can | | | | | | reflect a pre-infarct | | | | | | acute coronary syndrome, | | | | | | but can also reflect | | | | | | myocardial necrosis or | | | | | | injury that is not due | | | | | | to coronary artery | | | | | | disease. Some of these | | | | | | causes are sepsis, | | | | | | hypocolemia, atrial | | | | | | fibrillation, heart | | | | | | failure, pulmonary | | | | | | embolism, myocarditis, | | | | | | myocardial contusion, | | | | | | and renal failure. The | | | | | | diagnosis of myocardial | | | | | | infarction should be | | | | | | based on a combination | | | | | | of the patient's | | | | | | clinical presentation | | | | | | and the clinical | | | | | | laboratory test results | | | | | | (especially serial | | | | | | troponin levels). | | | | + + + + + + + + | Specimen | + + | Blood | + + + + + + + | Performing | Address | City/State/Zipcode | Phone Number | | Organization | | | | + + + + + | [facility] | [address] | [place] | [phone] | | [facility] | | [address] | | | - LABORATORY | | | | + + + + + Procalcitonin (06/09/2017 7:09 PM PST) + + + + + + | Component | Value | Ref Range | Performed | Pathologist | | | | | At | Signature | + + + + + + | Procalciton | 0.14 | <=0.50 ng/mL | [facility] | | | in | | | [facility] | | | | | | MEDICAL | | | | | | CENTER - | | | | | | LABORATORY | | + + + + + + | Comment | Comment: < 0.50 | | [facility] | | | | ng/mL:Procalcitonin | | [facility] | | | | levels below 0.50 ng/mL | | MEDICAL | | | | on the first day of | | CENTER - | | | | admission represents a | | LABORATORY | | | | low risk for progression | | | | | | to severe sepsis and/or | | | | | | septic shock, however | | | | | | these do not exclude an | | | | | | infection, because | | | | | | localized infections | | | | | | (without systemic signs) | | | | | | may also be associated | | | | | | with such low levels. | | | | | | > 2.00 | | | | | | ng/mL:Procalcitonin | | | | | | levels above 2.00 ng/mL | | | | | | on the first day of | | | | | | admission represents a | | | | | | high risk for | | | | | | progression to severe | | | | | | sepsis and/or septic | | | | | | shock. If the | | | | | | procalcitonin | | | | | | measurement is performed | | | | | | shortly after the | | | | | | systemic infection | | | | | | process has started | | | | | | (usually less than 6 | | | | | | hours), these values may | | | | | | still be low. As | | | | | | various non-infectious | | | | | | conditions are known to | | | | | | induce procalcitonin as | | | | | | well, procalcitonin | | | | | | levels between 0.50 | | | | | | ng/mL and 2.00 ng/mL | | | | | | should be reviewed | | | | | | carefully to take into | | | | | | account the specific | | | | | | clinical background and | | | | | | condition(s) of the | | | | | | individual patient. | | | | + + + + + + + + | Specimen | + + | Blood | + + + + + + + | Performing | Address | City/State/Zipcode | Phone Number | | Organization | | | | + + + + + | [facility] | [address] | [place] | [phone] | | [facility] | | [address] | | | - LABORATORY | | | | + + + + + Extra Lavender Top Tube (06/09/2017 7:09 PM PST) + +-------+ + + + | Component | Value | Ref Range | Performed | Pathologist | | | | | At | Signature | + +-------+ + + + | Extra | Done | | [facility] | | | Lavender | | | [facility] | | | Top Tube | | | MEDICAL | | | | | | CENTER - | | | | | | LABORATORY | | + +-------+ + + + + + | Specimen | + + | Blood | + + + + + + + | Performing | Address | City/State/Zipcode | Phone Number | | Organization | | | | + + + + + | [facility] | [address] | [place] | [phone] | | [facility] | | [address] | | | - LABORATORY | | | | + + + + + Extra Green Top Tube (06/09/2017 7:09 PM PST) + +-------+ + + + | Component | Value | Ref Range | Performed | Pathologist | | | | | At | Signature | + +-------+ + + + | Extra Green | Done | | [facility] | | | Top Tube | | | [facility] | | | | | | MEDICAL | | | | | | CENTER - | | | | | | LABORATORY | | + +-------+ + + + + + | Specimen | + + | Blood | + + + + + + + | Performing | Address | City/State/Zipcode | Phone Number | | Organization | | | | + + + + + | [facility] | [address] | [place] | [phone] | | [facility] | | [address] | | | - LABORATORY | | | | + + + + + Extra Blue Top Tube (06/09/2017 7:09 PM PST) + +-------+ + + + | Component | Value | Ref Range | Performed | Pathologist | | | | | At | Signature | + +-------+ + + + | Extra Blue | Done | | [facility] | | | Top Tube | | | [facility] | | | | | | MEDICAL | | | | | | CENTER - | | | | | | LABORATORY | | + +-------+ + + + + + | Specimen | + + | Blood | + + + + + + + | Performing | Address | City/State/Zipcode | Phone Number | | Organization | | | | + + + + + | [facility] | [address] | [place] | [phone] | | [facility] | | [address] | | | - LABORATORY | | | | + + + + + Culture, MRSA (06/09/2017 6:31 PM PST) + + + + + + | Component | Value | Ref Range | Performed | Pathologist | | | | | At | Signature | + + + + + + | Culture | Negative for MRSA by | | [facility] | | | | chromogenic agar method | | [facility] | | | | | [facility] | | | | | [facility] - | | | | | | LABORATORY | | + + + + + + + + | Specimen | + + | Respiratory - Both | | anterior nares (body | | structure) | + + + + + + + | Performing | Address | City/State/Zipcode | Phone Number | | Organization | | | | + + + + + | [facility] | [address] | [place] | [phone] | | [facility] | | [id number] | | | - LABORATORY | | | | + + + + + LABS - EXTERNAL SCAN (06/09/2017 12:00 AM PST) + + + | Narrative | Performed At | + + + | Ordered by an | | | unspecified provider. | | + + + ECG - EXTERNAL SCAN (06/09/2017 12:00 AM PST) + + + | Narrative | Performed At | + + + | Ordered by an | | | unspecified provider. | | + + + documented in this encounter Visit Diagnoses + + | Diagnosis | + + | Atrial fibrillation with RVR (HCC) Atrial fibrillation | + + | Viral URI with cough Acute upper respiratory infections of unspecified site | + + | Essential hypertension Unspecified essential hypertension | + + | Depression, unspecified depression type | + + | Typical atrial flutter (HCC) Atrial flutter | + + | Influenza A Influenza with other respiratory manifestations | + + | Moderate protein-calorie malnutrition (HCC) Malnutrition of moderate degree | + + | Paroxysmal atrial flutter (HCC) Atrial flutter | + + | GERD (gastroesophageal reflux disease) Esophageal reflux | + + documented in this encounter Administered Medications + +---------+ + +-------+------+ | Medication Order | MAR | Action | Dose | Rate | Site | | | Action | Date | | | | + +---------+ + +-------+------+ | amiodarone (CORDARONE) 1.8 | New Bag | 06/09/19 | 1 mg/min | 33.3 | | | mg/mL in dextrose 5% 500 mL | | 18 7:34 | | mL/hr | | | infusion 1 mg/min (33.3333 | | PM PST | | | | | mL/hr, rounded to 33.3 mL/hr), at | | | | | | | 33.3 mL/hr, Intravenous, | | | | | | | TITRATED, Starting 06/09/17 at | | | | | | | 1915, For 6 hours, Use 0.22 | | | | | | | micron filter for | | | | | | | administration., | | | | | | + +---------+ + +-------+------+ +---+---+ | | | +---+---+ + +---------+ +--------+-------+---+ | amiodarone (CORDARONE) 1.8 | New Bag | 06/10/19 | 0.5 | 16.7 | | | mg/mL in dextrose 5% 500 mL | | 18 1:39 | mg/min | mL/hr | | | infusion 0.5 mg/min (16.6667 | | AM PST | | | | | mL/hr, rounded to 16.7 mL/hr), at | | | | | | | 16.7 mL/hr, Intravenous, | | | | | | | TITRATED, Starting Fri06/10/17 at | | | | | | | 0134, For 18 hours, Use 0.22 | | | | | | | micron filter for | | | | | | | administration., | | | | | | + +---------+ +--------+-------+---+ +---+---+ | | | +---+---+ + +-------+ +--------+---+---+ | amiodarone (PACERONE) tablet | Given | 06/11/19 | 200 mg | | | | 200 mg 200 mg, Oral, 2 TIMES | | 18 8:02 | | | | | DAILY, First dose on Fri06/10/17 | | AM PST | | | | | at 0900 | | | | | | + +-------+ +--------+---+---+ +-------+ +--------+---+---+ | Given | 06/10/19 | 200 mg | | | | | 18 9:38 | | | | | | PM PST | | | | +-------+ +--------+---+---+ | Given | 06/10/19 | 200 mg | | | | | 18 9:59 | | | | | | AM PST | | | | +-------+ +--------+---+---+ +---+---+ | | | +---+---+ + +-------+ +--------+-------+---+ | amiodarone in dextrose | Given | 06/09/19 | 150 mg | 600 | | | (NEXTERONE) 150 mg/100 mL bolus | | 18 7:20 | | mL/hr | | | 150 mg 150 mg, Intravenous, | | PM PST | | | | | Administer over 10 Minutes, ONCE, | | | | | | | 06/09/17 at 1915, For 1 dose, | | | | | | | For Rhythm Control, | | | | | | + +-------+ +--------+-------+---+ +---+---+ | | | +---+---+ + +-------+ +--------+---+---+ | apixaban (ELIQUIS) tablet 2.5 | Given | 06/11/19 | 2.5 mg | | | | mg 2.5 mg, Oral, 2 TIMES DAILY, | | 18 8:04 | | | | | First dose on Fri06/10/17 at 0900 | | AM PST | | | | + +-------+ +--------+---+---+ +-------+ +--------+---+---+ | Given | 06/10/19 | 2.5 mg | | | | | 18 9:38 | | | | | | PM PST | | | | +-------+ +--------+---+---+ | Given | 06/10/19 | 2.5 mg | | | | | 18 9:59 | | | | | | AM PST | | | | +-------+ +--------+---+---+ +---+---+ | | | +---+---+ + +-------+ +-------+---+---+ | aspirin EC tablet 81 mg 81 mg, | Given | 06/11/19 | 81 mg | | | | Oral, DAILY, First dose on Fri | | 18 8:02 | | | | | 06/10/17 at 0900 | | AM PST | | | | + +-------+ +-------+---+---+ +-------+ +-------+---+---+ | Given | 06/10/19 | 81 mg | | | | | 18 8:19 | | | | | | AM PST | | | | +-------+ +-------+---+---+ + +---+ | | | + +---+ | benzonatate (TESSALON) capsule | | | 200 mg 200 mg, Oral, 3 TIMES | | | DAILY PRN, Cough, Starting Mon | | | 06/09/17 at 8 | | + +---+ | | | + +---+ | bisacodyl (DULCOLAX) | | | suppository 10 mg 10 mg, Rectal, | | | DAILY PRN, Constipation, | | | Starting 06/09/17 at 1946, If | | | all other bowel medications | | | ineffective x 24 hours or not | | | ordered., | | + +---+ | | | + +---+ + +-------+ +------+---+---+ | busPIRone (BUSPAR) tablet 5 mg | Given | 06/11/19 | 5 mg | | | | 5 mg, Oral, 3 TIMES DAILY, First | | 18 1:08 | | | | | dose on 06/09/17 at 2100 | | PM PST | | | | + +-------+ +------+---+---+ +-------+ +------+---+---+ | Given | 06/11/19 | 5 mg | | | | | 18 8:03 | | | | | | AM PST | | | | +-------+ +------+---+---+ | Given | 06/10/19 | 5 mg | | | | | 18 9:37 | | | | | | PM PST | | | | +-------+ +------+---+---+ + +---+ | | | + +---+ | calcium carbonate (TUMS) | | | chewable tablet 1,000 mg 1,000 | | | mg, Oral, EVERY 4 HOURS PRN, | | | Indigestion, Starting 06/09/17 | | | at 1948 | | + +---+ | | | + +---+ | docusate sodium (COLACE) | | | capsule 100 mg 100 mg, Oral, 2 | | | TIMES DAILY PRN, Constipation, | | | Starting Fri06/09/17 at 1947, 1st | | | line agent for constipation | | | relief., | | + +---+ | | | + +---+ + +-------+ +-------+---+ + | enoxaparin (LOVENOX) 60 mg/0.6 | Given | 06/09/19 | 36 mg | | Abdomen- | | mL injection 36 mg 36 mg | | 18 9:06 | | | LUQ | | (rounded from 35.5 mg = 1 mg/kg | | PM PST | | | | | | | | | | | | 35.5 kg), Subcutaneous, EVERY 12 | | | | | | | HOURS (2 times per day), First | | | | | | | dose on Fri06/09/17 at 2100 | | | | | | + +-------+ +-------+---+ + +---+---+ | | | +---+---+ + +-------+ +--------+---+---+ | ferrous sulfate tablet 325 mg | Given | 06/11/19 | 325 mg | | | | 325 mg, Oral, 2 TIMES DAILY WITH | | 18 8:04 | | | | | BREAKFAST & DINNER, First dose on | | AM PST | | | | | 06/09/17 at 2015 | | | | | | + +-------+ +--------+---+---+ +-------+ +--------+---+---+ | Given | 06/10/19 | 325 mg | | | | | 18 4:29 | | | | | | PM PST | | | | +-------+ +--------+---+---+ | Given | 06/10/19 | 325 mg | | | | | 18 8:19 | | | | | | AM PST | | | | +-------+ +--------+---+---+ + +---+ | | | + +---+ | guaiFENesin JOEYSIN) 100 | | | mg/5 mL liquid 200 mg 200 mg, | | | Oral, EVERY 4 HOURS PRN, Cough, | | | Starting 06/09/17 at 1948 | | + +---+ | | | + +---+ + +-------+ + +---+---+ | HYDROcodone-acetaminophen | Given | 06/11/19 | 1 tablet | | | | (NORCO) 7.5-325 mg per tablet 1 | | 18 9:24 | | | | | tablet 1 tablet, Oral, EVERY 6 | | AM PST | | | | | HOURS PRN, Pain, Starting Tue | | | | | | | 06/10/17 at 1618 | | | | | | + +-------+ + +---+---+ +-------+ + +---+---+ | Given | 06/10/19 | 1 tablet | | | | | 18 4:29 | | | | | | PM PST | | | | +-------+ + +---+---+ +---+---+ | | | +---+---+ + +-------+ +---------+---+---+ | ipratropium (ATROVENT) 500 | Given | 06/11/19 | 500 mcg | | | | mcg/2.5 mL nebulizer solution 500 | | 18 7:43 | | | | | mcg 500 mcg, Nebulization, RT | | AM PST | | | | | Q8H, First dose on Fri06/09/17 at | | | | | | | 2230, RT will administer., | | | | | | + +-------+ +---------+---+---+ +-------+ +---------+---+---+ | Given | 06/10/19 | 500 mcg | | | | | 18 10:59 | | | | | | PM PST | | | | +-------+ +---------+---+---+ | Given | 06/10/19 | 500 mcg | | | | | 18 2:33 | | | | | | PM PST | | | | +-------+ +---------+---+---+ +---+---+ | | | +---+---+ + +-------+ +-------+---+---+ | lisinopril (PRINIVIL,ZESTRIL) | Given | 06/11/19 | 40 mg | | | | tablet 40 mg 40 mg, Oral, DAILY, | | 18 8:03 | | | | | First dose on Fri06/10/17 at | | AM PST | | | | | 0900, Hold for sbp<100, | | | | | | + +-------+ +-------+---+---+ +-------+ +-------+---+---+ | Given | 06/10/19 | 40 mg | | | | | 18 8:19 | | | | | | AM PST | | | | +-------+ +-------+---+---+ + +---+ | | | + +---+ | melatonin tablet 1.5 mg 1.5 | | | mg, Oral, NIGHTLY PRN, Insomnia, | | | Starting 06/09/17 at 1947 | | + +---+ | | | + +---+ + +-------+ +-------+---+---+ | metoprolol tartrate (LOPRESSOR) | Given | 06/11/19 | 25 mg | | | | tablet 25 mg 25 mg, Oral, | | 18 8:04 | | | | | TIMES DAILY, First dose on Mon | | AM PST | | | | | 06/09/17 at 2100, Hold for | | | | | | | sbp<100, hr<60, | | | | | | + +-------+ +-------+---+---+ +-------+ +-------+---+---+ | Given | 06/10/19 | 25 mg | | | | | 18 9:39 | | | | | | PM PST | | | | +-------+ +-------+---+---+ | Given | 06/10/19 | 25 mg | | | | | 18 8:19 | | | | | | AM PST | | | | +-------+ +-------+---+---+ +---+---+ | | | +---+---+ + +-------+ +-------+---+---+ | pantoprazole (PROTONIX) DR | Given | 06/11/19 | 40 mg | | | | tablet 40 mg 40 mg, Oral, DAILY | | 18 6:48 | | | | | BEFORE BREAKFAST, First dose on | | AM PST | | | | | 06/10/17 at 0730, Do not cut | | | | | | | or crush., | | | | | | + +-------+ +-------+---+---+ +-------+ +-------+---+---+ | Given | 06/10/19 | 40 mg | | | | | 18 6:42 | | | | | | AM PST | | | | +-------+ +-------+---+---+ + +---+ | | | + +---+ | polyethylene glycol (MIRALAX) | | | powder 17 g 17 g, Oral, DAILY | | | PRN, Constipation, Starting Mon | | | 06/09/17 at 1947, If docusate and | | | senna ineffective or not | | | ordered., | | + +---+ | | | + +---+ | senna (SENOKOT) tablet 8.6 mg | | | 8.6 mg, Oral, 2 TIMES DAILY PRN, | | | Constipation, Starting Mon | | | 06/09/17 at 1947, If docusate | | | ineffective or not ordered., | | + +---+ | | | + +---+ documented in this encounter Additional Health Concerns + + + + + | Infection | Onset Date | Last Indicated | Resolved Time | + + + + + | INFLUENZA (Retired - | 06/10/2017 | 06/10/2017 | 10/06/2019 5:02 PM | | Do Not Use) | | | PDT | + + + + + documented as of this encounter
--- OUTSIDE RECORDS SUMMARY | ~2019-11-14 | XMS | Encounter Summary ---
Demographics + + + | Address | [address] | | | [place] [address] | + + + | Home Phone | | + + + | Preferred Language | Unknown | + + + | Marital Status | | + + + | Advent Affiliation | 1041 | + + + | Race | Unknown | + + + | Ethnic Group | Unknown | + + + Author + + + | Author | [facility] | | | and [place] | + + + | Organization | [facility] | | | and [...] Team Providers + +------+ + | Care Spot Worker Name | Role | Phone | + +------+ + PCP | Unavailable | + +------+ + Encounter Details +--------+ + + + + | Date | Type | Department | Care Team | Description | +--------+ + + + + | 02/18/ | Hospital | [facility] | Conversion | Calculus of | | 1993 | Encounter | CONVERSION DEP [address] | Transaction, | gallbladder without | | | | [address] | Provider Unknown | mention of | | | | [place], [place] | | cholecystitis or | | | | [phone] | (Fax) | obstruction | | | | | | | +--------+ + + + [...] + | Diagnosis | + + | Calculus of gallbladder without mention of cholecystitis or obstruction | + + documented in this encounter"
--- OUTSIDE RECORDS SUMMARY | ~2019-11-14 | XMS | Encounter Summary ---
Demographics + + + | Address | [address] | | | [place] [address] | + + + | Home Phone | | + + + | Preferred Language | Unknown | + + + | Marital Status | | + + + | Spiritism Affiliation | 1041 | + + + | Race | Unknown | + + + | Ethnic Group | Unknown | + + + Author + + + | Author | [facility] | | | and [place]inder[place] | + + + | Organization | [facility] | | | and [...] Team Providers + +------+ + | Care Gear Repairer Name | Role | Phone | + [...] Description | +--------+--------+ + + + | 08/25/ | Refill | [facility] | Ranjan Gómez MD | Medication Refill | | 2018 | | CARDIOLOGY [address] | | | | | [place], | [place], [place] | | | | | [place] [address] | [address] | | | | | [phone] | | | +--------+--------+ + + + [...]
--- OUTSIDE RECORDS SUMMARY | ~2019-11-14 | XMS | Encounter Summary ---
Demographics + + + | Address | [address] | | | [place] [address] | + + + | Home Phone | | + + + | Preferred Language | Unknown | + + + | Marital Status | | + + + | Pentecostal Affiliation | 1041 | + + + | Race | Unknown | + + + | Ethnic Group | Unknown | + + + Author + + + | Author | [facility] | | | and [place]inder[place] | + + + | Organization | [facility] | | [...] Team Providers + +------+ + | Care Fish Conservationist Name | Role | Phone | + +------+ + | Brooks Cardona MD | PCP | | + +------+ + Reason for Referral Diagnostic/Screening (Routine) +--------+--------+ + + + + | Status | Reason | Specialty | Diagnoses / | Referred By | Referred To | | | | | Procedures | Contact | Contact | +--------+--------+ + + + + | Closed | | Radiology | Diagnoses | [place], | [facility] | | | | | Essential | MD Ranjan | [address] | | | | | hypertension | [address] | [place], | | | | | Orthopnea | [place] | [place] | | | | | Encounter | [place] | [address] | | | | | for | [address] | Phone: | | | | | monitoring | Phone: | [phone] | | | | | amiodarone | [phone] | Fax: | | | | | therapy | Fax: | [phone] | | | | | Procedures | [phone] | | | | | | ECHO | | | | | | | Complete | | | +--------+--------+ + + + + Reason for Visit Diagnostic/Screening (Routine) +--------+--------+ + + + + | Status | Reason | Specialty | Diagnoses / | Referred By | Referred To | | | | | Procedures | Contact | Contact | +--------+--------+ + + + + | Closed | | Radiology | Diagnoses | [place], | [facility] | | | | | Essential | MD Ranjan | [address] | | | | | hypertension | [address] | [place], | | | | | Orthopnea | [place] | [place] | | | | | Encounter | [place] | [address] | | | | | for | [address] | Phone: | | | | | monitoring | Phone: | [phone] | | | | | amiodarone | [phone] | Fax: | | | | | therapy | Fax: | [phone] | | | | | Procedures | [phone] | | | | | | ECHO | | | | | | | Complete | | | +--------+--------+ + + + + Encounter Details +--------+ + + + + | Date | Type | Department | Care Team | Description | +--------+ + + + + | 11/19/ | Hospital | [facility] | Ranjan Gómez MD | Essential | | 2019 | Encounter | [facility] [address] | hypertension; | | | | [place] | [place] | Orthopnea; Encounter | | | | [place] [address] | [address] | for monitoring | | | | [phone] | | amiodarone therapy | +--------+ + + + + Social [...] + + documented as of this encounter Medications at Time of Discharge + + + +---------+ + + | Medication | Sig | Dispensed | Refills | Start | End Date | | | | | | Date | | + + + +---------+ + + | amiodarone | take 1/2 tablet by | 45 | 3 | 09/18/19 | | | (PACERONE) 200 mg | mouth once daily | tablet | | 19 | | | tablet | | | [...] +---------+ + + | benazepril | Take 40 mg by mouth | | 0 | | | | (LOTENSIN) 40 MG | Daily. Patient is | | | | | | tablet | taking 20mg in the | | | | | | | am and 20mg in the | | | | | | | pm | | | | | + + [...] + + + +---------+ + + | gabapentin | Patient is not | | 0 | 09/29/19 | | | (NEURONTIN) 300 mg | taking. | | | 19 | | | capsule | | | [...] + + + +---------+ + + | furosemide (LASIX) | Take 1 tablet by | 30 | 3 | 10/28/19 | | | 20 mg | mouth Daily. | tablet | | 19 | 9 | | tabletIndications: | | | | | | | Essential | | | | | | | hypertension, | | | | | | | Orthopnea, Encounter | | | | | | | for monitoring | | | | | | | amiodarone therapy | | | | | | + [...] + | ECHO COMPLETE | Routin | 11/19/2018 | Essential | Results for this | | | e | 9:46 AM | hypertension | procedure are in the | | | | PDT | Orthopnea Encounter | results section. | | | | | for monitoring | | | | | | amiodarone therapy | | + +--------+ + + + | IMAGING REPORT - | | 11/04/2018 | | Results for this | | EXTERNAL SCAN | | 12:00 AM | | procedure are in the | | | | PDT | | results section. | + +--------+ + + + documented in this encounter Results ECHO Complete (11/19/2018 9:46 AM PDT) + +--------+ + + + | Component | Value | Ref Range | Performed | Pathologist | | | | | At | Signature | + +--------+ + + + | Patient | 90 | | [facility] | | | Weight | | | | | | (lbs) | | | | | + +--------+ + + + | Patient | 4'8" | | [facility] | | | Height | | | | | + +--------+ + + + | LVIDd | 4.43 | cm | [facility] | | + +--------+ + + + | FS | 16 | % | [facility] | | + +--------+ + + + | LA volume | 85.57 | mL | [facility] | | + +--------+ + + + | Ascending | 3.59 | cm | [facility] | | | aorta | | | | | + +--------+ + + + | Aortic arch | 2.87 | cm | [facility] | | + +--------+ + + + | AV mean | 4.02 | mmHg | [facility] | | | gradient | | | | | + +--------+ + + + | MV mean | 86.36 | mmHg | [facility] | | | gradient | | | | | + +--------+ + + + | MV Area by | 3.72 | cm2 | [facility] | | | P 1/2 | | | | | | method | | | | | + +--------+ + + + | IVRT | 132.6 | msec | [facility] | | + +--------+ + + + | LVOT peak | 76.27 | cm/s | [facility] | | | aric | | | | | + +--------+ + + + | LVOT peak | 18.23 | cm | [facility] | | | VTI | | | | | + +--------+ + + + | AV peak aric | 142 | cm/s | [facility] | | + +--------+ + + + | AV VTI | 32.21 | cm | [facility] | | + +--------+ + + + | MR max aric | 608.67 | cm/s | [facility] | | + +--------+ + + + | AV peak | 8.07 | mmHg | [facility] | | | gradient | | | | | + +--------+ + + + | MV peak | 148.19 | mmHg | [facility] | | | gradient | | | | | + +--------+ + + + | MV VTI | 260.96 | cm | [facility] | | + +--------+ + + + | MV Pressure | 59.15 | msec | [facility] | | | 1/2 time | | | | | + +--------+ + + + | LA Volume | 68 | mL/m2 | [facility] | | | Index | | | | | + +--------+ + + + | AV LVOT | 2.33 | mmHg | [facility] | | | Peak | | | | | | Gradient | | | | | + +--------+ + + + | AV LVOT | 1.13 | mmHg | [facility] | | | Mean | | | | | | Gradient | | | | | + +--------+ + + + | TR Peak | 36 | mmHg | [facility] | | | Gradient | | | | | + +--------+ + + + | TR Velocity | 299.44 | cm | [facility] | | + +--------+ + + + | LV | 7.17 | cm | [facility] | | | Diastolic | | | | | | Length 4C | | | | | + +--------+ + + + | LV Systolic | 13.52 | cm2 | [facility] | | | Area PSAX | | | | | + +--------+ + + + | LV | 60 | % | [facility] | | | Su's | | | | | | Biplane EF | | | | | + +--------+ + + + | AV | 82.88 | msec | [facility] | | | Acceleratio | | | | | | n Time | | | | | + +--------+ + + + | LV ED | 72.7 | ml | [facility] | | | Volume | | | | | | (Su's) | | | | | + +--------+ + + + | LV ED | 58 | ml/m2 | [facility] | | | Volume | | | | | | Index | | | | | + +--------+ + + + | LV ES | 28.78 | ml | [facility] | | | Volume | | | | | + +--------+ + + + | LVOT Mean | 49.42 | cm/s | [facility] | | | Velocity | | | | | + +--------+ + + + | MV A' | 8.96 | cm/s | [facility] | | | Lateral | | | | | | Velocity | | | | | + +--------+ + + + | MV E' | 8.96 | cm/s | [facility] | | | Lateral | | | | | | Velocity | | | | | + +--------+ + + + | MV A' | 7.88 | cm/s | [facility] | | | Septal | | | | | | Velocity | | | | | + +--------+ + + + | MV E' | 5.62 | cm/s | [facility] | | | Septal | | | | | | Velocity | | | | | + +--------+ + + + | MV | 423.76 | cm/s2 | [facility] | | | Deceleratio | | | | | | n Blount | | | | | + +--------+ + + + | MV | 203.97 | msec | [facility] | | | Deceleratio | | | | | | n Time | | | | | + +--------+ + + + | MV E/A | 1.04 | | [facility] | | | Ratio | | | | | + +--------+ + + + | MV Peak | 82.13 | cm/s | [facility] | | | A-Wave | | | | | + +--------+ + + + | MV Peak | 85.65 | cm/s | [facility] | | | E-Wave | | | | | + +--------+ + + + | AV Mean | 93.64 | cm/s | [facility] | | | Velocity | | | | | + +--------+ + + + | LA/Aorta | 1.08 | | [facility] | | | Ratio | | | | | + +--------+ + + + | LA Area | 25.47 | cm2 | [facility] | | + +--------+ + + + | LA Systolic | 13.95 | mmHg | [facility] | | | Pressure | | | | | + +--------+ + + + | MR Pisa | 0.21 | cm2 | [facility] | | | Area | | | | | + +--------+ + + + | MV E/E | 15.24 | | [facility] | | | SEPTAL | | | | | + +--------+ + + + | MV E/E | 9.56 | | [facility] | | | LATERAL | | | | | + +--------+ + + + | LA Major | 0.3221 | cm | [facility] | | + +--------+ + + + | LV ES | 23 | ml/m2 | [facility] | | | Volume | | | | | | Index | | | | | + +--------+ + + + | LV Area | 25.83 | cm2 | [facility] | | | Diastolic | | | | | + +--------+ + + + | Aortic Root | 3.27 | cm | [facility] | | | Diameter | | | | | + +--------+ + + + | IVS | 0.99 | cm | [facility] | | | Diastolic | | | | | | Thickness | | | | | | MM | | | | | + +--------+ + + + | LVPW | 0.92 | cm | [facility] | | | Diastolic | | | | | | Thickness | | | | | | MM | | | | | + +--------+ + + + | IVS | 1.06 | cm | [facility] | | | Systolic | | | | | | Thickness | | | | | | MM | | | | | + +--------+ + + + | LV Systolic | 3.73 | cm | [facility] | | | Diameter | | | | | | MM | | | | | + +--------+ + + + | LVPW | 0.9 | cm | [facility] | | | Systolic | | | | | | Thickness | | | | | | MM | | | | | + +--------+ + + + | AV Cusp | 2.03 | cm | [facility] | | | Seperation | | | | | | MM | | | | | + +--------+ + + + | LA Systolic | 3.53 | cm | [facility] | | | Diameter | | | | | | MM | | | | | + +--------+ + + + | TAPSE | 1.7 | cm | [facility] | | + +--------+ + + + | LVEF-TTE | 50 | % | [facility] | | | TRANSTHORAC | | | | | | IC ECHO | | | | | + +--------+ + + + + + | Specimen | + + | | + + + + + | Narrative | Performed At | + + + | 1. Normal | [facility] | | left ventricular chamber diameter and wall thickness 2. Mildly | | | reduced left ventricular systolic function with regional wall motion | | | abnormality 3. Moderate mitral valve regurgitation 4. Mild to | | | moderate tricuspid regurgitation with mildly elevated estimated | | | pulmonary artery systolic pressure 5. Moderate left atrial chamber | | | enlargement 6. When compared with prior echocardiogram dated | | | , left ventricular systolic function is similar, technical | | | quality a prior study was limited, atrial and tricuspid valve | | | regurgitation may be worsened | | | | | + + + + +---------+ + + | Performing | Address | City/State/Zipcode | Phone Number | | Organization | | | | + +---------+ + + | [facility] | | | | + +---------+ + + IMAGING REPORT - EXTERNAL SCAN (11/04/2018 12:00 AM PDT) + + + | Narrative | Performed At | + + + | Ordered by an | | | unspecified provider. | | + + + documented in this encounter Visit Diagnoses + + | Diagnosis | + + | Essential hypertension Unspecified essential hypertension | + + | Orthopnea | + + | Encounter for monitoring amiodarone therapy Encounter for therapeutic drug monitoring | + + documented in this encounter
--- OUTSIDE RECORDS SUMMARY | ~2019-11-14 | XMS | Encounter Summary ---
Demographics + + + | Address | [address] | | | [place] [address] | + + + | Home Phone | | + + + | Preferred Language | Unknown | + + + | Marital Status | | + + + | Latter-Day Affiliation | 1041 | + + + | Race | Unknown | + + + | Ethnic Group | Unknown | + + + Author + + + | Author | [facility] | | | and [place] | + + + | Organization | [facility] | | | and [place] [...] Team Providers + +------+ + | Care Museum Archivist Name | Role | Phone | + +------+ + | Brooks Cardona MD | PCP | | + +------+ + Reason for Visit +--------+--------+ + | Reason | Onset | Comments | | | Date | | +--------+--------+ + | Other | 11/10/ | lab orders and follow up | | | 2020 | | +--------+--------+ + Encounter Details +--------+ + + + + | Date | Type | Department | Care Team | Description | +--------+ + + + + | 11/10/ | Telephone | [facility] [place] | Ranjan Gómez MD | Other (lab orders | | 2019 | | CARDIOLOGY [address] | and follow up) | | | | [place], | [place] | | | | | [place] [address] | [address] | | | | | [phone] | | | +--------+ + + + [...] + + documented as of this encounter Miscellaneous Notes Telephone Encounter - Alis Marrero - 11/12/2019 11:08 AM PDTCalled lvm to schedule p er below message eleph one Encounter - Sirisha Rich RN - 11/11/2019 8:28 AM PDTPatient was seen in October 2018 and put in recall for 1 year. Lab orders were faxed to [facility] in [place] for Dr Gómez , ordered was BMP. Patient will need to be scheduled to see a different physician for her yearly check up. Wi ll ask PSR's to please coordinate yearly follow up with patient and then let us know so we c an cancel the original order through [facility] and send a new order. ...........................................Sirisha Rich RN, on 11/11/19 at 8:33 AM PDT documented in this encounter Plan of Treatment Not on filedocumented as of this encounter Visit Diagnoses Not on filedocumented in this encounter"
--- OUTSIDE RECORDS SUMMARY | ~2019-11-14 | XMS | Clinical Summary ---
Demographics + + + | Address | [address] | | | [place] [address] | + + + | Home Phone | | + + + | Preferred Language | Unknown | + + + | Marital Status | | + + + | Congregation Affiliation | 1041 | + + + | Race | Unknown | + + + | Ethnic Group | Unknown | + + + Author + + + | Author | [facility] | | | and Rajinderana | + + + | Organization | [facility] | | | and Rajinderana [...] Team Providers + +------+ + | Care Nursing Attendant Name | Role | Phone | + +------+ + | Brooks Cardona MD | PCP | | + +------+ + Allergies + + + + + + | Active Allergy | Reactions | Severity | Noted | Comments | | | | | Date | | + + + + + + | Acetaminophen | Itching | Low | 05/18/19 | | | | | | 15 | | + + + + + + Medications + + + +---------+------+------+-------+ | Medication | Sig | Dispensed | Refills | Star | End | Statu | | | | | | t | Date | s | | | | | | Date | | | + + + +---------+------+------+-------+ | busPIRone (BUSPAR) | Take 5 mg by mouth 3 | | 0 | | | Activ | | 5 mg tablet | times daily Patient | | | | | e | | | is not taking. | | | | | | + + + +---------+------+------+-------+ | dexlansoprazole | Take 60 mg by mouth | | 0 | | | Activ | | (DEXILANT) [address] | Daily. | | | | | e | | capsule | | | | | | | + + + +---------+------+------+-------+ | ferrous sulfate | Take 325 mg by mouth | | 0 | | | Activ | | 325 mg tablet | 2 times daily (with | | | | | e | | | breakfast & | | | | | | | | dinner). | | | | | | + + + +---------+------+------+-------+ | | Take 1 tablet by | | 0 | | | Activ | | HYDROcodone-acetamin | mouth 3 times daily. | | | | | e | | ophen (NORCO) | | | | | | | | 7.5-325 mg per | | | | | | | | tablet | | | | | | | + + + +---------+------+------+-------+ | metoprolol | Take 25 mg by mouth | | 0 | | | Activ | | tartrate (LOPRESSOR) | 2 times daily. | | | | | e | | 25 mg tablet | | | | | | | + + + +---------+------+------+-------+ | Multiple | Take 1 tablet by | | 0 | | | Activ | | Vitamins-Minerals | mouth Daily. | | | | | e | | (ADULT MULTIVITAMIN | | | | | | | | WITH MINERALS/IRON) | | | | | | | | TABS | | | | | | | + + + +---------+------+------+-------+ | ascorbic acid | Take 500 mg by mouth | | 0 | | | Activ | | (VITAMIN C) 500 mg | Daily. | | | | | e | | tablet | | | | | | | + + + +---------+------+------+-------+ | apixaban (ELIQUIS) | Take 1 tablet by | 60 | 1 | 02/2 | | Activ | | 2.5 mg tablet | mouth 2 times daily. | tablet | | 1/20 | | e | | | | | | 18 | | | + + + +---------+------+------+-------+ | aspirin 81 MG EC | Take 1 tablet by | 30 | 0 | 02/2 | | Activ | | tablet | mouth Daily. | tablet | | 2/20 | | e | | | | | | 18 | | | + + + +---------+------+------+-------+ | benazepril | Take 40 mg by mouth | | 0 | | | Activ | | (LOTENSIN) 40 MG | Daily. Patient is | | | | | e | | tablet | taking 20mg in the | | | | | | | | am and 20mg in the | | | | | | | | pm | | | | | | + + + +---------+------+------+-------+ | amiodarone | take 1/2 tablet by | 45 | 3 | 05/3 | | Activ | | (PACERONE) 200 mg | mouth once daily | tablet | | 0/20 | | e | | tablet | | | | 19 | | | + + + +---------+------+------+-------+ | gabapentin | Patient is not | | 0 | 06/1 | | Activ | | (NEURONTIN) 300 mg | taking. | | | 0/20 | | e | | capsule | | | | 19 | | | + + + +---------+------+------+-------+ | citalopram | Take 10 mg by mouth | | 0 | | | Activ | | (CELEXA) 10 mg | Daily. | | | | | e | | tablet | | | | | | | + + + +---------+------+------+-------+ | furosemide (LASIX) | take 1 tablet by | 90 | 3 | 07/0 | | Activ | | 20 mg tablet | mouth once daily. | tablet | | 2/20 | | e | | | | | | 20 | | | + + + +---------+------+------+-------+ | furosemide (LASIX) | take 1 tablet by | 30 | 3 | 06/0 | 07/0 | Disco | | 20 mg tablet | mouth once daily | tablet | | 9/20 | 2/20 | ntinu | | | | | | 20 | 20 | ed | | | | | | | | (Reor | | | | | | | | jillian | | | | | | | | (no | | | | | | | | Cance | | | | | | | | l Rx | | | | | | | | msg)) | + + + +---------+------+------+-------+ Active Problems + + + | Problem | Noted Date | + + + | Chest pain | 10/21/2017 | + + + | Influenza A | 06/10/2017 | + + + | Paroxysmal atrial flutter | 06/10/2017 | + + + | Moderate protein-calorie malnutrition | 06/10/2017 | + + + | Essential hypertension | 06/10/2017 | + + + | GERD (gastroesophageal reflux disease) | 06/10/2017 | + + + Encounters +--------+ + + + + | Date | Type | Specialty | Care Team | Description | +--------+ + + + + | 11/10/ | Telephone | Cardiology | Ranjan Gómez MD | Other (lab orders | | 2020 | | | | and follow up) | +--------+ + + + + | 10/20/ | Office | Cardiology | Ranjan Gómez MD | Essential | | 2019 | Visit | | | hypertension | | | | | | (Primary Dx); | | | | | | Paroxysmal atrial | | | | | | flutter (HCC) | +--------+ + + + + | 09/27/ | Refill | Cardiology | Ranjan Gómez MD | Medication Refill | | 2019 | | | | | +--------+ + + + + | 09/25/ | Refill | Cardiology | Ranjan Gómez MD | Medication Refill | | 2020 | | | | | +--------+ + + + + | 08/28/ | Refill | Cardiology | Ranjan Gómez MD | Medication Refill | | 2020 | | | | | +--------+ + + + + from Last 3 Months Family History + +------+ + + | Relation | Name | Status | Comments | + +------+ + + | Father | | | | + +------+ + + | Mother | | | | + +------+ + + Social History + +-------+ +--------+------+ [...] on file | | + + + Last Filed Vital Signs + + + [...] | | + + + + + Plan of Treatment + + + + + | Health Maintenance | Due Date | Last | Comments | | | | Done | | + + + + + | Medication | | | | | Management | 5 | | | + + + + + | Vaccine: Zoster (1 | | | | | of 2) | 5 | | | + + + + + | Vaccine: | | | | | Pneumococcal 65+ (1 | 0 | | | | of 1 - PPSV23) | | | | + + + + + | Adult Annual | | | | | Wellness Visit | 5 | | | + + + + + | Vaccine: | | 06/26/19 | | | Dtap/Tdap/Td (3 - | 6 | 06, | | | Td) | | 08/08/18 | | | | | 89 | | + + + + + | Med Mgmt: ALT | | 11/05/19 | | | | 0 | 19, | | | | | 11/05/19 | | | | | 19, | | | | | 08/19/19 | | | | | 18, | | | | | Addition | | | | | al | | | | | history | | | | | exists | | + + + + + | Med Mgmt: AST | | 11/05/19 | | | | 0 | 19, | | | | | 11/05/19 | | | | | 19, | | | | | 08/19/19 | | | | | 18, | | | | | Addition | | | | | al | | | | | history | | | | | exists | | + + + + + | Med Mgmt: Cr | | 11/05/19 | | | | 0 | 19, | | | | | 11/05/19 | | | | | 19, | | | | | 08/19/19 | | | | | 18, | | | | | Addition | | | | | al | | | | | history | | | | | exists | | + + + + + | Med Mgmt: HCT | | 11/05/19 | | | | 0 | 19, | | | | | 06/10/19 | | | | | 18 | | + + + + + | Med Mgmt: HGB | | 11/05/19 | | | | 0 | 19, | | | | | 06/10/19 | | | | | 18 | | + + + + + | Med Mgmt: K | | 11/05/19 | | | | 0 | 19, | | | | | 11/05/19 | | | | | 19, | | | | | 08/19/19 | | | | | 18, | | | | | Addition | | | | | al | | | | | history | | | | | exists | | + + + + + | Med Mgmt: Na | | 11/05/19 | | | | 0 | 19, | | | | | 11/05/19 | | | | | 19, | | | | | 08/19/19 | | | | | 18, | | | | | Addition | | | | | al | | | | | history | | | | | exists | | + + + + + | Med Mgmt: TSH | | 11/05/19 | | | | 0 | 19, | | | | | 06/09/19 | | | | | 18 | | + + + + + | Med Mgmt: eGFR | | 11/05/19 | | | | 0 | 19, | | | | | 11/05/19 | | | | | 19, | | | | | 08/19/19 | | | | | 18, | | | | | Addition | | | | | al | | | | | history | | | | | exists | | + + + + + | Vaccine: Influenza | | 02/02/20 | | | (#1) | 0 | 19, | | | | | 02/03/20 | | | | | 18, | | | | | 02/11/20 | | | | | 17, | | | | | Addition | | | | | al | | | | | history | | | | | exists | | + + + + + | Med Mgmt: ECG | | 10/21/19 | | | | 1 | 20, | | | | | 10/28/19 | | | | | 19, | | | | | 10/22/19 | | | | | 18, | | | | | Addition | | | | | al | | | | | history | | | | | exists | | + + + + + Procedures + +--------+ + + + | [...] | | + +--------+ + + + from Last 3 Months Results ECG 12 lead (10/21/2019 11:27 AM [...] MD | | | | | | ([id number]) on 10/25/2019 | | | | | [...] | | | + +---------+ + + from Last 3 Months Insurance + +--------+ +--------+ +---------+--------+ | Payer | Benefi | Subscriber | Effect | Phone | Address | Type | | | t Plan | ID | pilar | | | | | | / | | Dates | | | | | | Group | | | | | | + +--------+ +--------+ +---------+--------+ | MEDICARE | MEDICA | [id number] | 10/20/19 | [phone] | | Medica | | | RE | | 02-Pre | 5 | | re | | | PART A | | sent | | | | | | AND B | | | | | | + +--------+ +--------+ +---------+--------+ + +--------+ +--------+ + + | Guarantor Name | Accoun | Relation to | Date | Phone | Billing Address | | | t Type | Patient | of | | | | | | | | | | + +--------+ +--------+ + + | Luz Falcon D | Person | Self [birth year] | [address] | | | al/Fam | | 1936 | [phone] | [place] [address] | | | josephine | | | 7 (Home) | | + +--------+ +--------+ + + Advance Directives + + + + + | Type | Date Recorded | Patient | Explanation | | | | Race Engine Builder | | + + + + + | Power of | | | | | Cleaning Specialist | | | | + + + + + | Advance | 06/09/2017 6:11 | | | | Directive | PM | | | + + + + + + + + + + | Code Status | Date | Date | Comments | | | Activated | Inactivated | | + + + + + | Full Code | 06/09/2017 | 06/11/2017 | | | | 8:08 PM | 3:42 PM | | + + + + + + + + +---+ | | | | | + + + +---+ | Full Code | 06/09/2017 | 06/09/2017 | | | by default | 7:48 PM | 8:08 PM | | | - TBD | | | | + + + +---+
--- OUTSIDE RECORDS SUMMARY | ~2019-11-14 | XMS | Encounter Summary ---
Demographics + + + | Address | [address] | | | [place] [address] | + + + | Home Phone | | + + + | Preferred Language | Unknown | + + + | Marital Status | | + + + | Druze Affiliation | 1041 | + + + | Race | Unknown | + + + | Ethnic Group | Unknown | + + + Author + + + | Author | [facility] | | | and Rajinderana | + + + | Organization | [facility] | | | and [...] Team Providers + +------+ + | Care City Recorder Name | Role | Phone | + +------+ + | Brooks Cardona MD | PCP | | + +------+ + Reason for Visit + + + | Reason | Comments | + + + | Hospital Follow-up | | + + + | Atrial Fibrillation | | + + + Self-referral (Routine) +--------+--------+ + + + + | Status | Reason | Specialty | Diagnoses / | Referred By | Referred To | | | | | Procedures | Contact | Contact | +--------+--------+ + + + + | Closed | | Cardiology | Diagnoses | | [place], | | | | | Atrial | | MD Ranjan | | | | | flutter | | [address] | | | | | (HCC) | | [place] | | | | | Procedures | | [place], [place] | | | | | New patient | | [address] Phone: | | | | | in our | | [phone] | | | | | office. | | Fax: | | | | | Consulted by | | [phone] | | | | | Dr. Gómez | | | | | | | in hospital. | | | +--------+--------+ + + + + Encounter Details +--------+---------+ + + + | Date | Type | Department | Care Team | Description | +--------+---------+ + + + | 07/10/ | Office | [facility] | Ranjan Gómez MD | Atrial fibrillation, | | 2018 | Visit | CARDIOLOGY [address] | chronic (HCC) | | | | [place], | [place], [place] | (Primary Dx) | | | | [place] [address] | [address] | | | | | [phone] | | | +--------+---------+ + + + [...] + + + | Blood Pressure | 140/80 | 07/10/2017 1:07 PM | | | | | PDT | | + + + + + | Pulse | 51 | 07/10/2017 1:07 PM | | | | | PDT | | + + + + + | Temperature | - | - | | + + + + + | Respiratory Rate | 14 | 07/10/2017 1:07 PM | | | | | PDT | | + + + + + | Oxygen Saturation | - | - | | + + + + + | Inhaled Oxygen | - | - | | | Concentration | | | | + + + + + | Weight | 37 kg (81 lb 9.1 oz) | 07/10/2017 1:07 PM | | | | | PDT | | + + + + + | Height | 142.2 cm (4' 8") | 07/10/2017 1:07 PM | | | | | PDT | | + + + + + | Body Mass Index | 18.29 | 07/10/2017 1:07 PM | | | | | PDT | | + + + + + documented in this encounter Patient Instructions Patient Instructions Josefa Mckenzie RN - 07/10/2017 1:15 PM PDTDecrease Amiodarone to 2 00 mg once daily. Increase Hydrochlorothiazide to 25 mg once daily. Blood test: Non-fasting Date Due: 3-4 weeks Where to go for labs: [facility] [address] [facility]. Follow up appointment: 2 months Provider: Dr. Ranjan Gómez Date: Check-In Time: documented in this encounter Progress Notes Ranjan Gómez MD - 07/10/2017 1:15 PM PDT PATIENT NAME: Luz Falcon : 1935: AGE: 81 y.o. PRIMARY CARE: Brooks Cardona MD CARDIOLOGY CLINIC PROGRESS NOTE Ms. Falcon presents for initial outpatient follow-up after her recent [place] a dmission on 06/09/17 with new onset atrial flutter with rapid ventricular rate. The patient had a mild troponin elevation on admission, transthoracic echocardiogram showed normal left ventricular systolic function without significant valve disease, normal TSH. The patient w as started on amiodarone and apixaban. She was continued on low-dose aspirin given the trop onin elevation. Since her hospital discharge she has had no recurrence of rapid heart beati ng and no complaints of chest pain. She has had elevated blood pressure readings at home as high as 190 systolic but averaging 150 systolic. Her benazepril dose was increased from 20 mg to 40 mg daily by her primary care physician. She is taking low-dose hydrochlorothiazid e as well as metoprolol tartrate. Her amiodarone dose is 200 mg twice daily. MEDICATIONS: Current Outpatient Prescriptions Medication Sig Dispense Refill amiodarone (PACERONE) 200 mg tablet Take 1 tablet by mouth Daily. 30 tablet 5 apixaban (ELIQUIS) 2.5 mg tablet Take 1 tablet by mouth 2 times daily. 60 tablet 1 ascorbic acid (VITAMIN C) 500 mg tablet Take 500 mg by mouth Daily. aspirin 81 MG EC tablet Take 1 tablet by mouth Daily. 30 tablet benazepril (LOTENSIN) 20 mg tablet Take 1 tablet by mouth Daily. (Patient taking differ ently: Take 40 mg by mouth Daily.) 30 tablet 1 busPIRone (BUSPAR) 5 mg tablet Take 5 [...] Acetaminophen Itching PHYSICAL EXAM Vital signs: Vitals: 07/10/17 1307 BP: 140/80 Pulse: 51 Resp: 14 Admit Weight: Weight: 37 kg (81 lb 9.1 oz) Current weight: Weight: 37 kg (81 lb 9.1 oz) Body mass index is 18.29 kg/m. General: Resting comfortably Chest: Clear Cardiovascular: Nondisplaced apical impulse, regular rhythm, no S3, jugular venous pressure normal Gastrointestinal: Abdomen soft, non-tender, normal bowel sounds, no organomegaly nor masses . Extremities: No edema Neuro: within normal LABS: Office Visit on 07/10/2017 Component Date Value Ref Range Status VENTRICULAR RATE EKG 07/11/2017 51 BPM Final ATRIAL RATE 07/11/2017 51 BPM Final P-R INTERVAL 07/11/2017 190 ms Final QRS DURATION 07/11/2017 146 ms Final Q-T INTERVAL 07/11/2017 518 ms Final Q-T INTERVAL (CORRECTED) 07/11/2017 477 ms Final P WAVE AXIS 07/11/2017 63 degrees Final QRS AXIS 07/11/2017 -9 degrees Final T AXIS 07/11/2017 80 degrees Final INTERPRETATION TEXT 07/11/2017 Final Value:Sinus bradycardia Left bundle branch block Abnormal ECG When compared with ECG of 09-JUN-2017 19:53, Vent. rate has decreased BY 32 BPM Left bundle branch block is now present Confirmed by JOLENE LOWE, [facility] ([id number]) on 07/11/2017 10:36:48 AM IMAGING: No results found. Resting ECG 07/10/17: Sinus bradycardia 51 bpm, left bundle branch block, when compared wit h prior ECG 06/09/17, no significant interval change DIAGNOSES AND ASSESSMENTS: 1. Paroxysmal atrial flutter: Patient remains in sinus rhythm on amiodarone without recurre nce of palpitation. She continues on low-dose aspirin and apixaban. She has had no evidenc e of bleeding complication. We will reduce her amiodarone dose today. 2. Uncontrolled hypertension: Patient will increase her hydrochlorothiazide dose to 25 mg d aily PLAN OR RECOMMENDATIONS: Reduce amiodarone 200 mg daily Increase hydrochlorothiazide 25 mg daily Home blood pressure monitoring Clinic follow-up 2-3 months or sooner as needed BMP within 1 month I appreciate the opportunity of participating in the care of this patient. Ranjan Gómez MD, 07/11/2017 11:25 documented in this enc ounter Plan of Treatment + +------+--------+ + + | Name | Type | Priori | Associated Diagnoses | Order Schedule | | | | ty | | | + +------+--------+ + + | Basic Metabolic | Lab | Routin | Atrial | 1 Occurrences | | Panel | | e | fibrillation, | starting 07/10/2017 | | | | | chronic (HCC) | until 07/11/2018 | + +------+--------+ + + documented as of this encounter Procedures + +--------+ + + + | Procedure Name | Priori | Date/Time | Associated Diagnosis | Comments | | | ty | | | | + +--------+ + + + | ECG 12 LEAD | Routin | 07/11/2017 | Atrial | Results for this | | | e | 10:36 AM | fibrillation, | procedure are in the | | | | PDT | chronic (HCC) | results section. | + +--------+ + + + documented in this encounter Results ECG 12 lead (07/11/2017 10:36 AM PDT) + + + + + + | Component | Value | Ref Range | Performed | Pathologist | | | | | At | Signature | + + + + + + | VENTRICULAR | 51 | BPM | [facility] | | | RATE EKG | | | | | + + + + + + | ATRIAL RATE | 51 | BPM | [facility] | | + + + + + + | P-R | 190 | ms | [facility] | | | INTERVAL | | | | | + + + + + + | QRS | 146 | ms | [facility] | | | DURATION | | | | | + + + + + + | Q-T | 518 | ms | [facility] | | | INTERVAL | | | | | + + + + + + | Q-T | 477 | ms | [facility] | | | INTERVAL | | | | | | (CORRECTED) | | | | | + + + + + + | P WAVE AXIS | 63 | degrees | [facility] | | + + + + + + | QRS AXIS | -9 | degrees | [facility] | | + + + + + + | T AXIS | 80 | degrees | [facility] | | + + + + + + | INTERPRETAT | Sinus bradycardiaLeft | | [facility] | | | ION TEXT | bundle branch | | | | | | blockAbnormal ECGWhen | | | | | | compared with ECG of | | | | | | 09-JUN-2017 19:53,Vent. | | | | | | rate has decreased BY | | | | | | 32 BPMLeft bundle | | | | | | branch block is now | | | | | | presentConfirmed by | | | | | | MATT FERNÁNDEZ MD | | | | | | ([id number]) on 07/11/2017 | | | | | | 10:36:48 AM | | | | + + [...] | Diagnosis | + + | Atrial fibrillation, chronic (HCC) - Primary Atrial fibrillation | + + documented in this encounter
--- OUTSIDE RECORDS SUMMARY | ~2019-11-14 | XMS | Encounter Summary ---
Demographics + + + | Address | [address] | | | [place] [address] | + + + | Home Phone | | + + + | Preferred Language | Unknown | + + + | Marital Status | | + + + | Congregation Affiliation | 1041 | + + + | Race | Unknown | + + + | Ethnic Group | Unknown | + + + Author + + + | Author | [facility] | | | and Rajinder[place] | + + + | Organization | [facility] | | | and Rajinderana [...] Team Providers + +------+ + | Care Crane Hooker Name | Role | Phone | + +------+ + PCP | Unavailable | + +------+ + Encounter Details +--------+ + + + + | Date | Type | Department | Care Team | Description | +--------+ + + + + | 07/08/ | Hospital | [facility] | Conversion | Backache, | | 1999 | Encounter | CONVERSION [address]P [address] | Transaction, | unspecified | | | | [address] | Provider Unknown | | | | | [place] | | | | | | [address] | (Fax) | | | | | [phone] | | | +--------+ + + + [...] + | Diagnosis | + + | Backache, unspecified | + + documented in this encounter"
--- OUTSIDE RECORDS SUMMARY | ~2019-11-14 | XMS | Encounter Summary ---
Demographics + + + | Address | [address] | | | [place] [address] | + + + | Home Phone | | + + + | Preferred Language | Unknown | + + + | Marital Status | | + + + | Taoist Affiliation | 1041 | + + + | Race | Unknown | + + + | Ethnic Group | Unknown | + + + Author + + + | Author | [facility] | | | and Rajinderana | + + + | Organization | [facility] | | | and Rajinderana [...] Team Providers + +------+ + | Care Sales Order Specialist Name | Role | Phone | + +------+ + PCP | Unavailable | + +------+ + Encounter Details +--------+ + + + + | Date | Type | Department | Care Team | Description | +--------+ + + + + | 03/01/ | Hospital | [facility] | Conversion | Screening for | | 1993 | Encounter | CONVERSION [address] | Transaction, | malignant neoplasm | | | | [address] | Provider Unknown | of the breast | | | | [place], [place] | | | | | | [address] | (Fax) | | | | | | | [...] + | Diagnosis | + + | Screening for malignant neoplasm of the breast | + + documented in this encounter"
--- OUTSIDE RECORDS SUMMARY | ~2019-11-14 | XMS | Encounter Summary ---
Demographics + + + | Address | [address] | | | [place] [address] | + + + | Home Phone | | + + + | Preferred Language | Unknown | + + + | Marital Status | | + + + | Congregational Affiliation | 1041 | + + + | Race | Unknown | + + + | Ethnic Group | Unknown | + + + Author + + + | Author | [facility] | | | and Rajinder[place] | + + + | Organization | [facility] | | | and Rajinderana [...] Team Providers + +------+ + | Care Automobile Body Repair Supervisor Name | Role | Phone | + +------+ + PCP | Unavailable | + +------+ + Encounter Details +--------+ + + + + | Date | Type | Department | Care Team | Description | +--------+ + + + + | 05/17/ | Hospital | [facility] | Marciano Avalos MD | | | 1994 | Encounter | MED [facility] | [address] | | | | | CONV [address]PT [address] | [address] [place] | | | | | [place], | [address] | | | | | [place] [address] | | | | | | [phone] | | | +--------+ + + + [...]
--- OUTSIDE RECORDS SUMMARY | ~2019-11-14 | XMS | Encounter Summary ---
Demographics + + + | Address | [address] | | | [place] [address] | + + + | Home Phone | | + + + | Preferred Language | Unknown | + + + | Marital Status | | + + + | Spiritism Affiliation | 1041 | + + + | Race | Unknown | + + + | Ethnic Group | Unknown | + + + Author + + + | Author | [facility] | | | and Rajinderana | + + + | Organization | [facility] | | | and Rajinderana | [...] Team Providers + +------+ + | Care Patient Services Technician Name | Role | Phone | + +------+ + | Brooks Cardona MD | PCP | | + +------+ + Reason for Visit + +--------+ + | Reason | Onset | Comments | | | Date | | + +--------+ + | Medication Refill | 09/27/ | | | | 2020 | | + +--------+ + Encounter Details +--------+--------+ + + + | Date | Type | Department | Care Team | Description | +--------+--------+ + + + | 09/27/ | Refill | [facility] [place] | Ranjan Gómez MD | Medication Refill | | 2020 | | CARDIOLOGY [address] | | | | | [place], | [place], [place] | | | | | [place] [address] | [address] | | | | | [phone] | | | +--------+--------+ + + + [...] this encounter Miscellaneous Notes Telephone Encounter - Efrain Bailon RN - 09/28/2019 5:02 PM PDTPatient scheduled visit for next month with Dr Gómez. She is requesting a refill of furosemide. Refills sent to preferred pharmacy............................................Efrain Bailon RN, on 09/28/19 at 5:03 PM documented in this encounter Plan of Treatment Not on filedocumented as of this encounter Visit Diagnoses Not on filedocumented in this encounter"
--- OUTSIDE RECORDS SUMMARY | ~2019-11-14 | XMS | Encounter Summary ---
Demographics + + + | Address | [address] | | | [place] [address] | + + + | Home Phone | | + + + | Preferred Language | Unknown | + + + | Marital Status | | + + + | Yazidism Affiliation | 1041 | + + + | Race | Unknown | + + + | Ethnic Group | Unknown | + + + Author + + + | Author | [facility] | | | and Rajinderana | + + + | Organization | [facility] | | | and Rajinderana [...] Team Providers + +------+ + | Care Set Decorator Name | Role | Phone | + [...] Essential | MD Ranjan | [address] | | | | | hypertension | [address] | [place], | | | | | Orthopnea | [place] | [place] | | | | | Encounter | [place], [place] | [address] | | | | | for | [address] | Phone: | | | | | monitoring | Phone: | [phone] | | | | | amiodarone | [phone] | Fax: | | | | | therapy | Fax: | [phone] | | | | | Procedures | [phone] | | | | | | ECHO | | | | | | | Complete | | | +--------+--------+ + + + + Reason for Visit + + + | Reason | Comments | + + + | Follow-up | | + + + Encounter Details +--------+---------+ + + + | Date | Type | Department | Care Team | Description | +--------+---------+ + + + | 10/27/ | Office | [facility] | Ranjan Gómez MD | Essential | | 2019 | Visit | CARDIOLOGY [address] | hypertension | | | | [address] [place], | [place], [place] | (Primary Dx); | | | | [place] [address] | [address] | Orthopnea; Encounter | | | | [phone] | | for monitoring | | | | | | amiodarone therapy | +--------+---------+ + + + Social History [...] + + + | Blood Pressure | 154/82 | 10/27/2018 8:14 AM | | | | | PDT | | + + + + + | Pulse | 54 | 10/27/2018 8:14 AM | | | | | PDT | | + + + + + | Temperature | - | - | | + + + + + | Respiratory Rate | 14 | 10/27/2018 8:14 AM | | | | | PDT | | + + + + + | Oxygen Saturation | - | - | | + + + + + | Inhaled Oxygen | - | - | | | Concentration | | | | + + + + + | Weight | 41 kg (90 lb 6.2 oz) | 10/27/2018 8:14 AM | | | | | PDT | | + + + + + | Height | 142.2 cm (4' 8") | 10/27/2018 8:14 AM | | | | | PDT | | + + + + + | Body Mass Index | 20.26 | 10/27/2018 8:14 AM | | | | | PDT | | + + + + + documented in this encounter Patient Instructions Patient Instructions Sirihsa Rich RN - 10/27/2018 8:30 AM PDT Stop Hydrochlorothiazide Start Furosemide (Lasix) 20mg - take one tablet by mouth one time daily in the morning Blood test: Non-fasting Date Due: 1 week - due 11-03-18, no later than 11-06-18 Where to go for labs: Lab of your choice, please see lab orders, take them with you to the lab. Chest X ray: Date: 11-04-18 Check-In Time: anytime Where to Check In: Hospital of your choice, please see order, take it to the facility of y our choice. Echo: Date: Check-In Time: Where to Check In: Follow up appointment: Provider: Ranjan Gómez MD Date: Check-In Time: documented in this encounter H&P Notes Ranjan Gómez MD - 10/27/2018 8:30 AM PDT PATIENT NAME: Luz Falcon : 1935: AGE: 83 y.o. PRIMARY CARE: Brooks Cardona MD CARDIOLOGY CLINIC PROGRESS NOTE Ms. Falcon presents for clinic follow-up. Since her prior visit of , she complains of mild orthopnea, mild lower extremity swelling, nonproductive cough. She has no complain ts of chest pain and no complaints of recurrent palpitation. The patient was taking an incr eased dose of amiodarone mistakenly 300 mg daily for 3 months while visiting [place] but has resumed taking 100 mg daily. She has not had lab work drawn within the past year. Her bloo d pressure continues to be labile with elevated readings in the 180 range at times. MEDICATIONS: Current Outpatient Medications Medication Sig Dispense [...] Acetaminophen Itching PHYSICAL EXAM Vital signs: Vitals: 10/27/18 0814 BP: 154/82 Pulse: 54 Resp: 14 Admit Weight: Weight: 41 kg (90 lb 6.2 oz) Current weight: Weight: 41 kg (90 lb 6.2 oz) Body mass index is 20.26 kg/m. General: Thin alert, resting comfortably Chest: Crackles bilaterally up to one half of both lung cormier Cardiovascular: Nondisplaced apical impulse, regular rhythm, normal S1, paradoxically split S2, S4 present, no S3, jugular venous pressure normal Gastrointestinal: Abdomen soft, non-tender, normal bowel sounds, no organomegaly nor masses . Extremities: Trace-1+ bilateral leg edema Neuro: within normal LABS: Office Visit on 10/27/2018 Component Date Value Ref Range Status INTERPRETATION TEXT 10/27/2018 Not Confirmed Preliminary IMAGING: No results found. Resting ECG 10/27/18: Sinus bradycardia 54 bpm, left bundle branch block, when compared wit h prior ECG dated 10/21/17, no significant interval change DIAGNOSES AND ASSESSMENTS: 1. Paroxysmal atrial flutter: The patient has had no recurrence of palpitation and continue s on low-dose amiodarone. She continues on oral anticoagulation with no bleeding episodes 2. Orthopnea, nonproductive cough, mild leg edema. The patient has crepitance on pulmonary examination today though her jugular venous pressure does not appear to be markedly elevate d. She has mild leg edema. The patient may have heart failure with preserved ejection frac tion. The possibility of amiodarone related lung disease will need to be excluded. 3. Labile systolic hypertension: Systolic Blood pressure in office today is 180 mmHg PLAN OR RECOMMENDATIONS: Discontinue hydrochlorothiazide Furosemide 20 g daily Lab work in one week, CMP, CBC, TSH Chest x-ray PA and lateral in one week Transthoracic echocardiogram assess LV function Clinic follow-up 3-4 weeks I appreciate the opportunity of participating in the care of this patient. Ranjan Gómez MD,[facility], 10/27/2018 9:32 documented in this enc ounter Plan of Treatment + +---------+--------+ + + | Name | Type | Priori | Associated Diagnoses | Order Schedule | | | | ty | | | + +---------+--------+ + + | XR Chest PA and | Imaging | Routin | Essential | Expected: | | Lateral | | e | hypertension | 10/27/2018, Expires: | | | | | Orthopnea Encounter | 10/27/2019 | | | | | for monitoring | | | | | | amiodarone therapy | | + +---------+--------+ + + | Comprehensive | Lab | Routin | Essential | Expected: | | Metabolic Panel | | e | hypertension | 10/27/2018, Expires: | | | | | Orthopnea Encounter | 10/27/2019 | | | | | for monitoring | | | | | | amiodarone therapy | | + +---------+--------+ + + | CBC with | Lab | Routin | Essential | Expected: | | Differential | | e | hypertension | 10/27/2018, Expires: | | | | | Orthopnea Encounter | 10/27/2019 | | | | | for monitoring | | | | | | amiodarone therapy | | + +---------+--------+ + + | TSH | Lab | Routin | Essential | Expected: | | | | e | hypertension | 10/27/2018, Expires: | | | | | Orthopnea Encounter | 10/27/2019 | | | | | for monitoring | | | | | | amiodarone therapy | | + +---------+--------+ + + documented as of this encounter Procedures + +--------+ + + + | Procedure Name | Priori | Date/Time | Associated Diagnosis | Comments | | | ty | | | | + +--------+ + + + | ECG 12 LEAD | Routin | 10/27/2018 | Essential | Results for this | | | e | 8:10 AM | hypertension | procedure are in [...] | | | | | | n [place] | | | | | + +--------+ [...] | | | + +---------+ + + ECG 12 lead (10/27/2018 8:10 AM PDT) + + + + + + | Component | Value | Ref Range | Performed | Pathologist | | | | | At | Signature | + + + + + + | VENTRICULAR | 54 | BPM | [facility] | | | RATE EKG | | | | | + + + + + + | ATRIAL RATE | 54 | BPM | [facility] | | + + + + + + | P-R | 188 | ms | [facility] | | | INTERVAL | | | | | + + + + + + | QRS | 146 | ms | [facility] | | | DURATION | | | | | + + + + + + | Q-T | 516 | ms | [facility] | | | INTERVAL | | | | | + + + + + + | Q-T | 489 | ms | [facility] | | | INTERVAL | | | | | | (CORRECTED) | | | | | + + + + + + | P WAVE AXIS | 59 | degrees | [facility] | | + + + + + + | QRS AXIS | 14 | degrees | [facility] | | + + + + + + | T AXIS | 74 | degrees | [facility] | | + + + + + + | INTERPRETAT | Sinus bradycardiaLeft | | [facility] | | | ION TEXT | bundle branch | | | | | | blockAbnormal ECGWhen | | | | | | compared with ECG of | | | | | | 21-OCT-2017 11:39,No | | | | | | significant change was | | | | | | foundConfirmed by | | | | | | MATT FERNÁNDEZ MD | | | | | | ([id number]) on 10/27/2018 | | | | | | 2:23:27 PM | | | | + + [...]
--- OUTSIDE RECORDS SUMMARY | ~2019-11-14 | XMS | Encounter Summary ---
Demographics + + + | Address | [address] | | | [place] [address] | + + + | Home Phone | | + + + | Preferred Language | Unknown | + + + | Marital Status | | + + + | Orthodox Affiliation | 1041 | + + + | Race | Unknown | + + + | Ethnic Group | Unknown | + + + Author + + + | Author | [facility] | | | and Rajinderana | + + + | Organization | [facility] | | | and Rajinderana [...] Team Providers + +------+ + | Care Harness Rigger Name | Role | Phone | + +------+ + | Brooks Cardona MD | PCP | | + +------+ + Encounter Details +--------+ + + + + | Date | Type | Department | Care Team | Description | +--------+ + + + + | 09/03/ | Imaging | [facility] | Provider, | | | 2019 | Exam | [facility] | MD [address] | | | | | IMAGING [address] | [address] | | | | | [address] | [place] [address] | | | | | [place] [address] | | | | | | [phone] | | | +--------+ + + + [...] +--------+ + + + | XR CHEST PA AND | Routin | 06/09/2017 | | Results for this | | LATERAL | e | 12:35 PM | | procedure are in the | | | | PST | | results section. | + +--------+ + + + documented in this encounter Results XR Chest PA and Lateral (06/09/2017 12:35 PM PST) + + | Specimen | + + | | + + + + + | Narrative | Performed At | + + + | External films for comparison only | [facility] | | | | | No results will be in the chart. | | + + + + +---------+ + + | Performing | Address | City/State/Zipcode | Phone Number | | Organization | | | | + +---------+ + + | [facility] | | | | + +---------+ + + documented in this encounter Visit Diagnoses Not on filedocumented in this encounter"
--- OUTSIDE RECORDS SUMMARY | ~2019-11-14 | XMS | Encounter Summary ---
Demographics + + + | Address | [address] | | | [place] [address] | + + + | Home Phone | | + + + | Preferred Language | Unknown | + + + | Marital Status | | + + + | Moravian Affiliation | 1041 | + + + | Race | Unknown | + + + | Ethnic Group | Unknown | + + + Author + + + | Author | [facility] | | | and Rajinderana | + + + | Organization | [facility] | | | and Rajinderana [...] Team Providers + +------+ + | Care Manufacturers Representative Name | Role | Phone | + [...] Description | +--------+--------+ + + + | 08/28/ | Refill | [facility] | Ranjan Gómez MD | Medication Refill | | 2019 | | CARDIOLOGY [address] | | | | | [place], | [place], [place] | | | | | [place] [address] | [address] | | | | | [phone] | | | +--------+--------+ + + + [...]
--- OUTSIDE RECORDS SUMMARY | ~2019-11-14 | XMS | Encounter Summary ---
Demographics + + + | Address | [address] | | | [place] [address] | + + + | Home Phone | | + + + | Preferred Language | Unknown | + + + | Marital Status | | + + + | Anabaptism Affiliation | 1041 | + + + | Race | Unknown | + + + | Ethnic Group | Unknown | + + + Author + + + | Author | [facility] | | | and Rajinderana | + + + | Organization | [facility] | | | and Rajinderana | [...] Team Providers + +------+ + | Care Training Development Specialist Name | Role | Phone | + +------+ + | Brooks Cardona MD | PCP | | + +------+ + Reason for Visit +--------+--------+ + | Reason | Onset | Comments | | | Date | | +--------+--------+ + | Other | 09/15/ | issue with amiodarone | | | 2018 | | +--------+--------+ + Encounter Details +--------+ + + + + | Date | Type | Department | Care Team | Description | +--------+ + + + + | 09/15/ | Telephone | [facility] | Ranjan Gómez MD | Other (issue with | | 2018 | | CARDIOLOGY [address] | amiodarone) | | | | [place], | [place] | | | | | [place] [address] | [address] | | | | | [phone] | | | +--------+ + + + [...] this encounter Miscellaneous Notes Telephone Encounter - Sirisha Rich RN - 09/17/2018 2:18 PM PDTPer conversation with Demond Gómez, patient can just resume amiodarone at this time at the normal dose. New Rx sent t o the pharmacy. Jeana is notified that they may have to pay enriquez for refills at this time be cause it will be too soon for insurance to cover. She is aware of that and fine with it. ... ........................................Sirisha Rich RN on 09/17/18 at 14:19 elephone Encounter - Sirisha Rich RN - 09/15/2018 1:42 PM PDTCandi called to report that Luz got he r medications mixed up. She took her amiodarone 3 times per day instead of her buspirone. She now has an abundance of buspirone and is out of amiodarone. Jeana had found the problem but can not refill the amiodarone. I will consult Dr Gómez for advise and then let her k now ...........................................Sirisha Rich RN on 09/15/18 at 13:45 documented in this encounter Plan of Treatment Not on filedocumented as of this encounter Visit Diagnoses Not on filedocumented in this encounter"
--- OUTSIDE RECORDS SUMMARY | ~2019-11-14 | XMS | Encounter Summary ---
Demographics + + + | Address | [address] | | | [place] [address] | + + + | Home Phone | | + + + | Preferred Language | Unknown | + + + | Marital Status | | + + + | Tenriism Affiliation | 1041 | + + + | Race | Unknown | + + + | Ethnic Group | Unknown | + + + Author + + + | Author | [facility] | | | and Rajinderana | + + + | Organization | [facility] | | | and Rajinderana [...] Team Providers + +------+ + | Care Community Arts Worker Name | Role | Phone | [...] Description | +--------+--------+ + + + | 01/17/ | Refill | [facility] [place] | Ranjan Gómez MD | Medication Refill | | 2017 | | CARDIOLOGY [address] | | | | | [place], | [place], [place] | | | | | [place] [address] | [address] | | | | | [phone] | | | +--------+--------+ + + + [...]
[~2019-11-14 19:23] MED LIST changes: +AMIODARONE HCL200 MG PO; +BENAZEPRIL HCL40 MG PO; +ELIQUIS2.5 MG PO; +HYDROCHLOROTHIA25 MG PO; +NEURONTIN300 MG PO; +ONDANSETRON ODT8 MG PO; +OXYCODONE HCL5 MG PO
--- OUTSIDE RECORDS SUMMARY | 2019-11-14 19:26 | XMS ---
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 [facility] has no Care Guidelines for this patient. Alida VISIT COUNT (12 MO.) 1 RAE Echeverria TOTAL 1 NOTE: Visits indicate total known visits. ED/C VISIT TRACKING (12 MO.) 11/14/2019 19:23 RAE Gomez [place] TYPE: Emergency COMPLAINT: - HEAD INJURY INPATIENT VISIT TRACKING (12 MO.) No inpatient visits to display in this time frame [email or web address]
[2019-11-14] MEDS ORDERED: NORCO 7.5-3251 EACH PO (19:38)
== END 2019-11-14 22:02 | disposition home or self-care (01) ==
LOC: ED 19:23
DX: S09.90XA Unspecified injury of head, initial encounter (principal); I10 Essential (primary) hypertension; I48.91 Unspecified atrial fibrillation; Z79.899 Other long term (current) drug therapy; Z79.82 Long term (current) use of aspirin; Z79.01 Long term (current) use of anticoagulants; W22.8XXA Striking against or struck by other objects, initial encounter
CPT/HCPCS: 70450; 80053; 81001; 84443; 85025; 85610; 85730; 99284-25

== ENCOUNTER 2020-06-30 21:27 | Inpatient (IN) | payer MEDICARE ==
[~2020-06-30] VITALS: Ht 142.2 cm; Wt 34.7 kg
[~2020-06-30 21:27] MED LIST changes: +HYDROCODON-ACE1 EA11 PO
--- OUTSIDE RECORDS SUMMARY | 2020-06-30 21:30 | XMS ---
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 [facility] has no Care Guidelines for this patient. Alida VISIT COUNT (12 MO.) 2 [facility] TOTAL 2 NOTE: Visits indicate total known visits. ED/C VISIT TRACKING (12 MO.) 06/30/2020 21:27 [facility] [place] TYPE: Emergency COMPLAINT: - CHEST PAIN 11/14/2019 19:23 [facility] TYPE: Emergency COMPLAINT: - HEAD INJURY DIAGNOSES: - Other usp (current) drug therapy - intermediate frame tender (current) use of aspirin - Essential (primary) hypertension - Unspecified injury of head, initial encounter - senior living (current) use of anticoagulants - Dizziness and giddiness - Striking against or struck by other objects, initial encounter - Unspecified atrial fibrillation INPATIENT VISIT TRACKING (12 MO.) No inpatient visits to display in this time frame [email or web address]
[2020-06-30] MEDS ORDERED: CITALOPRAM HBR10 MG PO (21:41)
[2020-06-30] MEDS ORDERED: FUROSEMIDE20 MG PO (21:41)
[2020-06-30] MEDS ORDERED: ADVAIR 100-501 EACH INH (21:41)
[2020-06-30] MEDS ORDERED: NEURONTIN300 MG PO (21:42)
--- NOTE | 2020-07-01 00:40 | NUR ---
PATIENT ARRIVED VIA STRECTCHER. TRANSFERED WITH MINIMAL ASSISTANCE. DENIES CHEST PAIN AND REPORTS BREATHING IS EASIER. LUNG SOUNDS ARE WHEEZING THORUGHOUT. PATIENT TOLERATING 4L NC NOW. VS STABLE. PATIENT HAS SOME NAUSEA. IV ZOFRAN PROVIDED. CLEMENTS HAS GOOD URINE OUTPUT, URINE IS DILUTE YELLOW. SKIN APPEARS WNL. PATIENT RESTING COMFORTABLY IN BED WITH EYES CLOSED. FAMILY AT BEDSIDE.
--- NOTE | 2020-07-01 02:52 | NUR ---
PATIENT APPEARS TO BE SLEEPING SOUNDLY. TOLERATING THE 4L NC. FAMILY AT BEDSIDE.
--- NOTE | 2020-07-01 04:14 | NUR ---
patient continues to sleep soundly. vs stable. hob elevated to 30 degrees. titrated to 3l nc. tello has good urine output. call light in reach. family at bedside.
--- NOTE | 2020-07-01 06:00 | NUR ---
LAB IN FOR MORNING DRAW. PATIENT RESTING QIETLY IN BED. DENIES PAIN OR SOB. VS STABLE. TOLERATING 3L NC WITH O2 SATS MID TO HIGH 90'S. TITRATED TO 2L NC. CLEMENTS DRAINING DILUTE URINE, EMPTIED AT THIS TIME FOR 700 MLS SINCE PATIENT ARRIVED. PATIENT AND FAMILY DENY NEEDS.
--- NOTE | 2020-07-01 07:30 | NUR ---
REPORT RECIEVED. PATIENT IS RESTING IN BED WITH HOB ELEVATED. NO DISTRESS NOTED.
--- NOTE | 2020-07-01 08:00 | NUR ---
ASSESSMENT DONE. DENIES PAIN OR SHORTNESS OF BREATH. ABLE TO MOVE UP IN BED W/O ASSIST. DAUGHTER IS IN ROOM. PATIENT IS W/O C/O.
[2020-07-01] MEDS ORDERED: VENTOLIN HFA18 GM INH (08:19)
--- NOTE | 2020-07-01 08:30 | NUR ---
ROUTINE MEDICATIONS GIVEN. LASIX 20 MG IV GIVEN. CLEMENTS CATH IS PATENT WITH CLEAR YELLOW URINE NOTED.
--- NOTE | 2020-07-01 09:50 | NUR ---
nitro paste has been removed, O2 back on to 1L due to desat to 88-87% while on room air and dozing.
--- NOTE | 2020-07-01 10:00 | NUR ---
DR. TRINIDAD HERE TO SEE PATIENT, PATIENT DENIES PROBLEMS. ORDERS RECIEVED TO TRANSFER TO MEDICAL FLOOR. WILL APPLY TELE PRIOR TO TRANSFER.
--- NOTE | 2020-07-01 10:30 | NUR ---
SLEEPING WITH HOB ELEVATED. NO DISTRESS NOTED.
--- NOTE | 2020-07-01 11:30 | NUR ---
ASSESSMENT DONE. NO CHANGES. REFUSING LUNCH. CLEMENTS CATH EMPTIEND FOR 625 ML OF CLEAR YELLOW URINE. DAUGHTER IN ROOM.
--- NOTE | 2020-07-01 12:44 | NUR ---
OOB TO CHAIR WITH ASSIST. DENIES SHORTNESS OF BREATH WITH EXERTION.
--- NOTE | 2020-07-01 13:10 | NUR ---
REPORT TO MED-SURG.
--- NOTE | 2020-07-01 13:29 | NUR ---
TO MED-SURG VIA CHAIR. REMAINS ON O2 AT 1 L NC.
--- NOTE | 2020-07-01 13:56 | NUR ---
PATIENT IN ROOM, SITTING UP IN CHAIR. DAUGHTER IS IN ROOM AND HELP WITH CLEARER TRANSLATIONS TO PATIENT. PATIENT DENIES ANY NEEDS AT THIS TIME.
--- NOTE | 2020-07-01 15:12 | NUR ---
PATIENT SITTING UP IN CHAIR WITH DAUGHTER IN THE ROOM. ASSESSMENT COMPLETED. CRACKLES NOTED IN LUNG SOUNDS. CLEMENTS CATHETER PATENT AND DRAINING. PATIENT DENIES PAIN OR FURTHER NEEDS AT THIS TIME. CALL LIGHT WITHIN REACH .
--- NOTE | 2020-07-01 15:45 | NUR ---
PATIENT FROM CCU. SITTING UP IN RECLINER IN ROOM AT THIS TIME. VISITING WITH FAMILY AT THIS TIME. DENIES NEEDS. ASSESSMENT COMPLETED.
--- NOTE | 2020-07-01 16:12 | NUR ---
LYING IN BED. RESTING WITH EYES CLOSED. STATES SHE HAS A HEADACHE AND IS REQUESTING SOMETHING AT THIS TIME.
--- NOTE | 2020-07-01 17:07 | NUR ---
PATIENT REPORTED HEADACHE 5/10 PAIN. PO PRN TYLENOL GIVEN. WILL CONTINUE TO MONITOR. DAUGHTER AT THE BEDSIDE. CALL LIGHT WITHIN REACH. PATIENT DENIES FURTHER NEEDS.
--- NOTE | 2020-07-01 18:12 | NUR ---
Sitting in bed. States headache has improved. Ate supper without issues. Remains on 1L/min per nasal canula oxygen. Family member remains in room. Deny needs at this time. Call light in reach. Bed rails up X2.
--- NOTE | 2020-07-01 18:29 | NUR ---
PATIENT REPORTS HEADACHE IS FEELING BETTER. DAUGHTER AT THE BEDSIDE. CALL LIGHT WITHIN REACH. PATIENT DENIES NEEDS AT THIS TIME.
--- NOTE | 2020-07-01 18:40 | NUR ---
Patient arrived on the floor from CCU early this afternoon. Patient has been up in chair for the majority of the day with her daughter in the room. Patient reported a headache later in the afternoon and was given PO tylenol, patient reported later that headache improved. Patient has crackles in the lower lungs but denies SOB or chest pain. Patient is on Tele #1 to monitor for adverse effects related to hyperkalemia, potassium level today was 5.6. Patient is resting in bed this evening and transfers with minimal assistance.
--- NOTE | 2020-07-01 19:09 | EKG ---
[facility] [address] [facility] [place], [place] [address] Signed Normal sinus rhythm Left bundle branch block Abnormal ECG When compared with ECG of 09-JUN-2017 15:33, (Unconfirmed) QRS duration has increased Confirmed by WM TRINIDAD DO ([id number]) on 07/01/2020 7:09:14 PM Electronically Signed By: WM TRINIDAD DO 07/01/20 1909 PATIENT NAME: STARKARAMIS Electrocardiogram DATE OF : 33 PHYSICIAN: WM TRINIDAD DO REPORT #: [id number] REPORT IS CONFIDENTIAL AND NOT TO BE RELEASED WITHOUT AUTHORIZATION
--- NOTE | 2020-07-01 19:09 | NUR ---
RECEIVED REPORT FROM BRANDIE NICKERSON. pt RESTING IN BED. DENIES NEEDS AT THIS TIME. CALL LIGHT WITHIN REACH. WHITEBOARD UPDATED.
--- NOTE | 2020-07-01 20:00 | NUR ---
CALL LIGHT ON. DAUGHTER AT BEDSIDE. pt SITTING IN BED ROCKING BACK AND FORTH COMPLAINING OF CHRONIC PAIN IN KNEES. DAUGHTER REPORTED pt TAKES PAIN MEDICATION AT HOME. CANDY CALLED BY DAUGHTER REPORTED MEDICATION NAMES, DOSE, AND TIMES. VERIFIED WITH MED REC. pt REFUSED HEAT/COLD THERAPIES AT THIS TIME.
--- NOTE | 2020-07-01 20:07 | NUR ---
DR TRINIDAD NOTIFIED OF pt REQUEST FOR HOME PAIN MEDICATION. NEW ORDERS ENTERED.
--- NOTE | 2020-07-01 20:38 | NUR ---
ASSESSMENT DONE. pt REPORTED 10/10 PAIN. PRN GIVEN WITH SCHEDULED MEDICATIONS (SEE MAR). CRACKLES HEARD IN RIGHT LOWER LOBE. INSTRUCTED pt ON DEEP BREATHING TO EXPAND LUNGS. pt VERBALIZED UNDERSTANDING. CLEMENTS DRAINED. NO FURTHER REQUESTS AT THIS TIME. DAUGHTER LACY AT BEDSIDE. CALL LIGHT WITHIN REACH.
--- NOTE | 2020-07-01 22:18 | NUR ---
ROUNDED ON pt. RESTING IN BED WITH EYES CLOSED, RESPIRATIONS REGULAR AND UNLABORED. HR 57 PER TELE 1. CALL LIGHT WITHIN REACH.
--- NOTE | 2020-07-02 01:16 | NUR ---
ROUNDED ON pt. RESTING IN BED WITH EYES CLOSED, RESPIRATIONS REGULAR AND UNLABORED. CALL LIGHT WITHIN REACH.
--- NOTE | 2020-07-02 06:00 | NUR ---
pt WOKE TO VOICE. RESTING IN BED. STANDING WEIGHT DONE. VITALS DONE. ASSESSMENT MOSTLY UNCHANGED. REPORTED 7/10 PAIN, PRN GIVEN (SEE MAR). DAUGHTER AT BEDSIDE. NO FURTHER REQUESTS AT THIS TIME. CALL LIGHT WITHIN REACH.
--- NOTE | 2020-07-02 07:04 | NUR ---
THIS GENERAL MANAGER ROAD PRODUCTION ASSISTED RN KENNEDY WITH VITALS, I&O, AND DAILY WEIGHT. DAUGHTER IN ROOM TO HELP WITH TRANSLATION. NO REQUESTS FROM THIS GENERAL MANAGER ROAD PRODUCTION. BRANDIE BENAVIDES IN ROOM WHEN THIS GENERAL MANAGER ROAD PRODUCTION EXITED.
--- NOTE | 2020-07-02 09:05 | NUR ---
VITALS OBTAINED, ASSESSMENT COMPLETED. LOW BP NOTED. DR. TRINIDAD NOTIFIED. ORDERS FOR HALF LITER BOLUS OF FLUIDS. AM MEDICATIONS GIVEN. TAKES WITHOUT DIFFICULTY. DENIES OTHER NEEDS.
--- NOTE | 2020-07-02 10:46 | NUR ---
patient refused linen change due to the fact she says she might leave today.
--- NOTE | 2020-07-02 11:40 | NUR ---
DR. TRINIDAD CALLED AND GAVE VERBAL ORDER TO STOP IV FLUIDS, COMPLETED.
--- NOTE | 2020-07-02 13:24 | NUR ---
CLEMENTS CATHETER DC'D. DC INSTRUCTIONS TO PATIENT AND DAUGHTER. VERBALIZE UNDERSTANDING. IV DC'C, CATHETER INTACT.
== END 2020-07-02 13:30 | disposition home or self-care (01) | DRG 291 ==
LOC: ED 21:27 → CCU 23:34 → MS 07-01 13:30
PROVIDERS: ADMIT Student in an Organized Health Care Education/Training Program; ATTEND Student in an Organized Health Care Education/Training Program
DX: I11.0 Hypertensive heart disease with heart failure (principal); J96.01 Acute respiratory failure with hypoxia; I50.33 Acute on chronic diastolic (congestive) heart failure; Z20.822 Contact with and (suspected) exposure to COVID-19; I48.0 Paroxysmal atrial fibrillation; F39 Unspecified mood [affective] disorder; E87.5 Hyperkalemia; J98.4 Other disorders of lung; M79.2 Neuralgia and neuritis, unspecified; Z79.899 Other long term (current) drug therapy; Z79.01 Long term (current) use of anticoagulants; Z79.82 Long term (current) use of aspirin; Z79.891 Long term (current) use of opiate analgesic; Z79.51 Long term (current) use of inhaled steroids
CPT/HCPCS: 36415; 36600; 51702; 71045; 71260; 80048; 80053; 83735; 83880; 84484; 85025; 85379; 93005; 93010; 94640; 94660; 94760; 99291; A9270; C9803; J1940; J2405; J7121; Q9967; U0003

== ENCOUNTER 2020-10-23 15:27 | Emergency (ER) | payer MEDICARE ==
[~2020-10-23] VITALS: Ht 142.2 cm; Wt 38.6 kg
[~2020-10-23 15:27] MED LIST changes: +ADVAIR 100-501 EACH INH; +CITALOPRAM HBR10 MG PO; +FUROSEMIDE20 MG PO; +VENTOLIN HFA18 GM INH
--- OUTSIDE RECORDS SUMMARY | 2020-10-23 15:30 | XMS ---
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 [facility] has no Care Guidelines for this patient. Alida VISIT COUNT (12 MO.) 3 RAE Echeverria TOTAL 3 NOTE: Visits indicate total known visits. ED/C VISIT TRACKING (12 MO.) 10/23/2020 15:28 [facility] [place] TYPE: Emergency COMPLAINT: - ADULT TRAUMA 06/30/2020 21:27 [facility] [place] TYPE: Emergency COMPLAINT: - CHEST PAIN 11/14/2019 19:23 [facility] [place] TYPE: Emergency COMPLAINT: - HEAD INJURY DIAGNOSES: - Other ferry terminal agent (current) drug therapy - termite treater (current) use of aspirin - Essential (primary) hypertension - Unspecified injury of head, initial encounter - termite treater (current) use of anticoagulants - Dizziness and giddiness - Striking against or struck by other objects, initial encounter - Unspecified atrial fibrillation INPATIENT VISIT TRACKING (12 MO.) 06/30/2020 23:34 [facility] [place] TYPE: Medical Surgical COMPLAINT: - HYPOXIA DIAGNOSES: - Unspecified mood [affective] disorder - Acute respiratory failure with hypoxia - termite treater (current) use of aspirin - assisted (current) use of inhaled steroids - termite treater (current) use of anticoagulants - Hyperkalemia - Hypertensive heart disease with heart failure - Acute on chronic diastolic (congestive) heart failure - Other ferry terminal agent (current) drug therapy - Paroxysmal atrial fibrillation - Neuralgia and neuritis, unspecified - Other disorders of lung - assisted (current) use of opiate analgesic [email or web address]
== END 2020-10-23 19:11 | disposition short-term general hospital (02) ==
LOC: ED 15:27
DX: S62.201A Unspecified fracture of first metacarpal bone, right hand, initial encounter for closed fracture (principal); S52.502A Unspecified fracture of the lower end of left radius, initial encounter for closed fracture; S52.602A Unspecified fracture of lower end of left ulna, initial encounter for closed fracture; S70.02XA Contusion of left hip, initial encounter; S00.93XA Contusion of unspecified part of head, initial encounter; I48.91 Unspecified atrial fibrillation; Z79.01 Long term (current) use of anticoagulants; Z20.822 Contact with and (suspected) exposure to COVID-19; W10.9XXA Fall (on) (from) unspecified stairs and steps, initial encounter; I10 Essential (primary) hypertension; Z79.82 Long term (current) use of aspirin; Z79.899 Other long term (current) drug therapy
CPT/HCPCS: 70450; 71045; 71260; 72125; 72170; 73090; 73110; 73130; 73502; 74177; 80048; 80053; 81001; 82150; 82553; 83605; 83690; 85025; 99285-25; C9803; G0480; J0690; J2250; J2270; J2405; J2765; J3010; Q9967; U0003

== ENCOUNTER 2020-11-16 12:50 | Emergency (ER) | payer MEDICARE ==
[~2020-11-16] VITALS: Ht 142.2 cm; Wt 38.6 kg
--- OUTSIDE RECORDS SUMMARY | 2020-11-16 12:52 | XMS ---
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 Alida VISIT COUNT (12 MO.) 3 [facility] TOTAL 3 NOTE: Visits indicate total known visits. ED/C VISIT TRACKING (12 MO.) 11/16/2020 12:50 R[facility] Gomez OR TYPE: Emergency COMPLAINT: - DEHYDRATION 10/23/2020 15:28 [facility] Gomez [place] TYPE: Emergency COMPLAINT: - ADULT TRAUMA DIAGNOSES: - terminal make up operator (current) use of anticoagulants - Unspecified atrial fibrillation - Other intermediate (current) drug therapy - Unspecified fracture of first metacarpal bone, right hand, initial encounter for closed fracture - Unspecified fracture of lower end of left ulna, initial encounter for closed fracture - Contusion of unspecified part of head, initial encounter - Essential (primary) hypertension - Unspecified fracture of the lower end of left radius, initial encounter for closed fracture - Fall (on) (from) unspecified stairs and steps, initial encounter - Contusion of left hip, initial encounter - terminal make up operator (current) use of aspirin 06/30/2020 21:27 RAE Modi TYPE: Emergency COMPLAINT: - CHEST PAIN INPATIENT VISIT TRACKING (12 MO.) 10/23/2020 20:06 [facility] [place] TYPE: Surgical Services DIAGNOSES: - Other displaced fracture of base of first metacarpal bone, right hand, initial encounter for closed fracture - Contusion of left hip, initial encounter - Fracture of unspecified carpal bone, left wrist, initial encounter for open fracture 06/30/2020 23:34 RAE Modi TYPE: Medical Surgical COMPLAINT: - HYPOXIA DIAGNOSES: - Unspecified mood [affective] disorder - Acute respiratory failure with hypoxia - terminal make up operator (current) use of aspirin - senior care (current) use of inhaled steroids - terminal make up operator (current) use of anticoagulants - Hyperkalemia - Hypertensive heart disease with heart failure - Acute on chronic diastolic (congestive) heart failure - Other terminal make up operator (current) drug therapy - Paroxysmal atrial fibrillation - Neuralgia and neuritis, unspecified - Other disorders of lung - terminal make up operator (current) use of opiate analgesic [email or web address]
[2020-11-16] MEDS ORDERED: ONDANSETRON ODT4 MG PO (15:32)
== END 2020-11-16 15:55 | disposition home or self-care (01) ==
LOC: ED 12:50
DX: N17.9 Acute kidney failure, unspecified (principal); R51.9 Headache, unspecified; R11.2 Nausea with vomiting, unspecified; I10 Essential (primary) hypertension; I48.91 Unspecified atrial fibrillation; Z79.82 Long term (current) use of aspirin; Z79.899 Other long term (current) drug therapy; Z79.891 Long term (current) use of opiate analgesic
CPT/HCPCS: 70450; 80048; 80500; 81001; 85025; 96374; 96375; 99284-25; J2405; J2765

== ENCOUNTER 2021-03-22 17:25 | Observation (INO) | payer MEDICARE ==
[~2021-03-22] VITALS: Ht 142.2 cm; Wt 37.9 kg
[~2021-03-22 17:25] MED LIST changes: +ONDANSETRON ODT4 MG PO
--- NOTE | 2021-03-22 19:01 | EKG ---
[facility] [address] [place] [address] Signed Normal sinus rhythm Left bundle branch block Abnormal ECG When compared with ECG of 16-NOV-2020 11:53, Vent. rate has increased BY 23 BPM Nonspecific T wave abnormality now evident in Inferior leads T wave inversion more evident in Lateral leads Confirmed by JULIEN SHRESTHA MD ([id number] on 03/22/2021 7:01:43 PM Electronically Signed By: JULIEN SHRESTHA MD 03/22/21 190 PATIENT NAME: JESICA STARKNIKA KRISHNAN Electrocardiogram DATE OF : 33 PHYSICIAN: JULIEN SHRESTHA MD REPORT #: [id number] REPORT IS CONFIDENTIAL AND NOT TO BE RELEASED WITHOUT AUTHORIZATION
--- NOTE | 2021-03-22 20:49 | NUR ---
2014 PATIENT ARRIVED VIA STRETCHER WITH HER DAUGHTER. PATIENT IS ALERT AND ORIENTED. TITRATED TO 5L NC RIGHT AWAY, 100% O2 SAT. VS STABLE. PATIENT MOVED TO THE BED WITH MINIMAL ASSIST, DID NOT APPEAR TO HAVE INCREASED WOB. LUNG SOUNDS HAVE CRACKLES THROUGHOUT. 2+ PITTING EDEMA NOTED IN SHANNA LOWER EXTREMITITES. PATIENT REPORTS 10/10 THROBBING HEADACHE, PRN NORCO PROVIDED. CLEMENTS NOTED TO HAVE DILUTE URINE OUTPUT. PREVIOUSLY EMPTIED FOR 1100 MLS IN ED. IV SITE FLUSHED, WNL. PATIENT PROVIDED WITH EVENING MEDS AND TOLERATED WELL. 2044 PATIENT'S DAUGHTER LEAVING FOR THE NIGHT. PATIENT RESTING IN BED. LIGHTS DIMMED. VERBALIZED UNDERSTANDING FOR PLAN OF CARE AND CALLING FOR ASSISTANCE IF NEEDED. CALL LIGHT IN REACH.
--- NOTE | 2021-03-22 23:14 | NUR ---
PATIENT APPEARS TO BE SLEEPING SOUNDLY. VS STABLE. O2 SATS 97-99% ON 2L NC, TITRATED TO 1L NC. PATIENT WOKE EASILY TO VOICE. DENIED ANY NEEDS. SCHEDULED LASIX PROVIDED, IV SITE FLUSHED EASILY. 525 MLS OF URINE EPTIED FROM CLEMENTS.
--- NOTE | 2021-03-23 04:30 | NUR ---
PATIENT HAS BEEN SLEEPING SOUNDLY. WOKE ONLY BREIFLY WITH CARE. TITRATED TO ROOM AIR. LUNG SOUNDS ARE IMPROVED BUT CONTINUE TO HAVE CRACKLES THORUGHOUT. CLEMENTS EMPTIED FOR 625 DILUTE URINE. VS STABLE. CALL LIGHT IN REACH.
--- NOTE | 2021-03-23 06:28 | NUR ---
PATIENT PROVIDED WITH COFFEE PER REQUEST. ASSISTED PATIENT TO POSITION IN BED WITH HOB ELEVATED. PATIENT HAS BEEN TOLERATING ROOM AIR. VS STABLE. DENIES FURTHER NEEDS.
--- NOTE | 2021-03-23 06:54 | NUR ---
PATIENT'S DAUGHTER CHRISSY IN THE ROOM, UPDATE PROVIDED FOR THE NIGHT.
--- NOTE | 2021-03-23 08:00 | NUR ---
HR IN THE MID 50'S, LOPRESSOR AND AMIODARON HELD FOR NOW, OTHER V/S WDL. UPPER LOBES ARE CLEAR, ALL OTHER LOBES HAVE CRACKLES PRESENT. NO PERIPH. EDEMA WAS NOTED. PT DENIES SOB AND STATED THAT SHE IS FEELING MUCH BETTER. PT IS ON RA WITH O2 SATS AT 99%. OVERALL NO NEW CONCERNS NOTED AT THIS TIME.
[2021-03-23] MEDS ORDERED: METOPROLOL TART50 MG PO (08:04)
--- NOTE | 2021-03-23 09:00 | NUR ---
SUPERVISOR FORCE ADJUSTMENT IN ROOM.
--- NOTE | 2021-03-23 10:00 | NUR ---
Spoke with pt and her daughter Nely, who works at [employer]. Pt an and daughter deny needs for DME, pt uses a cane. Daughter does states concern for pt to stay alone. Gave the brochure for [employer] and also the print out for How to Hire a Caregiver through [employer]. Daughter will transport pt home today. Both deny further needs.
--- NOTE | 2021-03-23 10:24 | NUR ---
WALKED PT AROUND IN ROOM AND PT DID WELL. BP SOFT BUT OTHER V/S ARE WDL. PT DENIED DIZZINESS AND SOB. MD SHRESTHA AWARE.
--- NOTE | 2021-03-23 10:35 | NUR ---
PATIENT AWAKE IN BED. DAUGHTER IN ROOM. LINENS CHANGED AND PATIENT AMBULATED FROM BED TO CHAIR WITH ASSISTANCE. CLEMENTS EMPTIED. CALL LIGHT IN REACH
--- NOTE | 2021-03-23 11:00 | NUR ---
PT IN ROOM. WILL GET PT READY FOR D/C.
[2021-03-23] MEDS ORDERED: FUROSEMIDE20 MG PO (11:29)
--- NOTE | 2021-03-23 11:43 | NUR ---
DISCHARGE VITALS CHARTED. CLEMENTS AND IV REMOVED. PATIENT GETTING DRESSED IN PERSONAL CLOTHES.
--- NOTE | 2021-03-23 11:55 | NUR ---
PT ALERT, ORIENTED AND SUPPORTED BY HER DAUGHTER CHRISSY. PT SPEAKS LITTLE TELUGU, CHRISSY HELPED. PT IS TO MD LATER TODAY, REQUESTED VISIT FROM [facility]. [facility] FOLLOWING MASS. INFORMED HIM. PT VERY PLEASANT AND CHEERFUL. GAVE BLESSING, WILL FOLLOW
== END 2021-03-23 12:00 | disposition home or self-care (01) ==
LOC: ED 17:25 → CCU 17:26
PROVIDERS: ADMIT Internal Medicine; ATTEND Internal Medicine
DX: I11.0 Hypertensive heart disease with heart failure (principal); I50.33 Acute on chronic diastolic (congestive) heart failure; G89.29 Other chronic pain; I48.91 Unspecified atrial fibrillation; Z79.82 Long term (current) use of aspirin; Z20.822 Contact with and (suspected) exposure to COVID-19
CPT/HCPCS: 71045; 80048; 80053; 81001; 83735; 83880; 84100; 84484; 85025; 93005; 93010; 93306; 99285-25; C9803; J1940; U0003